=== PATIENT | female | born 1970 | race Caucasian/White ===

== ENCOUNTER 2019-03-24 10:55 | Emergency (ER) | payer OTHER, SELFPAY ==
[2019-03-24 11:03] VITALS: BP 161/97; PULSE 61; RESP 18; TEMP 36.6; O2SAT 100; BMI 27.8
--- NOTE | 2019-03-24 18:53 | ED.WOUNDLAC ---
HPI - Wound/Laceration General Chief Complaint: Wound/Laceration Stated Complaint: Cat scratch in eye Related Data Home Medications Medication Instructions Recorded Confirmed multivitamin [Multiple Vitamins] 2 tab PO QPM #0 03/25/17 ferrous sulfate 325 mg PO DAILY #0 08/04/17 bupropion HCl 100 mg PO BID 03/24/19 03/24/19 buspirone 5 mg PO TID PRN 03/24/19 03/24/19 ergocalciferol (vitamin D2) 50,000 unit PO WEEKLY 03/24/19 03/24/19 estradiol 0.1 mg TOPICAL QWEEK 03/24/19 03/24/19 gabapentin 100 mg PO TID 03/24/19 oxycodone-acetaminophen 1 tab PO Q6H PRN 03/24/19 03/24/19 phentermine 18.75 - 37.5 mg PO QAM PRN 03/24/19 03/24/19 Allergies Allergy/AdvReac Type Severity Reaction Status Date / Time amoxicillin [AMOXICILLIN] Allergy Severe SWELLING Unverified 10/20/17 12:05 FACE, THROAT & HIVES ALL OVER. Penicillins [PENICILLINS] Allergy Intermediate RASH/ITCHING, Unverified 10/20/17 12:05 TROUBLE BREATHING. diphenhydramine Allergy Mild SWELLING. Unverified 10/20/17 12:05 [DIPHENHYDRAMINE] latex [LATEX] Allergy Mild RASH Unverified 10/20/17 12:05 magnesium citrate AdvReac Unknown VOMITING Unverified 10/20/17 12:05 [MAGNESIUM CITRATE] Exam Initial Vital Signs Initial Vital Signs: Vital Signs Temperature 97.9 F 03/24/19 11:03 Pulse Rate 61 03/24/19 11:03 Respiratory Rate 18 03/24/19 11:03 Blood Pressure 161/97 H 03/24/19 11:03 Pulse Oximetry 100 03/24/19 11:03 Course Vital Signs Vital signs: Vital Signs - 8 hr 03/24/19 11:03 Temperature 97.9 F Pulse Rate 61 Respiratory Rate 18 Blood Pressure 161/97 H Pulse Oximetry 100 Discharge Plan Departure Patient Disposition: Left Without Being Seen Clinical Impression: Patient left before evaluation by physician Discharge Date/Time: 03/24/19 17:07
== END 2019-03-24 17:07 | disposition left against medical advice (07) ==
PROVIDERS: Emergency Provider Emergency Medicine
DX: H57.89 Other specified disorders of eye and adnexa (principal)
CPT/HCPCS: 99282

== ENCOUNTER 2019-03-25 07:06 | Emergency (ER) | payer OTHER, SELFPAY ==
[2019-03-25 07:21] VITALS: BP 153/98; PULSE 62; RESP 20; TEMP 36.8; O2SAT 99
--- NOTE | 2019-03-25 07:27 | ED.WOUNDLAC ---
HPI - Wound/Laceration General Chief Complaint: Wound/Laceration Stated Complaint: Cat scratch on eyelid Time Seen by Provider: 03/25/19 07:27 Source: patient Mode of arrival: ambulatory Limitations: no limitations History of Present Illness HPI narrative: This is a 48-year-old female comes to the emergency department complaint of a scratch above her left eye on the eyelid that has had increasing swelling and redness over the last 24 hours. Patient actually arrived yesterday but left without being seen. The scratch it happened in the morning or overnight. She states since then there has been some increasing redness of the upper lid and some increasing swelling. She has some pain localized at that site. She denies any pain in the eye itself. She has not had any fever she is aware of. She states that there seems to be some slight swelling along the corners of the eye. Patient has not had severe headaches. She has not had any nausea vomiting. She states that it felt like there were bumps inside her mouth but that they went away patient states that she has history of fibromyalgia and it flared yesterday while waiting so she returned home. She states that she has had a hysterectomy in the past. She states she has allergies to antibiotics but that they are in the computer system. Patient denies any use of tobacco. States her tetanus is up-to-date as of 2016. Related Data Home Medications Medication Instructions Recorded Confirmed multivitamin [Multiple Vitamins] 2 tab PO QPM #0 03/25/17 ferrous sulfate 325 mg PO DAILY #0 08/04/17 bupropion HCl 100 mg PO BID 03/24/19 03/24/19 buspirone 5 mg PO TID PRN 03/24/19 03/24/19 ergocalciferol (vitamin D2) 50,000 unit PO WEEKLY 03/24/19 03/24/19 estradiol 0.1 mg TOPICAL QWEEK 03/24/19 03/24/19 gabapentin 100 mg PO TID 03/24/19 oxycodone-acetaminophen 1 tab PO Q6H PRN 03/24/19 03/24/19 phentermine 18.75 - 37.5 mg PO QAM PRN 03/24/19 03/24/19 Previous Rx's Medication Instructions Recorded doxycycline hyclate 100 mg PO BID #20 tab 03/25/19 Allergies Allergy/AdvReac Type Severity Reaction Status Date / Time amoxicillin [AMOXICILLIN] Allergy Severe SWELLING Verified 03/25/19 07:21 FACE, THROAT & HIVES ALL OVER. Penicillins [PENICILLINS] Allergy Intermediate RASH/ITCHING, Verified 03/25/19 07:21 TROUBLE BREATHING. diphenhydramine Allergy Mild SWELLING. Verified 03/25/19 07:21 [DIPHENHYDRAMINE] latex [LATEX] Allergy Mild RASH Verified 03/25/19 07:21 magnesium citrate AdvReac Unknown VOMITING Verified 03/25/19 07:21 [MAGNESIUM CITRATE] Review of Systems Review of Systems ROS Unobtainable: All systems reviewed & are unremarkable except as noted in HPI and below Constitutional Constitutional: Denies chills, Denies fever(s), Denies headache(s), Denies lethargy and Denies weakness Eyes Eyes: Denies change in vision, Denies eye discharge, Denies irritation, Denies loss of vision, Denies eye pain and Denies photophobia ENT Ears, Nose, Mouth, and Throat: Reports as per HPI, Denies headache(s) and Reports other (swelling, redness upper eyelid) Gastrointestinal Gastrointestinal: Denies nausea and Denies vomiting Integumentary/Breasts Skin/Breast: Reports as per HPI, Reports erythema and Reports wounds Neurologic Neurologic: Denies headache(s), Denies loss of vision and Denies weakness [facility] Social History Smoking Status: Never smoker Social History Smoking Status: Never smoker Exam Narrative Exam Narrative: GEN: well nourished, well appearing female, alert and oriented x 3, patient appears to be in mild distress. HEENT: Atraumatic, pupils are equal round reactive to light, extraocular movements are intact, patient has a small a 0.5 cm superficial laceration of the left upper lid over the area of the orbit patient has some swelling of the upper lid and orbit, there is some slight erythema, area slightly tender to touch, there is no drainage, there is no swelling noted extending around the eye or below, nares are clear, TMs are clear with no fluid, there is no conjunctival pallor. Throat is clear without any exudates, erythema, tonsillar enlargement or uvular deviation HEART: Regular rate and rhythm without murmur LUNGS:Lungs clear to auscultation, no wheezes, rales, crackles, chest moves symmetrically ABD:bowel sounds normal, soft, non-tender, no guarding, rebound, rigidity, no masses noted, no hepatosplenomegaly MSCL: full range of motion, normal gait NEURO:CN 2-12 intact, sensation normal Initial Vital Signs Initial Vital Signs: Vital Signs Temperature 98.3 F 03/25/19 07:21 Pulse Rate 62 03/25/19 07:21 Respiratory Rate 20 03/25/19 07:21 Blood Pressure 153/98 H 03/25/19 07:21 Pulse Oximetry 99 03/25/19 07:21 Course Orders Ordered: Discontinued Medications Doxycycline Hyclate (Vibramycin) 100 mg PO NOW ONE Stop: 03/25/19 07:46 Last Admin: 03/25/19 07:58 Dose: 100 mg Documented by: LENORA Vital Signs Vital signs: Vital Signs - 8 hr 03/25/19 07:21 Temperature 98.3 F Pulse Rate 62 Respiratory Rate 20 Blood Pressure 153/98 H Pulse Oximetry 99 MDM - Wound/Laceration MDM Narrative Medical decision making narrative: The patient has cellulitis from a small cat scratch, tetanus is up-to-date. Patient states CT is immunized. Patient states that she has allergies to medications she does not recall but states they are in the computer. When reviewed set amoxicillin sutured wound asked directly she thought that she also had allergies to Augmentin. There is potentially some cross-reactivity so patient was started on doxycycline. Discharge Plan Departure Patient Disposition: Home Clinical Impression: Cat scratch of face, Cellulitis of eyelid Discharge Date/Time: 03/25/19 08:34 Instructions: DI for Cat Scratch Disease/Fever Activity Restrictions/Additional Instructions: Follow up for recheck if not improving in the next 24-48 hours. Take antibiotics until completely gone. You may take tylenol and/or ibuprofen as needed for pain. Return to the emergency department for fevers greater than 100.4 F, rapidly worsening redness, swelling, pain within the eye, new vision changes, any purulent drainage, severe headaches, persistent vomiting or other new or concerning symptoms. Prescriptions: New doxycycline hyclate 100 mg tablet 100 mg PO BID Qty: 20 RF: 0 No Action multivitamin [Multiple Vitamins] 1 EACH tablet 2 tab PO QPM Qty: 0 RF: 0 ferrous sulfate 325 mg (65 mg iron) Tablet 325 mg PO DAILY Qty: 0 RF: 0 buspirone 5 mg tablet 5 mg PO TID PRN (Reason: Anxiety) RF: 0 phentermine 37.5 mg tablet 18.75 - 37.5 mg PO QAM PRN (Reason: weight loss) RF: 0 bupropion HCl 100 mg tablet sustained-release 12 hr 100 mg PO BID RF: 0 oxycodone-acetaminophen 5-325 mg tablet 1 tab PO Q6H PRN (Reason: pain) RF: 0 gabapentin 100 mg capsule 100 mg PO TID RF: 0 ergocalciferol (vitamin D2) 50,000 unit capsule 50,000 unit PO WEEKLY RF: 0 estradiol 0.1 mg/24 hr patch weekly 0.1 mg topical QWEEK RF: 0 Referrals: Julian Madera MD [Primary Care Provider] -
[2019-03-25] MEDS: DOXYCYCLINE HYCLATE 100 MG TABLET PO (07:58)
[2019-03-25 08:30] VITALS: BP 147/92; PULSE 83; RESP 14; O2SAT 98
== END 2019-03-25 08:34 | disposition home or self-care (01) ==
PROVIDERS: Emergency Provider Emergency Medicine
DX: S00.212A Abrasion of left eyelid and periocular area, initial encounter (principal); H00.036 Abscess of eyelid left eye, unspecified eyelid
CPT/HCPCS: 99282; 99283

== ENCOUNTER 2019-04-25 12:18 | Emergency (ER) | payer OTHER, SELFPAY ==
[2019-04-25 12:21] VITALS: BP 157/97; PULSE 73; RESP 18; TEMP 36.1; O2SAT 99
[2019-04-25 13:09] LABS: Add Manual Diff / Slide Review NO; Basophils Absolute Auto 0 /uL (0-100); Basophils Percent Auto 0.2 % (0-2); Eosinophils Absolute Auto 100 /uL (0-450); Eosinophils Percent Auto 1.1 % (2-4); Hematocrit 38.1 % (36-46); Hemoglobin 12.9 g/dL (12.0-16.0); Lymphocytes Absolute Auto 1200 /uL (1100-4500); Lymphocytes Percent Auto 19.4 % (25-40); Mean Corpuscular Hemoglobin 29.4 PG (26-34); Mean Corpuscular Volume 86.6 fL (80-100); Monocytes Absolute Auto 400 /uL (0-900); Neutrophils Absolute Auto 4600 /uL (1500-7000); Neutrophils Percent Auto 72.3 % (50-75); Platelet Count 173 X10^3/uL (150-400); Red Cell Distribution Width 13.5 % (11.6-14.8); White Blood Cell Count 6.4 X10^3/uL (4.5-11.0)
[2019-04-25 13:12] LABS: INR 0.9 (0.9-1.3); Prothrombin Time 10.6 SECONDS (10.1-12.7)
[2019-04-25 13:14] LABS: PTT Partial Thromboplastin Tim 36 SECONDS (26.4-36.2)
[2019-04-25 13:17] LABS: Alanine Aminotransferase 29 IU/L (9-52); Albumin 4.3 g/dL (3.5-5.0); Albumin Globulin Ratio 1.9 (1.0-2.8); Alkaline Phosphatase 62 U/L (38-126); Aspartate Aminotransferase 32 IU/L (14-36); Bilirubin Total 0.5 mg/dL (0.2-1.3); Blood Urea Nitrogen 17 mg/dL (7-17); Calcium 9.3 mg/dL (8.4-10.2); Carbon Dioxide 28 mmol/L (22-32); Chloride 105 mmol/L (98-107); Estimated Glomerular Filt Rate > 60.0 mL/min (>60); Globulin 2.3 g/dL (1.7-4.1); Glucose 87 mg/dL (70-100); HEMOLYSIS < 15 (0-50); Lipase 234 U/L (23-300); Potassium 3.8 mmol/L (3.4-5.1); Sodium 142 mmol/L (137-145); Total Protein 6.6 g/dL (6.3-8.2)
[2019-04-25 13:42] LABS: Bacteria Urine None Seen; RBC Urine None Seen (0-5/HPF); WBC Urine None Seen (0-5/HPF)
--- NOTE | 2019-04-25 13:48 | PC.NURSE ---
Pt brought urine over to RN desk. UAC and UDS sent. pt asking can i go home now advised she needs to be seen by provider. states she is here for low blood sugar and that she recently stopped taking all my meds without reason. BG 78 in triage. given juice and crackers. repeat at this time 93. appears well, drowsy. lungs clear. resting on stretcher. labs drawn in triage and awaiting results. NAD.
[2019-04-25 13:51] LABS: UR Morphine/Opiate cutoff 300 Negative (Negative); Ur Creatinine Normal (Normal); Ur Specific Gravity Normal (Normal); Urine Amphetamines Negative (Negative); Urine Barbiturates Negative (Negative); Urine Benzodiazepines Negative (Negative); Urine Cocaine Negative (Negative); Urine MDMA Negative (Negative); Urine Methadone Negative (Negative); Urine Methamphetamines Negative (Negative); Urine Oxycodone Negative (Negative); Urine Phencyclidine Negative (Negative); Urine Tetrahydrocannabinol Negative (Negative); Urine Tricyclic Antidepressant Negative (Negative); Urine pH Normal (Normal)
[2019-04-25 13:52] LABS: Calcium Oxalate Crystals Urine Few; Culture Indicated Urine Cult Not Indicated
[2019-04-25 14:19] VITALS: BP 145/78; BP 148/90; PULSE 63; PULSE 77; RESP 16; RESP 18; O2SAT 97; O2SAT 99
--- NOTE | 2019-04-25 19:38 | ED.DIZZY ---
HPI - Dizziness <Kaye Maradiaga NOODLE PRESS OPERATOR-BC - Last Filed: 04/25/19 20:01> General Chief Complaint: Dizziness Stated Complaint: low blood sugar Time Seen by Provider: 04/25/19 12:45 Source: patient Mode of arrival: Ambulatory Limitations: no limitations History of Present Illness HPI Narrative: The patient is a 48-year-old female nonsmoker with a chief complaint of ?my blood sugar was low.The patient denies any history of diabetes. She states that she has a history of hypoglycemia. She states that she felt her blood sugar was low, so she ate some sugar and she use and did not come back up. She states she had a sugar stick and felt slightly better but not fully recovered so she wanted to come to the emergency department. She states that she felt shaky and like her blood sugar was low, but she did not check it. She denies any fevers nausea vomiting diarrhea or chest pain. She denies any cardiac history. Her blood sugar was taken in triage and it was 78, so she was given food and fluids. She states she feels much improved. The patient also notes that she stopped taking her medications 2 weeks ago and has been slowly restarting them. She states she has not followed up with regular doctor regarding her medications Related Data Home Medications Medication Instructions Recorded Confirmed multivitamin [Multiple Vitamins] 2 tab PO QPM #0 03/25/17 ferrous sulfate 325 mg PO DAILY #0 08/04/17 buspirone 5 mg PO TID PRN 03/24/19 03/24/19 ergocalciferol (vitamin D2) 50,000 unit PO WEEKLY 03/24/19 04/25/19 estradiol 0.1 mg TOPICAL QWEEK 03/24/19 04/25/19 gabapentin 100 mg PO TID 03/24/19 04/25/19 oxycodone-acetaminophen 1 tab PO Q6H PRN 03/24/19 04/25/19 phentermine 18.75 - 37.5 mg PO QAM PRN 03/24/19 04/25/19 bupropion HCl 100 mg PO BID 04/25/19 04/25/19 Allergies Allergy/AdvReac Type Severity Reaction Status Date / Time amoxicillin [AMOXICILLIN] Allergy Severe SWELLING Verified 04/25/19 12:26 FACE, THROAT & HIVES ALL OVER. Penicillins [PENICILLINS] Allergy Intermediate RASH/ITCHING, Verified 04/25/19 12:26 TROUBLE BREATHING. diphenhydramine Allergy Mild SWELLING. Verified 04/25/19 12:26 [DIPHENHYDRAMINE] latex [LATEX] Allergy Mild RASH Verified 04/25/19 12:26 magnesium citrate AdvReac Unknown VOMITING Verified 04/25/19 12:26 [MAGNESIUM CITRATE] Review of Systems <JAIME Salazar - Last Filed: 04/25/19 20:01> Review of Systems Narrative: GENERAL: Denies chills, fatigue, malaise, fever, sweats. HEENT: Denies sinus pain, ear pain, sore throat, difficulty swallowing, dizziness. RESPIRATORY: Denies dyspnea, cough, wheezing, hemoptysis, sputum. CARDIOVASCULAR: Denies chest pain, palpitations, orthopnea, edema, GASTROINTESTINAL: Denies nausea, vomiting, abdominal pain, diarrhea, constipation, melena. : Denies dysuria, frequency, incontinence, hematuria, urinary retention. MUSCULOSKELETAL: denies weakness, joint pain, or bony pain SKIN: Denies rash, skin lesions, or other NEUROLOGIC: See HPI PSYCHIATRIC: No concerning psychosocial issues. 12 point review of systems is negative except for those stated above Patient History <JAIME Salazar - Last Filed: 04/25/19 20:01> Social History Smoking Status: Never smoker alcohol intake frequency: 0-2 drinks per day Substance Use Type: does not use Exam <JAIME Salazar - Last Filed: 04/25/19 20:01> Narrative Exam Narrative: GENERAL: This is a well-nourished, well-developed patient, no acute distress HEAD: Atraumatic. Normocephalic. No temporal or scalp tenderness. EYES: Pupils equal round and reactive. Extraocular motions intact. No scleral icterus. No injection or drainage. ENT: Nose without bleeding, purulent drainage or septal hematoma. Throat without erythema, tonsillar hypertrophy or exudate. Uvula midline. Airway patent. NECK: Trachea midline. No JVD or lymphadenopathy. Supple, nontender, no meningeal signs. CARDIOVASCULAR: Regular rate and rhythm without murmurs, gallops, or rubs. RESPIRATORY: Clear to auscultation. Breath sounds equal bilaterally. No wheezes, rales, or rhonchi. No cough. No increased respiratory effort. No accessory muscle use. GASTROINTESTINAL: Abdomen soft, non-tender, nondistended. No hepato-splenomegaly, or palpable masses. No guarding. EXTREMITIES: No clubbing, cyanosis, or edema. No joint tenderness, effusion, or edema noted. BACK: Nontender without deformity or crepitance. No flank tenderness. NEURO: AOx3. No slurred speech. Steady gait. Strength is equal upper and lower extremities bilaterally. No gross cranial nerve deficit. SKIN: No rash or erythema. Initial Vital Signs Initial Vital Signs: Vital Signs Temperature 97.0 F L 04/25/19 12:21 Pulse Rate 73 04/25/19 12:21 Respiratory Rate 18 04/25/19 12:21 Blood Pressure 157/97 H 04/25/19 12:21 Pulse Oximetry 99 04/25/19 12:21 <Kingsley Harris DO - Last Filed: 05/01/19 07:01> Initial Vital Signs Initial Vital Signs: Vital Signs Temperature 97.0 F L 04/25/19 12:21 Pulse Rate 73 04/25/19 12:21 Respiratory Rate 18 04/25/19 12:21 Blood Pressure 157/97 H 04/25/19 12:21 Pulse Oximetry 99 04/25/19 12:21 Scores <KATARZYNA Salazar - Last Filed: 04/25/19 20:01> GCS [place] coma scale eye opening: Spontaneous Rhys coma scale verbal response: Orientated Rhys coma scale motor response: Obey commands Rhys coma scale total score: 15 Course <KATARZYNA Salazar - Last Filed: 04/25/19 20:01> Orders Ordered: ED Orders 04/25/19 12:55 Complete Blood Count AUTO DIFF Stat Comprehensive Metabolic Panel Stat Lipase Stat Partial Thromboplastin Time Stat Prothrombin Time INR Stat 04/25/19 13:23 Urine Drug Screen, Rapid Stat Urine Microscopic Stat Vital Signs Vital signs: Vital Signs - 8 hr 04/25/19 12:21 04/25/19 14:19 Temperature 97.0 F L Pulse Rate 73 77 Respiratory Rate 18 16 Blood Pressure 157/97 H 148/90 H Pulse Oximetry 99 97 <DO Hunter Arevalo Last Filed: 05/01/19 07:01> Orders Ordered: ED Orders 04/25/19 12:55 Complete Blood Count AUTO DIFF Stat Comprehensive Metabolic Panel Stat Lipase Stat Partial Thromboplastin Time Stat Prothrombin Time INR Stat 04/25/19 13:23 Urine Drug Screen, Rapid Stat Urine Microscopic Stat Vital Signs Vital signs: Vital Signs - 8 hr 04/25/19 12:21 04/25/19 14:19 Temperature 97.0 F L Pulse Rate 73 77 Respiratory Rate 18 16 Blood Pressure 157/97 H 148/90 H Pulse Oximetry 99 97 MDM - Dizziness <JAIME SalazarBC - Last Filed: 04/25/19 20:01> Lab Data Result diagrams: 04/25/19 12:55 04/25/19 12:55 Labs: Lab Results 04/25/19 04/25/19 04/25/19 Range/Units 12:55 12:55 12:55 WBC 6.4 (4.5-11.0) X10^3/uL RBC 4.40 (4.0-5.2) X10^6/uL Hgb 12.9 (12.0-16.0) g/dL Hct 38.1 (36-46) % MCV 86.6 (80-100) fL MCH 29.4 (26-34) PG MCHC 34.0 (30-36) % RDW 13.5 (11.6-14.8) % Plt Count 173 (150-400) X10^3/uL Neut % (Auto) 72.3 (50-75) % Lymph % (Auto) 19.4 L (25-40) % [place] % (Auto) 7.0 (3-14) % Eos % (Auto) 1.1 L (2-4) % Baso % (Auto) 0.2 (0-2) % Neut # (Auto) 4600 (8047-6816) /uL Lymph # (Auto) 1200 (4841-6946) /uL [place] # (Auto) 400 (0-900) /uL Eos # (Auto) 100 (0-450) /uL Baso # (Auto) 0 (0-100) /uL PT 10.6 (10.1-12.7) SECONDS INR 0.9 (0.9-1.3) APTT 36 (26.4-36.2) SECONDS Sodium 142 (137-145) mmol/L Potassium 3.8 (3.4-5.1) mmol/L Chloride 105 (98-107) mmol/L Carbon Dioxide 28 (22-32) mmol/L BUN 17 (7-17) mg/dL Creatinine 0.50 L (0.52-1.04) mg/dL Estimated GFR > 60.0 (>60) mL/min BUN/Creatinine Ratio 34.0 H (6-22) Glucose 87 (70-100) mg/dL Calcium 9.3 (8.4-10.2) mg/dL Total Bilirubin 0.5 (0.2-1.3) mg/dL AST 32 (14-36) IU/L ALT 29 (9-52) IU/L Alkaline Phosphatase 62 (38-126) U/L Total Protein 6.6 (6.3-8.2) g/dL Albumin 4.3 (3.5-5.0) g/dL Globulin 2.3 (1.7-4.1) g/dL Albumin/Globulin Ratio 1.9 (1.0-2.8) Lipase 234 (23-300) U/L Urine RBC (0-5/HPF) Urine WBC (0-5/HPF) Calcium Oxalate Crystal Urine Bacteria (None) Ur Culture Indicated? U Morph 300 ng/mL cutoff (Negative) Ur Oxycodone Screen (Negative) Urine Methadone Screen (Negative) Ur Barbiturates Screen (Negative) U Tricyclic Antidepress (Negative) Ur Phencyclidine Scrn (Negative) Ur Amphetamines Screen (Negative) U Methamphetamines Scrn (Negative) Ur MDMA Scrn (Ecstasy) (Negative) U Benzodiazepines Scrn (Negative) Urine Cocaine Screen (Negative) U Marijuana (THC) Screen (Negative) 04/25/19 04/25/19 Range/Units 13:23 13:23 WBC (4.5-11.0) X10^3/uL RBC (4.0-5.2) X10^6/uL Hgb (12.0-16.0) g/dL Hct (36-46) % MCV (80-100) fL MCH (26-34) PG MCHC (30-36) % RDW (11.6-14.8) % Plt Count (150-400) X10^3/uL Neut % (Auto) (50-75) % Lymph % (Auto) (25-40) % [place] % (Auto) (3-14) % Eos % (Auto) (2-4) % Baso % (Auto) (0-2) % Neut # (Auto) (1271-9430) /uL Lymph # (Auto) (7153-0301) /uL [place] # (Auto) (0-900) /uL Eos # (Auto) (0-450) /uL Baso # (Auto) (0-100) /uL PT (10.1-12.7) SECONDS INR (0.9-1.3) APTT (26.4-36.2) SECONDS Sodium (137-145) mmol/L Potassium (3.4-5.1) mmol/L Chloride (98-107) mmol/L Carbon Dioxide (22-32) mmol/L BUN (7-17) mg/dL Creatinine (0.52-1.04) mg/dL Estimated GFR (>60) mL/min BUN/Creatinine Ratio (6-22) Glucose (70-100) mg/dL Calcium (8.4-10.2) mg/dL Total Bilirubin (0.2-1.3) mg/dL AST (14-36) IU/L ALT (9-52) IU/L Alkaline Phosphatase (38-126) U/L Total Protein (6.3-8.2) g/dL Albumin (3.5-5.0) g/dL Globulin (1.7-4.1) g/dL Albumin/Globulin Ratio (1.0-2.8) Lipase (23-300) U/L Urine RBC None seen (0-5/HPF) Urine WBC None seen (0-5/HPF) Calcium Oxalate Crystal Few H Urine Bacteria None seen (None) Ur Culture Indicated? Cult not indicated U Morph 300 ng/mL cutoff Negative (Negative) Ur Oxycodone Screen Negative (Negative) Urine Methadone Screen Negative (Negative) Ur Barbiturates Screen Negative (Negative) U Tricyclic Antidepress Negative (Negative) Ur Phencyclidine Scrn Negative (Negative) Ur Amphetamines Screen Negative (Negative) U Methamphetamines Scrn Negative (Negative) Ur MDMA Scrn (Ecstasy) Negative (Negative) U Benzodiazepines Scrn Negative (Negative) Urine Cocaine Screen Negative (Negative) U Marijuana (THC) Screen Negative (Negative) Point of Care Testing Glucose POC 93 Urine Dip Bedside Urine Glucose Negative Bedside Urine Bilirubin + 1 Bedside Urine Ketone - Negative Urine Specific [place] 1.020 Bedside Urine Occult Blood - Negative Bedside Urine pH 6.0 Bedside Urine Protein - Negative Bedside Urine Urobilinogen - Negative Bedside Urine Nitrite - Negative Bedside Urine Leukocytes - Negative Esterase MDM Narrative Medical decision making narrative: The patient is a 48-year-old female who presents with a chief complaint of my blood sugar was low earlier.She overall has a benign exam, is not hypoglycemic in the emergency department after a snack. The patient declined any EKG, imaging or further workup. She states that her heart is fine. After a nap, she requested to leave and stated she did not want further workup and wanted to go home. I did encourage the patient to follow up with primary care provider and encouraged not changing her medications and dosages by her own accord. I instructed her to come back to the emergency department for any acute concerns such as concern of heart attack or stroke. Patient has no questions or concerns upon discharge and states understanding of return precautions as well as follow-up care. <Kingsley Harris, DO - Last Filed: 05/01/19 07:01> Lab Data Labs: Lab Results 04/25/19 04/25/19 04/25/19 Range/Units 12:55 12:55 12:55 WBC 6.4 (4.5-11.0) X10^3/uL RBC 4.40 (4.0-5.2) X10^6/uL Hgb 12.9 (12.0-16.0) g/dL Hct 38.1 (36-46) % MCV 86.6 (80-100) fL MCH 29.4 (26-34) PG MCHC 34.0 (30-36) % RDW 13.5 (11.6-14.8) % Plt Count 173 (150-400) X10^3/uL Neut % (Auto) 72.3 (50-75) % Lymph % (Auto) 19.4 L (25-40) % [place] % (Auto) 7.0 (3-14) % Eos % (Auto) 1.1 L (2-4) % Baso % (Auto) 0.2 (0-2) % Neut # (Auto) 4600 (4559-3294) /uL Lymph # (Auto) 1200 (4774-2269) /uL [place] # (Auto) 400 (0-900) /uL Eos # (Auto) 100 (0-450) /uL Baso # (Auto) 0 (0-100) /uL PT 10.6 (10.1-12.7) SECONDS INR 0.9 (0.9-1.3) APTT 36 (26.4-36.2) SECONDS Sodium 142 (137-145) mmol/L Potassium 3.8 (3.4-5.1) mmol/L Chloride 105 (98-107) mmol/L Carbon Dioxide 28 (22-32) mmol/L BUN 17 (7-17) mg/dL Creatinine 0.50 L (0.52-1.04) mg/dL Estimated GFR > 60.0 (>60) mL/min BUN/Creatinine Ratio 34.0 H (6-22) Glucose 87 (70-100) mg/dL Calcium 9.3 (8.4-10.2) mg/dL Total Bilirubin 0.5 (0.2-1.3) mg/dL AST 32 (14-36) IU/L ALT 29 (9-52) IU/L Alkaline Phosphatase 62 (38-126) U/L Total Protein 6.6 (6.3-8.2) g/dL Albumin 4.3 (3.5-5.0) g/dL Globulin 2.3 (1.7-4.1) g/dL Albumin/Globulin Ratio 1.9 (1.0-2.8) Lipase 234 (23-300) U/L Urine RBC (0-5/HPF) Urine WBC (0-5/HPF) Calcium Oxalate Crystal Urine Bacteria (None) Ur Culture Indicated? U Morph 300 ng/mL cutoff (Negative) Ur Oxycodone Screen (Negative) Urine Methadone Screen (Negative) Ur Barbiturates Screen (Negative) U Tricyclic Antidepress (Negative) Ur Phencyclidine Scrn (Negative) Ur Amphetamines Screen (Negative) U Methamphetamines Scrn (Negative) Ur MDMA Scrn (Ecstasy) (Negative) U Benzodiazepines Scrn (Negative) Urine Cocaine Screen (Negative) U Marijuana (THC) Screen (Negative) 04/25/19 04/25/19 Range/Units 13:23 13:23 WBC (4.5-11.0) X10^3/uL RBC (4.0-5.2) X10^6/uL Hgb (12.0-16.0) g/dL Hct (36-46) % MCV (80-100) fL MCH (26-34) PG MCHC (30-36) % RDW (11.6-14.8) % Plt Count (150-400) X10^3/uL Neut % (Auto) (50-75) % Lymph % (Auto) (25-40) % [place] % (Auto) (3-14) % Eos % (Auto) (2-4) % Baso % (Auto) (0-2) % Neut # (Auto) (9279-1745) /uL Lymph # (Auto) (4769-3291) /uL [place] # (Auto) (0-900) /uL Eos # (Auto) (0-450) /uL Baso # (Auto) (0-100) /uL PT (10.1-12.7) SECONDS INR (0.9-1.3) APTT (26.4-36.2) SECONDS Sodium (137-145) mmol/L Potassium (3.4-5.1) mmol/L Chloride (98-107) mmol/L Carbon Dioxide (22-32) mmol/L BUN (7-17) mg/dL Creatinine (0.52-1.04) mg/dL Estimated GFR (>60) mL/min BUN/Creatinine Ratio (6-22) Glucose (70-100) mg/dL Calcium (8.4-10.2) mg/dL Total Bilirubin (0.2-1.3) mg/dL AST (14-36) IU/L ALT (9-52) IU/L Alkaline Phosphatase (38-126) U/L Total Protein (6.3-8.2) g/dL Albumin (3.5-5.0) g/dL Globulin (1.7-4.1) g/dL Albumin/Globulin Ratio (1.0-2.8) Lipase (23-300) U/L Urine RBC None seen (0-5/HPF) Urine WBC None seen (0-5/HPF) Calcium Oxalate Crystal Few H Urine Bacteria None seen (None) Ur Culture Indicated? Cult not indicated U Morph 300 ng/mL cutoff Negative (Negative) Ur Oxycodone Screen Negative (Negative) Urine Methadone Screen Negative (Negative) Ur Barbiturates Screen Negative (Negative) U Tricyclic Antidepress Negative (Negative) Ur Phencyclidine Scrn Negative (Negative) Ur Amphetamines Screen Negative (Negative) U Methamphetamines Scrn Negative (Negative) Ur MDMA Scrn (Ecstasy) Negative (Negative) U Benzodiazepines Scrn Negative (Negative) Urine Cocaine Screen Negative (Negative) U Marijuana (THC) Screen Negative (Negative) Point of Care Testing Glucose POC 93 Urine Dip Bedside Urine Glucose Negative Bedside Urine Bilirubin + 1 Bedside Urine Ketone - Negative Urine Specific [place] 1.020 Bedside Urine Occult Blood - Negative Bedside Urine pH 6.0 Bedside Urine Protein - Negative Bedside Urine Urobilinogen - Negative Bedside Urine Nitrite - Negative Bedside Urine Leukocytes - Negative Esterase Discharge Plan Departure Patient Disposition: Home Clinical Impression: Dizziness Discharge Date/Time: 04/25/19 14:20 Instructions: DI for Dizziness-Nonvertigo Activity Restrictions/Additional Instructions: Your blood sugar and your lab work came back well today. Your urine has no signs of infection. You have declined any further workup in the emergency department. Please follow up with primary care provider in a few days and come back to the emergency department if you have any acute concerns such as concern of heart attack or stroke etc. I strongly suggest that you take your regular medications as instructed by your primary care provider. Prescriptions: No Action multivitamin [Multiple Vitamins] 1 EACH tablet 2 tab PO QPM Qty: 0 RF: 0 ferrous sulfate 325 mg (65 mg iron) Tablet 325 mg PO DAILY Qty: 0 RF: 0 bupropion HCl 100 mg tablet sustained-release 12 hr 100 mg PO BID RF: 0 buspirone 5 mg tablet 5 mg PO TID PRN (Reason: Anxiety) RF: 0 phentermine 37.5 mg tablet 18.75 - 37.5 mg PO QAM PRN (Reason: weight loss) RF: 0 oxycodone-acetaminophen 5-325 mg tablet 1 tab PO Q6H PRN (Reason: pain) RF: 0 gabapentin 100 mg capsule 100 mg PO TID RF: 0 ergocalciferol (vitamin D2) 50,000 unit capsule 50,000 unit PO WEEKLY RF: 0 estradiol 0.1 mg/24 hr patch weekly 0.1 mg topical QWEEK RF: 0 Referrals: Julian Madera MD [Primary Care Provider] - <Kingsley Harris DO - Last Filed: 05/01/19 07:01> Sign Out Provider Sign Out Attestation: I was available for consultation during this patient's emergency department visit. This chart is signed by myself for administrative purposes only. I did not have direct contact with this patient during this visit. They were seen independently by the APC.
== END 2019-04-25 14:20 | disposition home or self-care (01) ==
PROVIDERS: Emergency Medicine; Emergency Provider Nurse Practitioner Family
DX: R42 Dizziness and giddiness (principal)
CPT/HCPCS: 36415; 80053; 80305; 81003; 81015; 82962; 83690; 85025; 85610; 85730; 99283

== ENCOUNTER 2019-07-29 14:36 | Emergency (ER) | payer SELFPAY ==
[2019-07-29] VITALS (7 sets, daily range): BP systolic 137–139; BP diastolic 72–86; PULSE 86–122; RESP 16–24; TEMP 37.7–38.3; O2SAT 95–99
--- NOTE | 2019-07-29 14:50 | DI.RAD.S_ITS ---
PROCEDURE: XR CHEST 1V INDICATIONS: suspected sepsis TECHNIQUE: One view of the chest was acquired. COMPARISON: [facility], CHEST 2 VIEW, 08/11/2009, 21:12. [facility], , CHEST 1 VIEW, 11/11/2009, 22:03. [facility], , CHEST 1 VIEW, 03/25/2017, 14:51. FINDINGS: Surgical changes and devices: Left upper quadrant postoperative changes are seen. Lungs and pleura: An incomplete inspiratory result is noted, causing a crowded appearance to the lung markings. No focal infiltrates are seen. No pneumothorax or significant pleural effusions are seen. Mediastinum: Mediastinal contours appear normal. Heart size is normal. Bones and chest wall: No suspicious bony lesions. Overlying soft tissues appear unremarkable. IMPRESSION: Limited portable chest examination, without a significant cardiopulmonary abnormality identified. Dictated by: Td Dumont M.D. on 07/29/2019 at 14:15 Approved by: Td Dumont M.D. on 07/29/2019 at 14:16
[2019-07-29] MEDS: ACETAMINOPHEN 325 MG TABLET 975 MG PO (15:28)
--- NOTE | 2019-07-29 15:29 | ED.FEVER ---
HPI - Fever General Chief Complaint: Fever Stated Complaint: bladder infection couple days ago having fever now Time Seen by Provider: 07/29/19 15:05 Source: patient Mode of arrival: Ambulatory Limitations: no limitations History of Present Illness HPI Narrative: Patient is a 48-year-old female who presents with bilateral flank pain fever and unknown UTI. She says that she was diagnosed with a UTI 5 days ago she was prescribed antibiotic but she has not picked it up yet. She continues to have urinary frequency but denies dysuria. She does have some blood in her urine. She is currently febrile and tachycardic. She denies nausea vomiting or abdominal pain. MD complaint: fever and weakness Related Data Home Medications Medication Instructions Recorded Confirmed multivitamin [Multiple Vitamins] 2 tab PO QPM #0 03/25/17 ferrous sulfate 325 mg PO DAILY #0 08/04/17 buspirone 5 mg PO TID PRN 03/24/19 03/24/19 ergocalciferol (vitamin D2) 50,000 unit PO WEEKLY 03/24/19 04/25/19 estradiol 0.1 mg TOPICAL QWEEK 03/24/19 04/25/19 gabapentin 100 mg PO TID 03/24/19 04/25/19 oxycodone-acetaminophen 1 tab PO Q6H PRN 03/24/19 04/25/19 phentermine 18.75 - 37.5 mg PO QAM PRN 03/24/19 04/25/19 bupropion HCl 100 mg PO BID 04/25/19 04/25/19 Previous Rx's Medication Instructions Recorded ciprofloxacin HCl [Cipro] 500 mg PO Q12H #14 tab 07/29/19 Allergies Allergy/AdvReac Type Severity Reaction Status Date / Time amoxicillin [AMOXICILLIN] Allergy Severe SWELLING Verified 04/25/19 12:26 FACE, THROAT & HIVES ALL OVER. Penicillins [PENICILLINS] Allergy Intermediate RASH/ITCHING, Verified 04/25/19 12:26 TROUBLE BREATHING. diphenhydramine Allergy Mild SWELLING. Verified 04/25/19 12:26 [DIPHENHYDRAMINE] latex [LATEX] Allergy Mild RASH Verified 04/25/19 12:26 magnesium citrate AdvReac Unknown VOMITING Verified 04/25/19 12:26 [MAGNESIUM CITRATE] Review of Systems Review of Systems Narrative: GENERAL: Denies chills, fatigue, malaise, fever, sweats, travel HEENT: Denies sinus pain, ear pain, sore throat, difficulty swallowing, neck pain RESPIRATORY: Denies dyspnea, cough, wheezing, hemoptysis, sputum. CARDIOVASCULAR: Denies chest pain, palpitations, orthopnea, edema GASTROINTESTINAL: Denies nausea, vomiting, abdominal pain, diarrhea, constipation, melena. : See HPI MUSCULOSKELETAL: Denies weakness, joint pain, or bony pain SKIN: No rash, no erythema, no pruritus NEUROLOGIC: Denies weakness, dizziness, headache, numbness, change in speech, confusion PSYCHIATRIC: No concerning psychosocial issues. 12 point review of systems is negative except for those stated above and HPI Patient History Medical History Fibromyalgia (Acute) Social History Smoking Status: Never smoker Smoking Status: Never smoker alcohol intake frequency: 0-2 drinks per day Substance Use Type: does not use Exam Initial Vital Signs Initial Vital Signs: Vital Signs Temperature 101 F H 07/29/19 14:46 Pulse Rate 122 H 07/29/19 14:46 Respiratory Rate 24 07/29/19 14:46 Blood Pressure 139/86 07/29/19 14:46 Pulse Oximetry 99 07/29/19 14:46 GENERAL: Well-appearing, well-nourished and in no acute distress. HEENT: Head atraumatic,EOMI, pupils reactive, face symmetric, moist mucous membranes CARDIOVASCULAR: Regular rate and rhythm without murmurs, rubs or gallops. RESPIRATORY: Breath sounds equal bilaterally, no wheezes rales or rhonchi. ABDOMEN: Soft, nontender. Normoactive bowel sounds all 4 quadrants. No guarding or rebound. : Mild bilateral flank pain CVA tenderness EXTREMITIES: Normal range of motion, no clubbing or edema. Neurovascularly intact NEUROLOGICAL: Alert and oriented x4.Normal gait and speech. Cranial nerves II through XII grossly intact. SKIN: Warm, dry, no laceration, no petechiae, no rashes or lesions. Course Orders Ordered: ED Orders 07/29/19 14:50 XR chest 1V Stat Urine Culture Stat Urine Microscopic Stat EKG-12 Lead Stat RT Consult Eval and Treat Now 07/29/19 15:45 Blood Culture Stat Complete Blood Count AUTO DIFF Stat Comprehensive Metabolic Panel Stat Lactate (Lactic Acid) Stat Lipase Stat Partial Thromboplastin Time Stat Procalcitonin Stat Prothrombin Time INR Stat Discontinued Medications Acetaminophen (Tylenol) 975 mg PO NOW ONE Stop: 07/29/19 15:23 Last Admin: 07/29/19 15:28 Dose: 975 mg Documented by: EDINSON Hydromorphone HCl (Dilaudid) 1 mg IV NOW ONE Stop: 07/29/19 16:55 Last Admin: 07/29/19 17:04 Dose: 1 mg Documented by: EDINSON Sodium Chloride (Normal Saline 0.9%) 1,000 mls @ 1,000 mls/hr IV BOLUS ONE Stop: 07/29/19 15:49 Last Infusion: 07/29/19 16:43 Dose: 0 mls/hr Documented by: Admin: 07/29/19 15:49 Dose: 1,000 mls/hr Documented by: SANDI Levofloxacin (Levaquin) 750 mg in 150 mls @ 100 mls/hr IV NOW ONE Stop: 07/29/19 17:16 Last Infusion: 07/29/19 17:32 Dose: 0 mls/hr Documented by: Admin: 07/29/19 15:50 Dose: 100 mls/hr Documented by: SANDI Ondansetron HCl (Zofran) 4 mg IV NOW ONE Stop: 07/29/19 14:51 Last Admin: 07/29/19 15:49 Dose: 4 mg Documented by: SANDI Vital Signs Vital signs: Vital Signs - 8 hr 07/29/19 14:46 07/29/19 15:28 07/29/19 16:29 Temperature 101 F H 101.0 F H 100.4 F H Pulse Rate 122 H Respiratory Rate 24 Blood Pressure 139/86 Blood Pressure [Left Arm] Pulse Oximetry 99 07/29/19 16:44 07/29/19 16:53 07/29/19 17:51 Temperature 99.9 F H 99.9 F H Pulse Rate 86 Respiratory Rate 20 Blood Pressure Blood Pressure [Left Arm] 137/72 Pulse Oximetry 95 07/29/19 18:06 Temperature Pulse Rate 87 Respiratory Rate 16 Blood Pressure 137/72 Blood Pressure [Left Arm] Pulse Oximetry 97 MDM - Fever Lab Data Attestation: I reviewed the patient's lab results. Result diagrams: 07/29/19 15:45 07/29/19 15:45 Labs: Lab Results 07/29/19 07/29/19 07/29/19 Range/Units 14:50 15:45 15:45 WBC 13.8 H (4.5-11.0) X10^3/uL RBC 4.52 (4.0-5.2) X10^6/uL Hgb 13.5 (12.0-16.0) g/dL Hct 39.5 (36-46) % MCV 87.4 (80-100) fL MCH 29.9 (26-34) PG MCHC 34.2 (30-36) % RDW 13.7 (11.6-14.8) % Plt Count 149 L (150-400) X10^3/uL Neut % (Auto) 83.2 H (50-75) % Lymph % (Auto) 5.9 L (25-40) % [place] % (Auto) 10.5 (3-14) % Eos % (Auto) 0.1 L (2-4) % Baso % (Auto) 0.3 (0-2) % Neut # (Auto) 79658 H (3480-2829) /uL Lymph # (Auto) 800 L (2882-4720) /uL [place] # (Auto) 1400 H (0-900) /uL Eos # (Auto) 0 (0-450) /uL Baso # (Auto) 0 (0-100) /uL PT 13.8 H (10.1-12.7) SECONDS INR 1.2 (0.9-1.3) APTT 38 H D (26.4-36.2) SECONDS Sodium (137-145) mmol/L Potassium (3.4-5.1) mmol/L Chloride (98-107) mmol/L Carbon Dioxide (22-32) mmol/L BUN (7-17) mg/dL Creatinine (0.52-1.04) mg/dL Estimated GFR (>60) mL/min BUN/Creatinine Ratio (6-22) Glucose (70-100) mg/dL Lactate (0.7-2.1) mmol/L Calcium (8.4-10.2) mg/dL Total Bilirubin (0.2-1.3) mg/dL AST (14-36) IU/L ALT (<35) IU/L Alkaline Phosphatase (38-126) U/L Total Protein (6.3-8.2) g/dL Albumin (3.5-5.0) g/dL Globulin (1.7-4.1) g/dL Albumin/Globulin Ratio (1.0-2.8) Lipase (23-300) U/L Procalcitonin (<0.5) ng/mL Urine RBC 30-100/hpf H (0-5/HPF) Urine WBC >100/hpf H (0-5/HPF) Amorphous Sediment 3+ Urine Bacteria None seen (None) Ur Culture Indicated? Specimen cultured 07/29/19 07/29/19 07/29/19 Range/Units 15:45 15:45 15:45 WBC (4.5-11.0) X10^3/uL RBC (4.0-5.2) X10^6/uL Hgb (12.0-16.0) g/dL Hct (36-46) % MCV (80-100) fL MCH (26-34) PG MCHC (30-36) % RDW (11.6-14.8) % Plt Count (150-400) X10^3/uL Neut % (Auto) (50-75) % Lymph % (Auto) (25-40) % [place] % (Auto) (3-14) % Eos % (Auto) (2-4) % Baso % (Auto) (0-2) % Neut # (Auto) (6539-5263) /uL Lymph # (Auto) (2142-2426) /uL [place] # (Auto) (0-900) /uL Eos # (Auto) (0-450) /uL Baso # (Auto) (0-100) /uL PT (10.1-12.7) SECONDS INR (0.9-1.3) APTT (26.4-36.2) SECONDS Sodium 135 L (137-145) mmol/L Potassium 3.8 (3.4-5.1) mmol/L Chloride 100 (98-107) mmol/L Carbon Dioxide 27 (22-32) mmol/L BUN 12 (7-17) mg/dL Creatinine 0.70 (0.52-1.04) mg/dL Estimated GFR > 60.0 (>60) mL/min BUN/Creatinine Ratio 17.1 (6-22) Glucose 118 H (70-100) mg/dL Lactate 1.0 (0.7-2.1) mmol/L Calcium 9.2 (8.4-10.2) mg/dL Total Bilirubin 1.1 (0.2-1.3) mg/dL AST 19 (14-36) IU/L ALT 13 (<35) IU/L Alkaline Phosphatase 81 (38-126) U/L Total Protein 7.0 (6.3-8.2) g/dL Albumin 3.9 (3.5-5.0) g/dL Globulin 3.1 (1.7-4.1) g/dL Albumin/Globulin Ratio 1.3 (1.0-2.8) Lipase 195 (23-300) U/L Procalcitonin 0.27 (<0.5) ng/mL Urine RBC (0-5/HPF) Urine WBC (0-5/HPF) Amorphous Sediment Urine Bacteria (None) Ur Culture Indicated? Urine Dip Bedside Urine Glucose Negative Bedside Urine Bilirubin - Negative Bedside Urine Ketone - Negative Urine Specific [place] 1.015 Bedside Urine Occult Blood +++ Bedside Urine pH 6.0 Bedside Urine Protein ++ 100 Bedside Urine Urobilinogen +/- 1mg Bedside Urine Nitrite + Positive Bedside Urine Leukocytes + 70 Esterase MDM Narrative Medical decision making narrative: Patient overall is tachycardic febrile with mild leukocytosis. She has an obvious UTI however her symptoms improved with fever control and IV fluids. She has no comorbidities. At this time recommend outpatient follow-up with antibiotics. She is given 1 dose of IV Levaquin she does have severe reactions to penicillins. 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 and start taking them tomorrow as prescribed *Continue to take medications as directed Cipro 500 mg twice a day for 7 days *Follow up with your primary care provider in 2-3 days *Return to ER if you should have fever not controlled increasing pain not tolerating fluids or any new, worsening or concerning symptoms Prescriptions: New ciprofloxacin HCl [Cipro] 500 mg tablet 500 mg PO Q12H Qty: 14 RF: 0 No Action multivitamin [Multiple Vitamins] 1 EACH tablet 2 tab PO QPM Qty: 0 RF: 0 ferrous sulfate 325 mg (65 mg iron) Tablet 325 mg PO DAILY Qty: 0 RF: 0 bupropion HCl 100 mg tablet sustained-release 12 hr 100 mg PO BID RF: 0 buspirone 5 mg tablet 5 mg PO TID PRN (Reason: Anxiety) RF: 0 phentermine 37.5 mg tablet 18.75 - 37.5 mg PO QAM PRN (Reason: weight loss) RF: 0 oxycodone-acetaminophen 5-325 mg tablet 1 tab PO Q6H PRN (Reason: pain) RF: 0 gabapentin 100 mg capsule 100 mg PO TID RF: 0 ergocalciferol (vitamin D2) 50,000 unit capsule 50,000 unit PO WEEKLY RF: 0 estradiol 0.1 mg/24 hr patch weekly 0.1 mg topical QWEEK RF: 0 Referrals: Julian Madera MD [Primary Care Provider] -
[2019-07-29] MEDS: SODIUM CHLORIDE 0.9% 1,000 ML 1000 ML IV (15:49)
[2019-07-29] MEDS: ONDANSETRON 4 MG/2 ML INJ IV (15:49)
[2019-07-29] MEDS: levoFLOXacin 750 MG/150 ML PIGGYBACK 100 MG IV (15:50)
[2019-07-29 16:01] LABS: Add Manual Diff / Slide Review NO; Basophils Absolute Auto 0 /uL (0-100); Basophils Percent Auto 0.3 % (0-2); Eosinophils Absolute Auto 0 /uL (0-450); Eosinophils Percent Auto 0.1 % (2-4); Hematocrit 39.5 % (36-46); Hemoglobin 13.5 g/dL (12.0-16.0); Lymphocytes Absolute Auto 800 /uL (1100-4500); Lymphocytes Percent Auto 5.9 % (25-40); Mean Corpuscular HGB Conc 34.2 % (30-36); Mean Corpuscular Hemoglobin 29.9 PG (26-34); Mean Corpuscular Volume 87.4 fL (80-100); Monocytes Absolute Auto 1400 /uL (0-900); Monocytes Percent Auto 10.5 % (3-14); Neutrophils Absolute Auto 11500 /uL (1500-7000); Neutrophils Percent Auto 83.2 % (50-75); Platelet Count 149 X10^3/uL (150-400); Red Blood Cell Count 4.52 X10^6/uL (4.0-5.2); Red Cell Distribution Width 13.7 % (11.6-14.8); White Blood Cell Count 13.8 X10^3/uL (4.5-11.0)
[2019-07-29 16:10] LABS: INR 1.2 (0.9-1.3); Prothrombin Time 13.8 SECONDS (10.1-12.7)
[2019-07-29 16:13] LABS: Alanine Aminotransferase 13 IU/L (<35); Albumin 3.9 g/dL (3.5-5.0); Albumin Globulin Ratio 1.3 (1.0-2.8); Alkaline Phosphatase 81 U/L (38-126); Aspartate Aminotransferase 19 IU/L (14-36); BUN Creatinine Ratio 17.1 (6-22); Bilirubin Total 1.1 mg/dL (0.2-1.3); Blood Urea Nitrogen 12 mg/dL (7-17); Calcium 9.2 mg/dL (8.4-10.2); Carbon Dioxide 27 mmol/L (22-32); Chloride 100 mmol/L (98-107); Estimated Glomerular Filt Rate > 60.0 mL/min (>60); Globulin 3.1 g/dL (1.7-4.1); Glucose 118 mg/dL (70-100); HEMOLYSIS < 15 (0-50); Lipase 195 U/L (23-300); PTT Partial Thromboplastin Tim 38 SECONDS (26.4-36.2); Potassium 3.8 mmol/L (3.4-5.1); Sodium 135 mmol/L (137-145)
[2019-07-29 16:36] LABS: Procalcitonin 0.27 ng/mL (<0.5)
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
[2019-07-29] MEDS: HYDROMORPHONE 1 MG INJ IV (17:04)
[2019-07-29 17:16] LABS: Amorphous Sediment Urine 3+; Bacteria Urine None Seen; Culture Indicated Urine Specimen Cultured; RBC Urine 30-100/HPF (0-5/HPF); WBC Urine >100/HPF (0-5/HPF)
== END 2019-07-29 18:07 | disposition home or self-care (01) ==
PROVIDERS: Emergency Provider Emergency Medicine
DX: N39.0 Urinary tract infection, site not specified (principal); N10 Acute pyelonephritis; R00.0 Tachycardia, unspecified
CPT/HCPCS: 36415; 71045; 80053; 81003; 81015; 83605; 83690; 84145; 85025; 85610; 85730; 87040; 87077; 87086; 87186; 93005; 96365; 96366; 96375; 99285; J1170; J1956; J2405

== ENCOUNTER 2020-08-26 16:00 | Emergency (ER) | payer OTHER, SELFPAY ==
[2020-08-26 16:09] VITALS: BP 183/99; PULSE 70; RESP 12; TEMP 35.6; O2SAT 98; BMI 31.9
--- NOTE | 2020-08-26 17:50 | PC.NURSE ---
patient came into the ED with a complaints of hip pain status post fall. She was getting home late day night and fell in her house. She hit her knee and hip. The knee pain has gone down to minimal but her hip and left buttocks is bothering her.
--- NOTE | 2020-08-26 17:51 | PC.NURSE ---
CMS in tact. No numbness, tingling, in the extremity. Leg is the same length, is not rotated, and she is able to bear weight on it.
--- NOTE | 2020-08-26 18:12 | ED_ITS ---
HPI - Extremity Injury (Lower) General Chief Complaint: Extremity Injury, Lower Stated Complaint: LEFT HIP INJURY Time Seen by Provider: 08/26/20 18:11 Source: patient Mode of arrival: Ambulatory History of Present Illness HPI Narrative: 49-year-old woman history of gastric bypass surgery and migraine present for almost 3 months presents with pain in her left side deep gluteus. She notes that 2 days ago she came home from work, late at night it was dark furniture had been moved and she walked into an end table significantly injuring her right knee. Her knee was so tender at the time she did not notice that she would also strained her low back however she did notice some minor pain on the left lumbar region the following day. Today she is having significant pain deep into the buttock area which she had initially seemed was hip pain. She has no actual hip pain with internal or external rotation and weakness into the leg at all. She describes no fevers, cough, chills. She does note that she has had an intractable headache the last number of months that has been somewhat associated with nagging daily low back pain with intermittent sciatica that radiates down the lateral aspect of the left hip. She is unable to take anti-inflammatories because of the gastric bypass and has found that more lacks a cam and Tylenol are not of help. She has not used any narcotics. Tramadol causes significant personality changes and she chooses to avoid it because it makes me incredibly bitchy Related Data Home Medications Medication Instructions Recorded Confirmed multivitamin [Multiple Vitamins] 2 tab PO QPM #0 03/25/17 ferrous sulfate 325 mg PO DAILY #0 08/04/17 buspirone 5 mg PO TID PRN 03/24/19 03/24/19 ergocalciferol (vitamin D2) 50,000 unit PO WEEKLY 03/24/19 04/25/19 estradiol 0.1 mg TOPICAL QWEEK 03/24/19 04/25/19 gabapentin 100 mg PO TID 03/24/19 04/25/19 oxycodone-acetaminophen 1 tab PO Q6H PRN 03/24/19 04/25/19 phentermine 18.75 - 37.5 mg PO QAM PRN 03/24/19 04/25/19 bupropion HCl 100 mg PO BID 10/15/19 10/15/19 Previous Rx's Medication Instructions Recorded ciprofloxacin HCl [Cipro] 500 mg PO Q12H #14 tab 07/29/19 oxycodone-acetaminophen 1 tab PO Q6H PRN 5 Days #14 tab 08/26/20 Allergies Allergy/AdvReac Type Severity Reaction Status Date / Time amoxicillin [AMOXICILLIN] Allergy Severe SWELLING Verified 08/26/20 16:14 FACE, THROAT & HIVES ALL OVER. Penicillins [PENICILLINS] Allergy Intermediate RASH/ITCHING, Verified 08/26/20 16:14 TROUBLE BREATHING. diphenhydramine Allergy Mild SWELLING. Verified 08/26/20 16:14 [DIPHENHYDRAMINE] latex [LATEX] Allergy Mild RASH Verified 08/26/20 16:14 magnesium citrate AdvReac Unknown VOMITING Verified 08/26/20 16:14 [MAGNESIUM CITRATE] Review of Systems Review of Systems Narrative: Denies palpitations, chest pain No abdominal pain, no change to bowel or bladder habits No acute paresthesias No skin rashes Patient History Medical History (Updated 08/26/20 @ 19:05 by Alie Morel MD) Fibromyalgia Surgical History (Updated 08/26/20 @ 19:05 by Alie Morel MD) H/O gastric bypass Social History Smoking Status: Current every day smoker Smoking Status: Current every day smoker alcohol intake frequency: 0-2 drinks per day Substance Use Type: does not use Exam Narrative Exam Narrative: General: Alert appropriate in no acute distress Respiratory: Able to speak in full sentences, no obvious respiratory distress Skin: No obvious rashes, warm and dry Neurologic: Grossly intact no obvious asymmetries or abnormalities Psych: appropriate insight and affect, cooperative Spine: No midline lower back tenderness but significant left paraspinous spasm from L2 to the sacrum. Pressing into the paraspinous spasm completely recreates the radicular pain into her buttock. Initial Vital Signs Initial Vital Signs: Vital Signs Temperature 96.0 F L 08/26/20 16:09 Pulse Rate 70 08/26/20 16:09 Respiratory Rate 12 08/26/20 16:09 Blood Pressure 183/99 H 08/26/20 16:09 Pulse Oximetry 98 08/26/20 16:09 Course Orders Ordered: Discontinued Medications Ketorolac Tromethamine (Ketorolac 60 Mg/2 Ml Vial) 30 mg IM NOW ONE Stop: 08/26/20 18:24 Last Admin: 08/26/20 18:36 Dose: 30 mg Documented by: Oxycodone/Acetaminophen (Oxycodone/Acetaminophen 5/325 Tablet) 1 tab PO NOW ONE Stop: 08/26/20 18:24 Last Admin: 08/26/20 18:36 Dose: 1 tab Documented by: Vital Signs Vital signs: Vital Signs - 8 hr 08/26/20 16:09 08/26/20 18:56 Temperature 96.0 F L Pulse Rate 70 67 Respiratory Rate 12 12 Blood Pressure 183/99 H 162/94 H Pulse Oximetry 98 99 MDM - Extremity Injury (Lower) Medical Records Attestation: I reviewed the patient's medical records. [facility] Narrative Medical decision making narrative: 49-year-old woman with injury to the right knee 48 hours ago that has caused pain into the low back with left-sided lumbar spasm and sciatica. In evaluating pelvic ring she definitely has her left side significantly elevated in comparison to the right. I suspect that this minor malalignment is also contributing to the headache she has been experiencing. A prescription 1st physical therapy was given to help with the low back pain. She is given Toradol and a single Percocet in the emergency department. Because she can not use nonsteroidals of brief prescription of opiates is given along with instructions and discussion regarding addiction possibilities. She is safe for home discharge Discharge Plan Departure Patient Disposition: Home Clinical Impression: Acute low back pain Qualifiers: Back pain laterality: right Sciatica presence: with sciatica Sciatica laterality: sciatica of right side Qualified Code(s): M54.41 - Lumbago with sciatica, right side Instructions: DI for Low Back Pain Activity Restrictions/Additional Instructions: Thank you for coming in After hitting knee the way that you describe and slightly wrenching your back and now complaining of pain in the middle of your buttock, this is a fairly classic presentation of low back pain with sciatica. In the emergency room I have given you a shot of Toradol and a single dose of Percocet. I have given you a prescription of Percocet as well. They understand that you need to avoid nonsteroidals after gastric bypass. With your recent injury as well as the intermittent low back pain and your migraine for the last few months I suspect that a bit of manual therapy to get your pelvic basin spine straight and up will likely help relieve much of your pain. I have given you a prescription for physical therapy if you choose to pursue that option. I wish you the best Prescriptions: New oxycodone-acetaminophen 5-325 mg tablet 1 tab PO Q6H PRN (Reason: pain) 5 Days Qty: 14 RF: 0 No Action multivitamin [Multiple Vitamins] 1 EACH tablet 2 tab PO QPM Qty: 0 RF: 0 ferrous sulfate 325 mg (65 mg iron) Tablet 325 mg PO DAILY Qty: 0 RF: 0 bupropion HCl 100 mg tablet sustained-release 12 hr 100 mg PO BID RF: 0 ciprofloxacin HCl [Cipro] 500 mg tablet 500 mg PO Q12H Qty: 14 RF: 0 buspirone 5 mg tablet 5 mg PO TID PRN (Reason: Anxiety) RF: 0 phentermine 37.5 mg tablet 18.75 - 37.5 mg PO QAM PRN (Reason: weight loss) RF: 0 oxycodone-acetaminophen 5-325 mg tablet 1 tab PO Q6H PRN (Reason: pain) RF: 0 gabapentin 100 mg capsule 100 mg PO TID RF: 0 ergocalciferol (vitamin D2) 50,000 unit capsule 50,000 unit PO WEEKLY RF: 0 estradiol 0.1 mg/24 hr patch weekly 0.1 mg topical QWEEK RF: 0 Referrals: Julian Madera MD [Primary Care Provider] - Stand Alone Forms: Work Release Note
[2020-08-26] MEDS: KETOROLAC 60 MG/2 ML VIAL 30 MG IM (18:36)
[2020-08-26] MEDS: OXYCODONE/ACETAMINOPHEN 5/325 TABLET 1 TAB PO (18:36)
[2020-08-26 18:56] VITALS: BP 162/94; PULSE 67; RESP 12; O2SAT 99
== END 2020-08-26 18:58 | disposition home or self-care (01) ==
PROVIDERS: Emergency Provider Emergency Medicine
DX: M54.41 Lumbago with sciatica, right side (principal); Z98.84 Bariatric surgery status
CPT/HCPCS: 96372; 99281; 99283; J1885

== ENCOUNTER 2022-04-06 08:06 | Emergency (ER) | payer OTHER, SELFPAY ==
[2022-04-06] VITALS (24 sets, daily range): BP systolic 173–232; BP diastolic 83–118; PULSE 67–92; RESP 16–40; TEMP 36.5; O2SAT 95–99; BMI 34.3
--- NOTE | 2022-04-06 08:24 | DI.RAD.S_ITS ---
PROCEDURE: XR CHEST 1V INDICATIONS: chest pain TECHNIQUE: One view of the chest was acquired. COMPARISON: [facility], [place], XR CHEST 1V, 07/29/2019, 15:03. [facility], [place], CHEST 1 VIEW, 03/25/2017, 14:51. FINDINGS: Surgical changes and devices: None. Lungs and pleura: Lungs are clear. No pleural effusions or pneumothorax. Mediastinum: Mediastinal contours appear normal. Heart size is normal. Bones and chest wall: No suspicious bony lesions. Overlying soft tissues appear unremarkable. IMPRESSION: No acute radiographic abnormality. Dictated by: Michele Galloway M.D. on 04/06/2022 at 9:10 Approved by: Michele Galloway M.D. on 04/06/2022 at 9:11
[2022-04-06 08:28] LABS: Add Manual Diff / Slide Review NO; Basophils Absolute Auto 100 /uL (0-100); Basophils Percent Auto 0.9 % (0-2); Eosinophils Absolute Auto 100 /uL (0-450); Eosinophils Percent Auto 0.8 % (2-4); Hematocrit 43.3 % (36-46); Hemoglobin 15.2 g/dL (12.0-16.0); Lymphocytes Absolute Auto 1800 /uL (1100-4500); Lymphocytes Percent Auto 21.4 % (25-40); Mean Corpuscular HGB Conc 35.2 % (30-36); Mean Corpuscular Hemoglobin 31.4 PG (26-34); Mean Corpuscular Volume 89.1 fL (80-100); Monocytes Absolute Auto 500 /uL (0-900); Monocytes Percent Auto 6.4 % (3-14); Neutrophils Absolute Auto 5800 /uL (1500-7000); Neutrophils Percent Auto 70.5 % (50-75); Platelet Count 254 X10^3/uL (150-400); Red Blood Cell Count 4.86 X10^6/uL (4.0-5.2); Red Cell Distribution Width 13.5 % (11.6-14.8); White Blood Cell Count 8.2 X10^3/uL (4.5-11.0)
--- NOTE | 2022-04-06 08:28 | ED_ITS ---
HPI - Chest Pain General Chief Complaint: Chest Pain Stated Complaint: thinks she is having a heart attack Time Seen by Provider: 04/06/22 08:27 Source: patient Mode of arrival: Wheelchair Limitations: no limitations History of Present Illness HPI narrative: Patient is a 51-year-old female history of hypertension although she has been noncompliant her blood pressure medications for the last 1 year. She says that she has had a migraine for about the last 1 year as well. She has jaw pain and it goes into her left scapula. She is noted to be quite hypertensive with a blood pressure of 225/118. She denies shortness of breath. She says over last 2 weeks she has had some blurry vision were she just can not read she says she has to blow it up on her phone. She has tried reader is a but it does not work. She has no numbness tingling or weakness. She has quite a severe headache. She apparently was a little and nauseous. She has been taking Tylenol without any relief for her headache. She states that her wing hurts. Related Data Home Medications Medication Instructions Recorded Confirmed multivitamin (Multiple Vitamins 2 tab PO QPM ##0 03/25/17 tablet) ferrous sulfate 325 mg (65 mg 325 mg PO DAILY ##0 08/04/17 iron) tablet buspirone 5 mg tablet 5 mg PO TID PRN Anxiety 03/24/19 03/24/19 ergocalciferol (vitamin D2) 1,250 50,000 unit PO WEEKLY 03/24/19 04/25/19 mcg (50,000 unit) capsule estradiol 0.1 mg/24 hr weekly 0.1 mg topical QWEEK 03/24/19 04/25/19 transdermal patch gabapentin 100 mg capsule 100 mg PO TID 03/24/19 04/25/19 oxycodone-acetaminophen 5 mg-325 1 tab PO Q6H PRN pain 03/24/19 04/25/19 mg tablet phentermine 37.5 mg tablet 18.75 - 37.5 mg PO QAM PRN weight 03/24/19 04/25/19 loss bupropion HCl 100 mg tablet,12 hr 100 mg PO BID 04/25/19 04/25/19 sustained-release Previous Rx's Medication Instructions Recorded ciprofloxacin HCl 500 mg tablet 500 mg PO Q12H #14 tabs 07/29/19 (Cipro) hydrochlorothiazide 25 mg tablet 25 mg PO DAILY #30 tabs 04/06/22 Allergies Allergy/AdvReac Type Severity Reaction Status Date / Time amoxicillin [AMOXICILLIN] Allergy Severe SWELLING Verified 04/06/22 08:27 FACE, THROAT & HIVES ALL OVER. Penicillins [PENICILLINS] Allergy Intermediate RASH/ITCHING, Verified 04/06/22 08:27 TROUBLE BREATHING. diphenhydramine Allergy Mild SWELLING. Verified 04/06/22 08:27 [DIPHENHYDRAMINE] latex [LATEX] Allergy Mild RASH Verified 04/06/22 08:27 magnesium citrate AdvReac Unknown VOMITING Verified 04/06/22 08:27 [MAGNESIUM CITRATE] Review of Systems Review of Systems Narrative: GENERAL: Denies chills, fatigue, malaise, fever, sweats, travel HEENT: Denies sinus pain, ear pain, sore throat, difficulty swallowing, neck pain RESPIRATORY: Denies dyspnea, cough, wheezing, hemoptysis, sputum. CARDIOVASCULAR: See HPI GASTROINTESTINAL: Denies nausea, vomiting, abdominal pain, diarrhea, constipation, melena. : Denies dysuria, frequency, incontinence, hematuria, urinary retention, flank pain. MUSCULOSKELETAL: Denies weakness, joint pain, or bony pain SKIN: No rash, no erythema, no pruritus NEUROLOGIC: + headache, see HPI PSYCHIATRIC: No concerning psychosocial issues. 12 point review of systems is negative except for those stated above and HPI Patient History Medical History Fibromyalgia Surgical History H/O gastric bypass Social History Smoking Status: Current every day smoker Smoking Status: Current every day smoker alcohol intake frequency: 0-2 drinks per day Substance Use Type: does not use Exam Initial Vital Signs Initial Vital Signs: Vital Signs Pulse Rate 80 04/06/22 08:21 Respiratory Rate 16 04/06/22 08:21 Pulse Oximetry 96 04/06/22 08:21 GENERAL: Alert pleasant 51-year-old female appears comfortable and in no acute distress. HEENT: Head atraumatic,EOMI, pupils reactive, face symmetric, moist mucous membranes CARDIOVASCULAR: Regular rate and rhythm without murmurs, rubs or gallops. RESPIRATORY: Breath sounds equal bilaterally, no wheezes rales or rhonchi. ABDOMEN: Soft, nontender. Normoactive bowel sounds all 4 quadrants. No gua rding or rebound. EXTREMITIES: Normal range of motion, no clubbing or edema. Neurovascularly intact NEUROLOGICAL: Alert and oriented x4.Normal gait and speech. Cranial nerves II through XII grossly intact. Good wuvqdl-mt-crkf, good safu-vl-vccs, strength equal bilaterally, no dysarthria or aphasia, sensation in tact to soft touch bilaterally, no visual changes, no facial droop SKIN: Warm, dry, no laceration, no petechiae, no rashes or lesions. Course Orders Ordered: Discontinued Medications Aspirin (Aspirin 81 Mg Chew Tab) 324 mg PO NOW ONE Stop: 04/06/22 08:45 Last Admin: 04/06/22 08:45 Dose: 324 mg Documented By: NEYDA Hydromorphone HCl (Hydromorphone 1 Mg Inj) 1 mg IV NOW ONE Stop: 04/06/22 11:49 Last Admin: 04/06/22 12:02 Dose: 1 mg Documented By: NR Ketorolac Tromethamine (Ketorolac 30 Mg/Ml Vial) 15 mg IV NOW ONE Stop: 04/06/22 10:14 Last Admin: 04/06/22 10:15 Dose: 15 mg Documented By: NR Labetalol HCl (Labetalol 20 Mg/4 Ml Syringe) 10 mg IV NOW ONE Stop: 04/06/22 09:34 Last Admin: 04/06/22 09:39 Dose: 10 mg Documented By: NR Morphine Sulfate (Morphine 2 Mg/Ml Inj) 2 mg IV NOW ONE Stop: 04/06/22 09:35 Last Admin: 04/06/22 09:41 Dose: 2 mg Documented By: NR Nitroglycerin (Nitroglycerin 0.4 Mg Sl Tab) 0.4 mg SL [id number] PRN PRN Reason: Chest Pain Last Admin: 04/06/22 08:48 Dose: 0.4 mg Documented By: NEYDA Ondansetron HCl (Ondansetron 4 Mg/2 Ml Inj) 4 mg IV NOW ONE Stop: 04/06/22 09:35 Last Admin: 04/06/22 09:41 Dose: 4 mg Documented By: NR Vital Signs Vital signs: Vital Signs - 8 hr 04/06/22 11:30 04/06/22 11:31 04/06/22 11:31 Pulse Rate 77 73 Respiratory Rate 37 H 40 H Blood Pressure 219/93 H Pulse Oximetry 97 04/06/22 12:00 04/06/22 12:00 Pulse Rate 74 Respiratory Rate 21 Blood Pressure 178/90 H Pulse Oximetry 95 MDM - Chest Pain Lab Data Result diagrams: 04/06/22 08:15 04/06/22 08:15 Labs: Lab Results 04/06/22 04/06/22 Range/Units 08:15 08:15 WBC 8.2 (4.5-11.0) X10^3/uL RBC 4.86 (4.0-5.2) X10^6/uL Hgb 15.2 (12.0-16.0) g/dL Hct 43.3 (36-46) % MCV 89.1 (80-100) fL MCH 31.4 (26-34) PG MCHC 35.2 (30-36) % RDW 13.5 (11.6-14.8) % Plt Count 254 (150-400) X10^3/uL Neut % (Auto) 70.5 (50-75) % Lymph % (Auto) 21.4 L (25-40) % [place] % (Auto) 6.4 (3-14) % Eos % (Auto) 0.8 L (2-4) % Baso % (Auto) 0.9 (0-2) % Neut # (Auto) 5800 (5981-3439) /uL Lymph # (Auto) 1800 (8058-2038) /uL [place] # (Auto) 500 (0-900) /uL Eos # (Auto) 100 (0-450) /uL Baso # (Auto) 100 (0-100) /uL Sodium 141 (137-145) mmol/L Potassium 4.0 (3.4-5.1) mmol/L Chloride 106 (98-107) mmol/L Carbon Dioxide 25 (22-32) mmol/L BUN 10 (7-17) mg/dL Creatinine 0.68 (0.52-1.04) mg/dL Estimated GFR > 60 (>60) mL/min BUN/Creatinine Ratio 14.7 (6-22) Glucose 96 (70-100) mg/dL Calcium 9.3 (8.4-10.2) mg/dL Magnesium 2.1 (1.6-2.3) mg/dL Total Bilirubin 0.4 (0.2-1.3) mg/dL AST 31 (14-36) IU/L ALT 32 (<35) IU/L Alkaline Phosphatase 77 (38-126) U/L Total Creatine Kinase 40 (30-135) U/L CK-MB (CK-2) TNP CK-MB (CK-2) Rel Index TNP Troponin I < 0.012 (0.01-0.034) ng/mL Total Protein 7.8 (6.3-8.2) g/dL Albumin 4.5 (3.5-5.0) g/dL Globulin 3.3 (1.7-4.1) g/dL Albumin/Globulin Ratio 1.4 (1.0-2.8) Lipase 213 (23-300) U/L Imaging Data CTA - brain/neck: Radiologist's Impression: Signed Patient: Imani Almanza MR#: [id number] : 1970 Acct:[id number] Age/Sex: 51 / F Date of Service: 04/06/22 Loc: ED Accession Number: [id number] ?? Procedure: CT angio head and neck Ordering Provider: Kalie Simon D.O. PROCEDURE:? CT ANGIO HEAD AND NECK ? INDICATIONS:? HTN with headache and pain in back ? TECHNIQUE:? Pre-contrast 4.5 mm thick sections acquired from the foramen magnum to the vertex.? After the administration of intravenous contrast, 1 mm thick sections acquired from the aortic arch through the [place] of [place].? Post-contrast 4.5 mm thick sections then re- acquired from the foramen magnum to the vertex.? 3-dimensional pyobydr-cqugzkkzg-gsodecuwal (MIP) and/or volume rendering reformats were acquired of the central intracranial vasculature and neck separately. For radiation dose reduction, the following was used:? automated exposure control, adjustment of mA and/or kV according to patient size.? ? COMPARISON:? None. ? FINDINGS:? Image quality:? Excellent.? ? BRAIN:? CSF spaces:? Ventricles are normal in size and shape.? Basal cisterns are patent.? No extra-axial fluid collections.? ? Brain:? No midline shift.? No intracranial bleeds or masses.? Bhagat-white matter interface appears intact.? ? Skull and face:? Calvarium and facial bones appear intact, without suspicious lesions.? Orbits appear normal.? ? Sinuses:? Sinuses and mastoids are clear.? ? HEAD CT ANGIOGRAPHY:? Anterior circulation:? Intracranial internal carotid arteries are normal in size and flow.? The flow within the paired anterior cerebral arteries is normal and symmetric.? The flow within the middle cerebral arteries is normal and symmetric.? The anterior communicating artery is seen.? No aneurysms are seen.? ? Posterior circulation:? Visualized portions of the vertebral arteries demonstrate normal caliber, and join to form a normal appearing basilar artery.? Flow within the posterior cerebral arteries is normal and symmetric.? No aneurysms are seen.? ? NECK CT ANGIOGRAPHY:? Carotid system:? The great vessels demonstrate a conventional anatomy as they arise from the aortic arch.? The origins of the common carotid arteries appear patent.? The common carotid arteries demonstrate normal caliber and courses.? The bifurcation regions are both widely patent.? The internal carotid arteries demonstrate normal calibers and courses.? ? Posterior circulation:? The origins of the vertebral arteries both appear widely patent.? The more superior extracranial portions of both vertebral arteries also demonstrate normal courses and calibers.? They join to form a normal appearing basilar artery.? ? Soft tissues:? Visualized neck soft tissues demonstrate no suspicious abnormalities.? ? Bones:? No suspicious bony lesions.? Visualized cervical spine appears normally aligned.? IMPRESSION:? ? 1. No acute intracranial findings. ? 2. No stenosis, occlusion, or aneurysm.? ? Any quantitative measurements of stenosis were performed using NASCET criteria.? ? ? Dictated by: Nelli Bobby M.D. on 04/06/2022 at 9:48 ? ? CT scan - chest: Radiologist's Impression: CT Scan Report Signed Patient: Imani Almanza MR#: [id number] : 1970 Acct:[id number] Age/Sex: 51 / F Date of Service: 04/06/22 Loc: ED Accession Number: [id number] ?? Procedure: CT angio chest abdomen pelvis Ordering Provider: Kalie Simon D.O. PROCEDURE:? CT ANGIO CHEST ABDOMEN PELVIS ? INDICATIONS:? HTN with pain in back ? TECHNIQUE:? Precontrast 5 mm thick sections acquired from the lung apices to the iliac crests.? After the administration of intravenous contrast, 2.5 mm thick sections again acquired from the lung apices to the iliac crests.? Maximum intensity projection (MIP) oblique sagittal and coronal reformats were then acquired.? For radiation dose reduction, the following was used:? automated exposure control.? ? COMPARISON:? None. ? FINDINGS: ? ? Image quality:? Excellent.? ? CHEST: Lungs and pleura:? No acute air space opacities.? No pleural effusions or pneumothorax.? Central and peripheral airways are patent and normal in caliber.? ? Mediastinum:? Heart size is normal.? No pericardial effusion.? No mediastinal adenopathy by size criteria.? Thoracic aorta and central pulmonary arteries are normal in size.? Gastric surgery is noted, probably a Avni-en-Y procedure.? No hiatal hernia. ? Chest wall:? No axillary or supraclavicular adenopathy by size criteria.? Thyroid gland is normal .? ? ABDOMEN: Solid organs:? Liver: The liver has no mass or intrahepatic biliary ductal dilatation. The portal vein and hepatic veins are patent. Biliary:? Status post cholecystectomy Pancreas: The pancreas has no mass or ductal dilatation. There is no surrounding inflammation. Spleen: Normal size. There are no masses. Adrenals: No hypertrophy or nodules. Kidneys: No obstructive calculus or hydronephrosis.? No solid mass. No cystic mass. ? Bowel:? Postoperative changes at the gastroesophageal junction and stomach consistent with Avni-en-Y gastrojejunostomy.? The small bowel has a normal caliber and appearance. The terminal ileum is normal. The large bowel has a normal caliber and appearance.? The appendix is normal. No free fluid or air.? ? Nodes and vessels:? No retroperitoneal or mesenteric adenopathy by size criteria.? Aorta and inferior vena cava are normal in size.? The aorta has atherosclerotic calcifications. ?The mesenteric and renal branches of the abdominal aorta are patent. ? Abdominal wall:? No abdominal wall mass or hernia. ? PELVIS:? Genitourinary:? The bladder has no wall thickening or mass. No bladder calcifications. ? BONES:? No suspicious bony lesions.? No vertebral body compression fractures.? ? IMPRESSION: 1. No acute abnormality of the chest, abdomen, or pelvis. 2. No aneurysm or dissection of the thoracic or abdominal aorta.? ? ? Dictated by: Orlando Arroyo M.D. on 04/06/2022 at 9:29 ?? ECG Data Interpretation: Normal sinus rhythm rate 80 p.r. interval 154 QRS [address] changes no T-wave inversion Q-waves noted in lead 3 similar to previous EKG MDM Narrative Medical decision making narrative: Patient has been out of her blood pressure medication for about 1 year her migraines have started since then is she says finally it has been a little bit worse over last few days she is noted to be quite hypertensive. She is having some left shoulder blade pain as well. Full CT angio head and neck and chest abdomen pelvis do not show any abnormality. She is given blood pressure medication and pain medication here in the ED seems to help both blood pressure and pain. She does not remember what previous blood pressure medication she was on. I discussed with her her risk of stroke and heart attack. I urged her to check her blood pressure at return to the as needed. Discharge Plan Departure Patient Disposition: Home Clinical Impression: Hypertension, Headache Instructions: High Blood Pressure Activity Restrictions/Additional Instructions: *You have been diagnosed with high blood pressure *What to do: Her headache is likely worsened from her uncontrolled high blood pressure please start taking her blood pressure medication *Continue to take medications as directed Hydrochlorothiazide 25 mg once a day in the morning *Follow up with your primary care provider in 2-3 days or call [phone] *Return to ER if you should have worsening headache chest pain visual changes numbness tingling or weakness or any new, worsening or concerning symptoms Prescriptions: New hydrochlorothiazide 25 mg tablet 25 mg PO DAILY Qty: 30 0RF No Action multivitamin [Multiple Vitamins] 1 EACH tablet 2 tab PO QPM Qty: 0 ferrous sulfate 325 mg (65 mg iron) Tablet 325 mg PO DAILY Qty: 0 bupropion HCl 100 mg tablet sustained-release 12 hr 100 mg PO BID Label Comments: TK 1 T PO BID. ciprofloxacin HCl [Cipro] 500 mg tablet 500 mg PO Q12H Qty: 14 0RF buspirone 5 mg tablet 5 mg PO TID PRN (Reason: Anxiety) Label Comments: TK 1 T PO TID FOR ANXIETY phentermine 37.5 mg tablet 18.75 - 37.5 mg PO QAM PRN (Reason: weight loss) Label Comments: take 1/2-1 tablet every morning if needed oxycodone-acetaminophen 5-325 mg tablet 1 tab PO Q6H PRN (Reason: pain) gabapentin 100 mg capsule 100 mg PO TID ergocalciferol (vitamin D2) 50,000 unit capsule 50,000 unit PO WEEKLY estradiol 0.1 mg/24 hr patch weekly 0.1 mg topical QWEEK Label Comments: APPLY 1 PATCH TRANSDERMAL ONE TIME A WEEK Referrals: ProviderTai [Primary Care Provider] - Visit Report Forms: Patient Portal/API
[2022-04-06 08:41] LABS: Alanine Aminotransferase 32 IU/L (<35); Albumin 4.5 g/dL (3.5-5.0); Albumin Globulin Ratio 1.4 (1.0-2.8); Alkaline Phosphatase 77 U/L (38-126); Aspartate Aminotransferase 31 IU/L (14-36); BUN Creatinine Ratio 14.7 (6-22); Bilirubin Total 0.4 mg/dL (0.2-1.3); Blood Urea Nitrogen 10 mg/dL (7-17); Calcium 9.3 mg/dL (8.4-10.2); Carbon Dioxide 25 mmol/L (22-32); Chloride 106 mmol/L (98-107); Creatine Kinase 40 U/L (30-135); Estimated Glomerular Filt Rate > 60 mL/min (>60); Globulin 3.3 g/dL (1.7-4.1); Glucose 96 mg/dL (70-100); HEMOLYSIS < 15 (0-50); Lipase 213 U/L (23-300); Magnesium 2.1 mg/dL (1.6-2.3); Sodium 141 mmol/L (137-145); Total Protein 7.8 g/dL (6.3-8.2)
[2022-04-06] MEDS: ASPIRIN 81 MG CHEW TAB 324 MG PO (08:45)
[2022-04-06] MEDS: NITROGLYCERIN 0.4 MG SL TAB SL (08:48)
--- NOTE | 2022-04-06 08:51 | DI.CT.S_ITS ---
PROCEDURE: CT ANGIO HEAD AND NECK INDICATIONS: HTN with headache and pain in back TECHNIQUE: Pre-contrast 4.5 mm thick sections acquired from the foramen magnum to the vertex. After the administration of intravenous contrast, 1 mm thick sections acquired from the aortic arch through the [place] of [place]. Post-contrast 4.5 mm thick sections then re-acquired from the foramen magnum to the vertex. 3-dimensional gqxzfwy-gaxdybzjx-ulmnehesnn (MIP) and/or volume rendering reformats were acquired of the central intracranial vasculature and neck separately. For radiation dose reduction, the following was used: automated exposure control, adjustment of mA and/or kV according to patient size. COMPARISON: None. FINDINGS: Image quality: Excellent. BRAIN: CSF spaces: Ventricles are normal in size and shape. Basal cisterns are patent. No extra-axial fluid collections. Brain: No midline shift. No intracranial bleeds or masses. Bhagat-white matter interface appears intact. Skull and face: Calvarium and facial bones appear intact, without suspicious lesions. Orbits appear normal. Sinuses: Sinuses and mastoids are clear. HEAD CT ANGIOGRAPHY: Anterior circulation: Intracranial internal carotid arteries are normal in size and flow. The flow within the paired anterior cerebral arteries is normal and symmetric. The flow within the middle cerebral arteries is normal and symmetric. The anterior communicating artery is seen. No aneurysms are seen. Posterior circulation: Visualized portions of the vertebral arteries demonstrate normal caliber, and join to form a normal appearing basilar artery. Flow within the posterior cerebral arteries is normal and symmetric. No aneurysms are seen. NECK CT ANGIOGRAPHY: Carotid system: The great vessels demonstrate a conventional anatomy as they arise from the aortic arch. The origins of the common carotid arteries appear patent. The common carotid arteries demonstrate normal caliber and courses. The bifurcation regions are both widely patent. The internal carotid arteries demonstrate normal calibers and courses. Posterior circulation: The origins of the vertebral arteries both appear widely patent. The more superior extracranial portions of both vertebral arteries also demonstrate normal courses and calibers. They join to form a normal appearing basilar artery. Soft tissues: Visualized neck soft tissues demonstrate no suspicious abnormalities. Bones: No suspicious bony lesions. Visualized cervical spine appears normally aligned. IMPRESSION: 1. No acute intracranial findings. 2. No stenosis, occlusion, or aneurysm. Any quantitative measurements of stenosis were performed using NASCET criteria. Dictated by: Nelli Bobby M.D. on 04/06/2022 at 9:48 Approved by: Nelli Bobby M.D. on 04/06/2022 at 9:54
--- NOTE | 2022-04-06 08:51 | DI.CT.S_ITS ---
PROCEDURE: CT ANGIO CHEST ABDOMEN PELVIS INDICATIONS: HTN with pain in back TECHNIQUE: Precontrast 5 mm thick sections acquired from the lung apices to the iliac crests. After the administration of intravenous contrast, 2.5 mm thick sections again acquired from the lung apices to the iliac crests. Maximum intensity projection (MIP) oblique sagittal and coronal reformats were then acquired. For radiation dose reduction, the following was used: automated exposure control. COMPARISON: None. FINDINGS: Image quality: Excellent. CHEST: Lungs and pleura: No acute air space opacities. No pleural effusions or pneumothorax. Central and peripheral airways are patent and normal in caliber. Mediastinum: Heart size is normal. No pericardial effusion. No mediastinal adenopathy by size criteria. Thoracic aorta and central pulmonary arteries are normal in size. Gastric surgery is noted, probably a Avni-en-Y procedure. No hiatal hernia. Chest wall: No axillary or supraclavicular adenopathy by size criteria. Thyroid gland is normal . ABDOMEN: Solid organs: Liver: The liver has no mass or intrahepatic biliary ductal dilatation. The portal vein and hepatic veins are patent. Biliary: Status post cholecystectomy Pancreas: The pancreas has no mass or ductal dilatation. There is no surrounding inflammation. Spleen: Normal size. There are no masses. Adrenals: No hypertrophy or nodules. Kidneys: No obstructive calculus or hydronephrosis. No solid mass. No cystic mass. Bowel: Postoperative changes at the gastroesophageal junction and stomach consistent with Avni-en-Y gastrojejunostomy. The small bowel has a normal caliber and appearance. The terminal ileum is normal. The large bowel has a normal caliber and appearance. The appendix is normal. No free fluid or air. Nodes and vessels: No retroperitoneal or mesenteric adenopathy by size criteria. Aorta and inferior vena cava are normal in size. The aorta has atherosclerotic calcifications. The mesenteric and renal branches of the abdominal aorta are patent. Abdominal wall: No abdominal wall mass or hernia. PELVIS: Genitourinary: The bladder has no wall thickening or mass. No bladder calcifications. BONES: No suspicious bony lesions. No vertebral body compression fractures. IMPRESSION: 1. No acute abnormality of the chest, abdomen, or pelvis. 2. No aneurysm or dissection of the thoracic or abdominal aorta. Dictated by: Orlando Arroyo M.D. on 04/06/2022 at 9:29 Approved by: Orlando Arroyo M.D. on 04/06/2022 at 9:38
[2022-04-06 08:53] LABS: Troponin I < 0.012 ng/mL (0.01-0.034)
--- NOTE | 2022-04-06 09:31 | PC.NURSE ---
pt reports no change in pain since taking the nitro SL, she states he pain is now worse than before.
[2022-04-06] MEDS: LABETALOL 20 MG/4 ML SYRINGE 10 MG IV (09:39)
[2022-04-06] MEDS: ONDANSETRON 4 MG/2 ML INJ IV (09:41)
[2022-04-06] MEDS: MORPHINE 2 MG/ML INJ IV (09:41)
--- NOTE | 2022-04-06 10:10 | PC.NURSE ---
pt pain not any different after labetolol and morphine. spoke with MD about results
[2022-04-06] MEDS: KETOROLAC 30 MG/ML VIAL 15 MG IV (10:15)
--- NOTE | 2022-04-06 11:40 | PC.NURSE ---
pt states she has had this headache for a long time, at home she takes a lot of tylenol and sleeps to help with pain. education on max dose of tylenol given. pt states her current pain is 10/10, feels like an ice pick in my right eye going back over by head to my neck. pt is sitting up in chair at bedside on telephone. pt is asking what the plan is, she is worried about staying her all day due to her ride (her daughter) needing to get home to her 2 year old. daughter is currently out getting food.
[2022-04-06] MEDS: HYDROMORPHONE 1 MG INJ IV (12:02)
== END 2022-04-06 12:25 | disposition home or self-care (01) ==
PROVIDERS: Emergency Provider Emergency Medicine
DX: I10 Essential (primary) hypertension (principal); R51.9 Headache, unspecified; R07.9 Chest pain, unspecified
CPT/HCPCS: 36415; 70496; 70498; 71045; 71275; 74174; 80053; 82550; 83690; 83735; 84484; 85025; 93005; 96374; 96375; 99284; J1170; J1885; J2270; J2405; Q9967

== ENCOUNTER → 2022-07-02 13:09 | Outpatient (CLI) | payer OTHER, SELFPAY ==
[2022-07-02 14:57] LABS: Add Manual Diff / Slide Review NO; Basophils Absolute Auto 0 /uL (0-100); Basophils Percent Auto 0.4 % (0-2); Eosinophils Absolute Auto 100 /uL (0-450); Eosinophils Percent Auto 1.1 % (2-4); Hematocrit 42.5 % (36-46); Hemoglobin 14.2 g/dL (12.0-16.0); Lymphocytes Absolute Auto 1600 /uL (1100-4500); Lymphocytes Percent Auto 24.4 % (25-40); Mean Corpuscular HGB Conc 33.5 % (30-36); Mean Corpuscular Hemoglobin 30.3 PG (26-34); Mean Corpuscular Volume 90.6 fL (80-100); Monocytes Absolute Auto 500 /uL (0-900); Monocytes Percent Auto 7.2 % (3-14); Neutrophils Absolute Auto 4400 /uL (1500-7000); Neutrophils Percent Auto 66.9 % (50-75); Platelet Count 215 X10^3/uL (150-400); Red Blood Cell Count 4.69 X10^6/uL (4.0-5.2); Red Cell Distribution Width 14.4 % (11.6-14.8); White Blood Cell Count 6.5 X10^3/uL (4.5-11.0)
[2022-07-02 15:01] LABS: Alanine Aminotransferase 34 IU/L (<35); Albumin 4.1 g/dL (3.5-5.0); Albumin Globulin Ratio 1.5 (1.0-2.8); Alkaline Phosphatase 89 U/L (38-126); Aspartate Aminotransferase 29 IU/L (14-36); BUN Creatinine Ratio 24.1 (6-22); Bilirubin Total 0.7 mg/dL (0.2-1.3); Blood Urea Nitrogen 19 mg/dL (7-17); Calcium 9.6 mg/dL (8.4-10.2); Carbon Dioxide 31 mmol/L (22-32); Chloride 99 mmol/L (98-107); Estimated Glomerular Filt Rate > 60 mL/min (>60); Globulin 2.8 g/dL (1.7-4.1); Glucose 91 mg/dL (70-100); HEMOLYSIS < 15 (0-50); Potassium 4.7 mmol/L (3.4-5.1); Sodium 138 mmol/L (137-145); Total Protein 6.9 g/dL (6.3-8.2)
[2022-07-02 15:29] LABS: TSH w/ Reflex to FT4 0.96 uIU/mL (0.47-4.68)
== END ==
PROVIDERS: PCP Family Medicine; Referring Provider Family Medicine; Visit Provider Family Medicine
DX: G45.9 Transient cerebral ischemic attack, unspecified (principal); Z87.898 Personal history of other specified conditions
CPT/HCPCS: 36415; 80053; 83036; 84443; 85025

== ENCOUNTER 2022-08-14 18:16 | Observation (INO) | payer OTHER, SELFPAY ==
[2022-08-14] VITALS (35 sets, daily range): BP systolic 126–218; BP diastolic 56–100; PULSE 65–94; RESP 14–35; TEMP 36.4; O2SAT 93–100; BMI 40.1
--- NOTE | 2022-08-14 18:24 | DI.RAD.S_ITS ---
PROCEDURE: XR CHEST 1V INDICATIONS: chest pain TECHNIQUE: One view of the chest was acquired. COMPARISON: [facility], CR, XR CHEST 1V, 04/06/2022, 8:25. [facility], CR, XR CHEST 1V, 07/29/2019, 15:03. [facility], CT, CT ANGIO CHEST ABDOMEN PELVIS, 04/06/2022, 9:01. FINDINGS: Surgical changes and devices: Left upper quadrant postoperative change is partially seen. Lungs and pleura: Lungs are clear. No pleural effusions or pneumothorax. Mediastinum: Mediastinal contours appear normal. Heart size is normal. Bones and chest wall: No suspicious bony lesions. Overlying soft tissues appear unremarkable. IMPRESSION: No acute cardiopulmonary process is seen. Dictated by: Td Dumont M.D. on 08/14/2022 at 17:59 Approved by: Td Dumont M.D. on 08/14/2022 at 18:00
--- NOTE | 2022-08-14 18:29 | ED.GENADULT ---
HPI - General Adult General Chief complaint: Hypertension Stated complaint: Nausea and HTN Time Seen by Provider: 08/14/22 18:29 Source: patient and EMS Mode of arrival: EMS History of Present Illness HPI narrative: 51-year-old woman with a history of severe and poorly controlled hypertension presents with significantly elevated blood pressure. She was having a tele video appointment with her primary care doctor to discuss her hypertension and during that consultation she checked her home blood pressure and found it to be in the in the 220/120 range. She did have a headache and was instructed come to the emergency department. She would similar complaints in March of last year with headache and blurry vision and notes that she had not been taking her blood pressure medication. Since that time she has been more consistent in his currently on losartan 100 mg with hydrochlorothiazide 25 mg and carvedilol today was increased from 6.25 mg b.i.d. up to 12.5 mg b.i.d.. On arrival in the emergency department she is complaining of severe headache, slightly blurry vision and shortly after arrival with blood pressure appreciated 240/120 noted a sharp pain through the center of her chest radiating through to her back. She reports chronic headaches, occasional chest pain, no palpitations no lower extremity edema, no nausea, vomiting, diarrhea. Has not been having fevers or chills recently. She has been checking her blood pressures recently and has photographs of the device reading and blood pressures are consistently in the 242-260 systolic range and 110-140 diastolic range. Related Data Home Medications Medication Instructions Recorded Confirmed acetaminophen 325 mg tablet 325 mg PO QID PRN Pain (Scale 08/15/22 08/15/22 Score 1-3) Previous Rx's Medication Instructions Recorded carvedilol 6.25 mg tablet 6.25 mg PO BID #180 tabs 06/11/22 losartan 100 1 tab PO DAILY #30 tabs 07/01/22 mg-hydrochlorothiazide 25 mg tablet estradiol 0.1 mg/24 hr weekly 0.1 mg topical QWEEK #4 ea 07/02/22 transdermal patch carvedilol 12.5 mg tablet 12.5 mg PO BID #60 tabs 08/14/22 Allergies Allergy/AdvReac Type Severity Reaction Status Date / Time amoxicillin [AMOXICILLIN] Allergy Severe SWELLING Verified 08/14/22 18:24 FACE, THROAT & HIVES ALL OVER. Penicillins [PENICILLINS] Allergy Severe RASH/ITCHING, Verified 08/15/22 09:39 TROUBLE BREATHING. diphenhydramine Allergy Mild SWELLING. Verified 08/14/22 18:24 [DIPHENHYDRAMINE] latex [LATEX] Allergy Mild RASH Verified 08/14/22 18:24 magnesium citrate AdvReac Unknown VOMITING Verified 08/14/22 18:24 [MAGNESIUM CITRATE] Review of Systems Review of Systems Narrative: Remainder of complete review of systems is otherwise unremarkable except for that included in the HPI. Patient History Medical History Fibromyalgia History of prediabetes Hypertension Surgical History H/O gastric bypass Social History household members: significant other and children Smoking Status: Current every day smoker alcohol intake: current Smoking Status: Current every day smoker alcohol intake frequency: 0-2 drinks per day Substance Use Type: does not use Exam Initial Vital Signs Initial Vital Signs: Vital Signs Temperature 97.6 F 08/14/22 18:20 Pulse Rate 67 08/14/22 18:20 Respiratory Rate 16 08/14/22 18:20 Blood Pressure 202/89 H 08/14/22 18:20 Pulse Oximetry 99 08/14/22 18:20 Oxygen Delivery Method 08/14/22 18:20 General: Healthy appearing, in mild distress secondary to headache and chest pain. Able to give a complete and coherent history. Well-nourished well-developed HEENT: Moist mucous membranes, normal sclera with reactive pupils, Neck: No JVD, supple Respiratory: Lungs are clear to auscultation, no wheezing no rales no rhonchi. Full and symmetrical air movement Cardiac: Regular rate and rhythm no murmurs no bruits Abdomen: Soft, nontender, good bowel tones, no flank pain Skin: Warm and dry, no rashes Neurologic: Grossly neurologically intact with no obvious asymmetries or abnormalities Extremities: No trauma, well perfused Psych: Cooperative, appropriate insight and affect Course Orders Ordered: Acetaminophen (Acetaminophen 325 Mg Tablet) 650 mg PO Q6H PRN PRN Reason: Fever/Mild Pain (1-3) Last Admin: 08/15/22 13:40 Dose: 650 mg Documented By: CLL Atorvastatin Calcium (Atorvastatin 20 Mg Tablet) 40 mg PO BEDTIME [facility] Last Admin: 08/15/22 20:54 Dose: 40 mg Documented By: Carvedilol (Carvedilol 12.5 Mg Tablet) 12.5 mg PO BID [facility] Last Admin: 08/15/22 20:54 Dose: 12.5 mg Documented By: Admin: 08/15/22 08:36 Dose: 12.5 mg Documented By: LAURENT Enoxaparin Sodium (Enoxaparin 40 Mg/0.4 Ml Syringe) 40 mg SUBCUT BID [facility] Last Admin: 08/15/22 20:54 Dose: 40 mg Documented By: Hydrochlorothiazide (Hydrochlorothiazide 25 Mg Tablet) 25 mg PO DAILY [facility] Last Admin: 08/15/22 08:36 Dose: 25 mg Documented By: LAURENT Hydroxyzine Pamoate (Hydroxyzine Pamoate 25 Mg Capsule) 25 mg PO Q6HR PRN PRN Reason: Nausea Losartan Potassium (Losartan 50 Mg Tablet) 100 mg PO DAILY [facility] Last Admin: 08/15/22 08:35 Dose: 100 mg Documented By: LAURENT Morphine Sulfate (Morphine 2 Mg/Ml Inj) 2 mg IV Q4HR PRN PRN Reason: Pain, Severe (7-10) Last Admin: 08/15/22 01:13 Dose: 2 mg Documented By: BALJEET Naloxone HCl (Naloxone 0.4 Mg/Ml Vial) 0.2 mg IV Q2MIN PRN PRN Reason: Opiate Reversal Nitroglycerin (Nitroglycerin 0.4 Mg Sl Tab) 0.4 mg SL [id number] PRN PRN Reason: Chest Pain Ondansetron HCl (Ondansetron 4 Mg/2 Ml Inj) 4 mg IV Q6HR PRN PRN Reason: Nausea And Vomiting Last Admin: 08/15/22 01:43 Dose: 4 mg Documented By: BALJEET Discontinued Medications Acetaminophen (Acetaminophen 325 Mg Tablet) 975 mg PO NOW ONE Stop: 08/14/22 18:31 Last Admin: 08/14/22 18:43 Dose: 975 mg Documented By: LAURENT(2) Amlodipine Besylate (Amlodipine 5 Mg Tablet) 5 mg PO NOW ONE Stop: 08/14/22 22:04 Last Admin: 08/14/22 22:05 Dose: 5 mg Documented By: BALJEET Enoxaparin Sodium (Enoxaparin 40 Mg/0.4 Ml Syringe) 40 mg SUBCUT DAILY [facility] Last Admin: 08/15/22 08:35 Dose: 40 mg Documented By: LAURENT Hydromorphone HCl (Hydromorphone 0.5 Mg Inj) 0.5 mg IV Q15MIN PRN PRN Reason: Pain, Last Admin: 08/14/22 21:26 Dose: 0.5 mg Documented By: GC Nicardipine HCl 25 mg/ Sodium (Chloride) 250 mls @ 50 mls/hr IV TITRATE ANISHA; Protocol Last Titration: 08/15/22 10:53 Dose: 0 mg/hr, 0 mls/hr Documented By: Titration: 08/15/22 10:47 Dose: 0 mg/hr, 0 mls/hr Documented By: Titration: 08/15/22 08:40 Dose: 2.5 mg/hr, 25 mls/hr Documented By: Admin: 08/15/22 06:07 Dose: 5 mg/hr, 50 mls/hr Documented By: Titration: 08/15/22 06:07 Dose: 0 mg/hr, 0 mls/hr Documented By: Admin: 08/15/22 01:11 Dose: 5 mg/hr, 50 mls/hr Documented By: Titration: 08/15/22 01:10 Dose: 0 mg/hr, 0 mls/hr Documented By: Admin: 08/14/22 19:09 Dose: 5 mg/hr, 50 mls/hr Documented By: BI Losartan Potassium (Losartan 50 Mg Tablet) 50 mg PO NOW ONE Stop: 08/14/22 18:31 Last Admin: 08/14/22 18:43 Dose: 50 mg Documented By: LAURENT(2) Ondansetron HCl (Ondansetron 4 Mg/2 Ml Inj) 4 mg IV NOW ONE Stop: 08/14/22 18:31 Last Admin: 08/14/22 18:43 Dose: 4 mg Documented By: LAURENT(2) Potassium Chloride (Potassium Chloride 20 Meq Tab) 40 meq PO NOW ONE Stop: 08/15/22 12:20 Last Admin: 08/15/22 13:38 Dose: 40 meq Documented By: CLL Vital Signs Vital signs: Vital Signs - 8 hr 08/14/22 18:20 08/14/22 18:43 02/03/23 18:38 Temperature 97.6 F Pulse Rate 67 65 Respiratory Rate 16 31 H Blood Pressure 202/89 H 202/89 H Pulse Oximetry 99 99 Oxygen Delivery Method Room Air 08/14/22 18:49 08/14/22 18:49 08/14/22 19:00 Temperature Pulse Rate 65 Respiratory Rate 35 H Blood Pressure 218/93 H 208/93 H Pulse Oximetry 100 Oxygen Delivery Method 08/14/22 19:00 08/14/22 19:09 08/14/22 19:09 Temperature Pulse Rate 68 68 Respiratory Rate 30 H 23 Blood Pressure 202/79 H Pulse Oximetry 98 98 Oxygen Delivery Method 08/14/22 19:30 08/14/22 19:35 08/14/22 19:35 Temperature Pulse Rate 71 65 Respiratory Rate 14 Blood Pressure 210/84 H Pulse Oximetry 99 Oxygen Delivery Method 08/14/22 19:40 08/14/22 19:40 08/14/22 19:50 Temperature Pulse Rate 72 75 Respiratory Rate 20 17 Blood Pressure 175/56 H Pulse Oximetry 96 96 Oxygen Delivery Method 08/14/22 19:50 08/14/22 20:00 08/14/22 20:00 Temperature Pulse Rate 78 Respiratory Rate 21 Blood Pressure 157/68 H 155/68 H Pulse Oximetry 95 Oxygen Delivery Method 08/14/22 20:10 08/14/22 20:10 08/14/22 20:20 Temperature Pulse Rate 77 Respiratory Rate 20 Blood Pressure 154/70 H 150/68 H Pulse Oximetry 96 Oxygen Delivery Method 08/14/22 20:20 Temperature Pulse Rate 77 Respiratory Rate 20 Blood Pressure Pulse Oximetry 96 Oxygen Delivery Method Medical Decision Making Lab Data 08/14/22 18:49 08/14/22 18:49 Labs: Lab Results 08/14/22 08/14/22 08/14/22 Range/Units 18:49 18:49 18:49 WBC 8.1 (4.5-11.0) X10^3/uL RBC 4.56 (4.0-5.2) X10^6/uL Hgb 14.0 (12.0-16.0) g/dL Hct 42.1 (36-46) % MCV 92.5 (80-100) fL MCH 30.8 (26-34) PG MCHC 33.3 (30-36) % RDW 14.2 (11.6-14.8) % Plt Count 229 (150-400) X10^3/uL Neut % (Auto) 69.9 (50-75) % Lymph % (Auto) 23.2 L (25-40) % [place] % (Auto) 5.4 (3-14) % Eos % (Auto) 0.7 L (2-4) % Baso % (Auto) 0.8 (0-2) % Neut # (Auto) 5700 (9558-9676) /uL Lymph # (Auto) 1900 (3683-9485) /uL [place] # (Auto) 400 (0-900) /uL Eos # (Auto) 100 (0-450) /uL Baso # (Auto) 100 (0-100) /uL PT 10.7 (10.1-12.7) SECONDS INR 0.9 (0.9-1.3) APTT 32 (26-36) SECONDS Sodium 139 (137-145) mmol/L Potassium 3.7 (3.4-5.1) mmol/L Chloride 104 (98-107) mmol/L Carbon Dioxide 28 (22-32) mmol/L BUN 19 H (7-17) mg/dL Creatinine 0.74 (0.52-1.04) mg/dL Estimated GFR > 60 (>60) mL/min BUN/Creatinine Ratio 25.7 H (6-22) Glucose 91 (70-100) mg/dL Calcium 9.2 (8.4-10.2) mg/dL Magnesium 2.0 (1.6-2.3) mg/dL Total Bilirubin 0.7 (0.2-1.3) mg/dL AST 24 (14-36) IU/L ALT 30 (<35) IU/L Alkaline Phosphatase 100 (38-126) U/L Total Creatine Kinase 35 (30-135) U/L CK-MB (CK-2) TNP CK-MB (CK-2) Rel Index TNP Troponin I < 0.012 (0.01-0.034) ng/mL Total Protein 7.2 (6.3-8.2) g/dL Albumin 4.1 (3.5-5.0) g/dL Globulin 3.1 (1.7-4.1) g/dL Albumin/Globulin Ratio 1.3 (1.0-2.8) Lipase 185 (23-300) U/L ECG Data Interpretation: Sinus rhythm at a rate of 64 Normal intervals, normal axis No acute ischemic changes MDM Narrative Medical decision making narrative: CC: Hypertensive crisis with headache and chest pain. New diagnosis, uncertain prognosis with systemic symptoms and potential for significant morbidity and mortality Complicating co-morbidities: Baseline hypertension poorly controlled with documented blood pressures over the last number of months in the 220/140 range fairly consistently,. Prior difficulties with hypertension, reported intracranial bleed associated with hypertensive urgency in March however CT angiogram from that date does not support this. Corroborating data: Data collected from: patient, Medical records reviewed: Primary care notes, today her carvedilol which had been 6.25 b.i.d. was increased to 12.5 b.i.d.. She remains on 100 of losartan and 25 mg of hydrochlorothiazide Differential considered: Hypertensive emergency, intracranial hemorrhage, dissection, acute coronary syndrome, reflux, medication noncompliance Exam documented above, pertinent findings include: Alert and appropriate, significantly elevated blood pressures even on repeat, complains of headache and chest pain through the center of her body, GCS of 15 Lab Test results independently reviewed as above. Pertinent findings: Independently reviewed EKG as above Imaging studies independently reviewed: CT head does not show any acute bleeds. CT angiogram of the chest abdomen and pelvis does not show dissection or other specific abnormalities to explain her pain Consultations: Gato LEHMANP hospitalist, accepts admit Treatments: Upon arrival complaining initially of hypertension with mild headache she was given an additional 50 mg of her losartan and Tylenol. When she began complaining of chest pain and her blood pressure was found to be 260/140 she was started on a nicardipine drip with excellent response. It did not alleviate her headache to have her blood pressure in the 160/80 range. She was given a dose of hydromorphone with some relief. Re-evaluations: 8pm blood pressures come down nicely with nicardipine drip currently at 157/68 patient continues to complain of significant fatigue. Notes the headache is still present even after Tylenol. The central chest pain has resolved. 10pm imaging studies do not show acute abnormalities. She was inadvertently taken off her nicardipine for the 2nd imaging study and blood pressure was back up to 190/100 shortly after the nicardipine was discontinued. It is restarted and blood pressure is 167/80. Discussion: 51-year-old woman with dramatically elevated blood pressure witn associated severe headache and then central chest pain radiating through to her back concerning for dissection. Imaging studies do not confirm stroke or dissection. She is slightly more comfortable with nicardipine drip running. We will recommend hospitalization for management of her hypertensive crisis and help with transitioning to additional oral hypertensives for safe discharge home. Second trop is ordered and 5mg of oral nifedipine is administered to help wtih weaning the IV nicardipine over the next hours Critical Care Time Critical Care Time Critical Care Time: Yes Total Critical Care Time: 36 Attestation: Critical care time is separate from other billable procedures. There is a high probability of a significant, sudden or life-threatening deterioration that requires my full and direct attention, intervention and personal management. This critical care time includes consultation with family and other consulting doctors, review of records, and interpretation of data from labs, EKGs and imaging as well as managements of hypertensive crisis with IV blood pressure management required Discharge Plan Departure Patient Disposition: Admitted as Observation Clinical Impression: Hypertensive crisis Chest pain Qualifiers: Chest pain type: unspecified Qualified Code(s): R07.9 - Chest pain, unspecified Headache Qualifiers: Headache type: unspecified Headache chronicity pattern: acute headache Intractability: not intractable Qualified Code(s): R51.9 - Headache, unspecified Admit Date/Time: 08/14/22 22:04 Admit Provider: Anyi Virk
[2022-08-14] MEDS: ONDANSETRON 4 MG/2 ML INJ IV (18:43)
[2022-08-14] MEDS: LOSARTAN 50 MG TABLET PO (18:43)
[2022-08-14] MEDS: ACETAMINOPHEN 325 MG TABLET 975 MG PO (18:43)
--- NOTE | 2022-08-14 19:01 | DI.CT.S_ITS ---
PROCEDURE: CT HEAD/BRAIN WO CON INDICATIONS: hypertensive crisis with headache, prior bleed with similar TECHNIQUE: Noncontrast 4.5 mm thick angled axial sections acquired from the foramen magnum to the vertex, with coronal and sagittal reformats. For radiation dose reduction, the following was used: automated exposure control, adjustment of mA and/or kV according to patient size. COMPARISON: [facility], CT, HEAD WITHOUT CONTRAST, 03/25/2017, 14:59. FINDINGS: Image quality: Good CSF spaces: Basal cisterns are patent. Lateral ventricles are symmetric. Volume: Minimal volume loss Brain: Stable hypoattenuating focus adjacent to the left lateral ventricle possibly a prior infarct or perivascular space. No acute hemorrhage. Craniofacial structures: Mild paranasal sinus opacification. IMPRESSION: No acute intracranial abnormality. Dictated by: Michele Galloway M.D. on 08/14/2022 at 19:55 Approved by: Michele Galloway M.D. on 08/14/2022 at 19:58
--- NOTE | 2022-08-14 19:01 | DI.CT.S_ITS ---
PROCEDURE: CT ANGIO ABDOMEN PELVIS INDICATIONS: hypertensive emergency with severe mediastinal pain TECHNIQUE: After the administration of intravenous contrast, 2.5 mm thick sections acquired from the diaphragm to the symphysis. 10 mm maximum-intensity projection (MIP) reformats were then acquired. For radiation dose reduction, the following was used: automated exposure control. COMPARISON: [facility], CT, CT ANGIO CHEST ABDOMEN PELVIS, 04/06/2022, 9:01. FINDINGS: Image quality: Good Lower chest: Unremarkable. Postsurgical bypass changes of the stomach and esophagus, with hiatal hernia Solid organs: Mild hepatic steatosis. Gallbladder is absent. No splenomegaly. No pathologic dilation of the biliary tree or pancreatic duct. Left adrenal adenomatous thickening, as before. No hydronephrosis. Possible small left parapelvic renal cysts. No hydronephrosis Vessels and lymph nodes: No dissection, aneurysm. No high-grade stenosis. The mesenteric vessels and renal arteries are patent. Mild atherosclerotic disease. The veins and portal system are not well evaluated on this study. Air in the main pulmonary artery partially seen may be iatrogenic, trace volume. Bowel and peritoneum: No pathologic adenopathy by size criteria. Body wall: Unremarkable Pelvis: There is air at the vaginal cuff, of uncertain etiology. Pelvis is not well evaluated on CT. Bladder is unremarkable. Bones: No acute or suspicious osseous abnormality. IMPRESSION: No acute abdominopelvic pathology. No evidence of aneurysm, dissection, or high-grade stenosis. Other findings as above. Dictated by: Michele Galloway M.D. on 08/14/2022 at 20:04 Approved by: Michele Galloway M.D. on 08/14/2022 at 20:11
[2022-08-14 19:05] LABS: Add Manual Diff / Slide Review NO; Basophils Absolute Auto 100 /uL (0-100); Basophils Percent Auto 0.8 % (0-2); Eosinophils Absolute Auto 100 /uL (0-450); Eosinophils Percent Auto 0.7 % (2-4); Hematocrit 42.1 % (36-46); Lymphocytes Absolute Auto 1900 /uL (1100-4500); Lymphocytes Percent Auto 23.2 % (25-40); Mean Corpuscular HGB Conc 33.3 % (30-36); Mean Corpuscular Hemoglobin 30.8 PG (26-34); Mean Corpuscular Volume 92.5 fL (80-100); Monocytes Absolute Auto 400 /uL (0-900); Monocytes Percent Auto 5.4 % (3-14); Neutrophils Absolute Auto 5700 /uL (1500-7000); Neutrophils Percent Auto 69.9 % (50-75); Platelet Count 229 X10^3/uL (150-400); Red Blood Cell Count 4.56 X10^6/uL (4.0-5.2); Red Cell Distribution Width 14.2 % (11.6-14.8); White Blood Cell Count 8.1 X10^3/uL (4.5-11.0)
[2022-08-14 19:09] LABS: INR 0.9 (0.9-1.3); Prothrombin Time 10.7 SECONDS (10.1-12.7)
[2022-08-14] MEDS: NICARDIPINE 25 MG in SODIUM CHLORIDE 0.9% 240 ML 50 MG IV (19:09)
[2022-08-14 19:11] LABS: PTT Partial Thromboplastin Tim 32 SECONDS (26-36)
[2022-08-14 19:14] LABS: Alanine Aminotransferase 30 IU/L (<35); Albumin 4.1 g/dL (3.5-5.0); Albumin Globulin Ratio 1.3 (1.0-2.8); Alkaline Phosphatase 100 U/L (38-126); Aspartate Aminotransferase 24 IU/L (14-36); BUN Creatinine Ratio 25.7 (6-22); Bilirubin Total 0.7 mg/dL (0.2-1.3); Blood Urea Nitrogen 19 mg/dL (7-17); Calcium 9.2 mg/dL (8.4-10.2); Carbon Dioxide 28 mmol/L (22-32); Chloride 104 mmol/L (98-107); Creatine Kinase 35 U/L (30-135); Estimated Glomerular Filt Rate > 60 mL/min (>60); Globulin 3.1 g/dL (1.7-4.1); Glucose 91 mg/dL (70-100); HEMOLYSIS < 15 (0-50); Lipase 185 U/L (23-300); Potassium 3.7 mmol/L (3.4-5.1); Sodium 139 mmol/L (137-145); Total Protein 7.2 g/dL (6.3-8.2)
--- NOTE | 2022-08-14 19:17 | PC.NURSE ---
Pt reports HTN uncontrolled with PO medications. Normal BP 210's/120's and pt reports that she had a small brain bleed in the past. Pt having intense headache and nausea. Current BP 203/98. IV placed by EMS 20g L AC. Lab in to draw. Pt taken to CT and started on a nicardipine gtt per SEP. handoff Report given EDUARDO Woody.
[2022-08-14 19:24] LABS: Troponin I < 0.012 ng/mL (0.01-0.034)
--- NOTE | 2022-08-14 20:19 | DI.CT.S_ITS ---
PROCEDURE: CT ANGIO CHEST INDICATIONS: to complete entire aortic study - abd/pelvis done earlier TECHNIQUE: After the administration of intravenous contrast, 2.5 mm thick sections acquired from the lung apices to the posterior lung bases. Maximum intensity projection (MIP) oblique sagittal reformats were then acquired parallel to the aortic arch. For radiation dose reduction, the following was used: automated exposure control. COMPARISON: [facility], CT, CT ANGIO ABDOMEN PELVIS, 08/14/2022, 19:16. [facility], CT, CT ANGIO CHEST ABDOMEN PELVIS, 04/06/2022, 9:01. FINDINGS: Image quality: Excellent. Aorta: The thoracic and visualized abdominal aorta is normal in caliber and contour without intimal flaps to suggest dissection. There is conventional branching of the aortic arch. The visualized great vessels are normal in caliber and appear patent. Lower Neck: No lymphadenopathy by size criteria. Thyroid: Visualized thyroid demonstrates no discrete nodules. Axillae: No lymphadenopathy by size criteria. Chest Wall: Unremarkable. Bones: Visualized osseous structures demonstrate no suspicious lesions. Lungs and Airways: No acute consolidation. There is mild dependent atelectasis. The trachea and central airways are patent. Pleura: No pneumothorax or pleural effusions. Heart: Heart size is normal. No pericardial effusion. Thoracic Vessels: The pulmonary arteries are normal in size and demonstrate no filling defects to suggest central pulmonary embolism. Mediastinum and Carolyn: No lymphadenopathy by size criteria. Esophagus: No wall thickening. There is a small hiatal hernia. Abdomen: Visualized upper abdomen demonstrates postsurgical changes consistent with prior gastric bypass. There is nodular thickening of the adrenal glands redemonstrated bilaterally. IMPRESSION: 1. No evidence of aortic aneurysm or dissection within the thoracic aorta. 2. No evidence of pulmonary embolism. 3. No acute airspace consolidation. Dictated by: Lazaro Villafana M.D. on 08/14/2022 at 22:01 Approved by: Lazaro Villafana M.D. on 08/14/2022 at 22:05
[2022-08-14] MEDS: HYDROMORPHONE 0.5 MG INJ IV (21:26)
[2022-08-14] MEDS: AMLODIPINE 5 MG TABLET PO (22:05)
[2022-08-14 22:56] LABS: Troponin I < 0.012 ng/mL (0.01-0.034)
[2022-08-14 23:44] LABS: COVID19 -Nasal RAPID Negative (Negative)
[2022-08-15] VITALS (45 sets, daily range): BP systolic 103–186; BP diastolic 59–108; PULSE 66–86; RESP 14–42; TEMP 35.7–36.7; O2SAT 92–98; BMI 40.1
--- NOTE | 2022-08-15 00:35 | P.HP_ITS ---
History of Present Illness History of Present Illness Date Patient Seen: 08/15/22 Time Patient Seen: 00:35 Chief complaint: Nausea and HTN Narrative: Imani Almanza is a 51 y.o. female who with a history of severe and poorly controlled hypertension presented to the ED with significantly elevated blood pressure.? She was having a tele video appointment with her primary care doctor to discuss her hypertension and during that consultation she checked her home bl ood pressure and found it to be in the in the 220/120 range.? She did have a headache and was instructed come to the emergency department.? She had similar complaints in March of last year with headache, blurred vision and chest pain lasting from 30-45 seconds. She endorses having nausea and vomiting, abdominal and back cramping and bilateral leg pain. She states she has backed off on exersize because she gets very short of breath. States she does get dizzy to the point of severe vertigo. She a a gastric bypass in 2015 and lost about 125 lbs, she attempted to increase her weight as she stated she looked poorly. When the pandemic hit, she states she put most of the weight back on due to w orking at home and not being able to exercise. She states one of her bp medications had been doubled, but that the EMT said he was concerned because he thought her heart rate was low and may be lowered. In the ED, she was started on a nifedipine drip, then administered a one time dose of amlopdipine 5 mg. Imaging studies ruled out any acute cardiopulmonary process, ruled out PE, head CT was negative for CVA or injury, chest x-ray was negative. Presenting blood pressure in the ED was 202/89 and trended up as high as 218/93. Currently her blood pressure is 126/64 she is afebrile heart rate 78 respiratory rate 21 oxygen saturation of 94% on room air she weighs 106.14 kg with a BMI of 40.2. CBC is unremarkable, chemistry is unremarkable and COVID-19 PCR is negative. States her father's side has had heart disease, he at age 59 of asbestosis, mother age 57 of alcohol abuse. Patient states she uses estrogen patches, smokes 4 cigarrettes/day and drinks 2 glasses of wine/day. 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 Patient History Medical History Fibromyalgia History of prediabetes Hypertension Surgical History H/O gastric bypass Family & Social History Safety & Behavioral: Feels Safe in Current Yes Environment Been Physically Hurt or No Threatened By a Person Tobacco & Substance use: Smoking Status Current every day smoker alcohol intake frequency 0-2 drinks per day Substance Use Type does not use Meds Home Medications and Allergies Home Medications Medication Instructions Recorded Confirmed Type carvedilol 6.25 mg tablet 6.25 mg PO BID #180 tabs 06/11/22 07/02/22 Rx losartan 100 1 tab PO DAILY #30 tabs 07/01/22 07/02/22 Rx mg-hydrochlorothiazide 25 mg tablet estradiol 0.1 mg/24 hr weekly 0.1 mg topical QWEEK #4 ea 07/02/22 07/02/22 Rx transdermal patch carvedilol 12.5 mg tablet 12.5 mg PO BID #60 tabs 08/14/22 Rx Allergies Allergy/AdvReac Type Severity Reaction Status Date / Time amoxicillin [AMOXICILLIN] Allergy Severe SWELLING Verified 08/14/22 18:24 FACE, THROAT & HIVES ALL OVER. Penicillins [PENICILLINS] Allergy Intermediate RASH/ITCHING, Verified 08/14/22 18:24 TROUBLE BREATHING. diphenhydramine Allergy Mild SWELLING. Verified 08/14/22 18:24 [DIPHENHYDRAMINE] latex [LATEX] Allergy Mild RASH Verified 08/14/22 18:24 magnesium citrate AdvReac Unknown VOMITING Verified 08/14/22 18:24 [MAGNESIUM CITRATE] Review of Systems Review of Systems ROS: Yes All systems reviewed with the patient and are negative except as otherwise documented Exam Vital Signs (past 8 hours): - 08/14/22 18:20 08/14/22 18:43 08/14/22 18:38 Temperature 97.6 F Pulse Rate 67 65 Respiratory Rate 16 31 H Blood Pressure 202/89 H 202/89 H Pulse Oximetry 99 99 Oxygen Delivery Method Room Air 08/14/22 18:49 08/14/22 18:49 08/14/22 19:00 Temperature Pulse Rate 65 Respiratory Rate 35 H Blood Pressure 218/93 H 208/93 H Pulse Oximetry 100 Oxygen Delivery Method 08/14/22 19:00 08/14/22 19:09 08/14/22 19:09 Temperature Pulse Rate 68 68 Respiratory Rate 30 H 23 Blood Pressure 202/79 H Pulse Oximetry 98 98 Oxygen Delivery Method 08/14/22 19:30 08/14/22 19:35 08/14/22 19:35 Temperature Pulse Rate 71 65 Respiratory Rate 14 Blood Pressure 210/84 H Pulse Oximetry 99 Oxygen Delivery Method 08/14/22 19:40 08/14/22 19:40 08/14/22 19:50 Temperature Pulse Rate 72 75 Respiratory Rate 20 17 Blood Pressure 175/56 H Pulse Oximetry 96 96 Oxygen Delivery Method 08/14/22 19:50 08/14/22 20:00 08/14/22 20:00 Temperature Pulse Rate 78 Respiratory Rate 21 Blood Pressure 157/68 H 155/68 H Pulse Oximetry 95 Oxygen Delivery Method 08/14/22 20:10 08/14/22 20:10 08/14/22 20:20 Temperature Pulse Rate 77 Respiratory Rate 20 Blood Pressure 154/70 H 150/68 H Pulse Oximetry 96 Oxygen Delivery Method 08/14/22 20:20 08/14/22 20:30 08/14/22 20:30 Temperature Pulse Rate 77 79 Respiratory Rate 20 20 Blood Pressure 143/67 H Pulse Oximetry 96 94 Oxygen Delivery Method Room Air 08/14/22 20:40 08/14/22 20:40 08/14/22 21:00 Temperature Pulse Rate 91 H 83 Respiratory Rate 21 Blood Pressure 171/89 H Pulse Oximetry 99 95 Oxygen Delivery Method Room Air Room Air 08/14/22 21:20 08/14/22 21:20 08/14/22 21:25 Temperature Pulse Rate 67 77 Respiratory Rate Blood Pressure 177/81 H Pulse Oximetry 97 97 Oxygen Delivery Method 08/14/22 21:25 08/14/22 21:30 08/14/22 21:40 Temperature Pulse Rate 71 67 Respiratory Rate Blood Pressure 170/88 H Pulse Oximetry 96 96 Oxygen Delivery Method 08/14/22 21:40 08/14/22 21:44 08/14/22 21:44 Temperature Pulse Rate 65 Respiratory Rate Blood Pressure 180/91 H 187/100 H Pulse Oximetry 97 Oxygen Delivery Method 08/14/22 21:50 08/14/22 21:50 08/14/22 22:00 Temperature Pulse Rate 76 Respiratory Rate Blood Pressure 167/80 H 169/78 H Pulse Oximetry 94 Oxygen Delivery Method Room Air 08/14/22 22:00 08/14/22 22:11 08/14/22 22:11 Temperature Pulse Rate 80 75 Respiratory Rate Blood Pressure 147/80 H Pulse Oximetry 94 94 Oxygen Delivery Method 08/14/22 22:20 08/14/22 22:20 08/14/22 22:30 Temperature Pulse Rate 79 Respiratory Rate Blood Pressure 153/87 H 147/83 H Pulse Oximetry 96 Oxygen Delivery Method 08/14/22 22:30 08/14/22 22:40 08/14/22 22:40 Temperature Pulse Rate 79 77 Respiratory Rate Blood Pressure 152/87 H Pulse Oximetry 95 94 Oxygen Delivery Method 08/14/22 22:50 08/14/22 22:50 08/14/22 23:02 Temperature Pulse Rate 79 94 H Respiratory Rate Blood Pressure 158/78 H Pulse Oximetry 95 97 Oxygen Delivery Method 08/14/22 23:03 08/14/22 23:03 08/14/22 23:10 Temperature Pulse Rate 84 Respiratory Rate Blood Pressure 145/85 H 147/76 H Pulse Oximetry 98 Oxygen Delivery Method 08/14/22 23:10 08/14/22 23:20 08/14/22 23:20 Temperature Pulse Rate 78 87 Respiratory Rate Blood Pressure 144/90 H Pulse Oximetry 94 95 Oxygen Delivery Method 08/14/22 23:30 08/14/22 23:30 08/14/22 23:40 Temperature Pulse Rate 70 78 Respiratory Rate Blood Pressure 138/78 Pulse Oximetry 95 94 Oxygen Delivery Method 08/14/22 23:40 Temperature Pulse Rate Respiratory Rate Blood Pressure 126/64 Pulse Oximetry Oxygen Delivery Method Oxygen Delivery Method Room Air Narrative Exam Narrative: Gen: Alert, oriented, morbidly obese 51 y.o. female, NAD HEENT: normocephalic, atraumatic, conjunctiva clear, sclera non-icteric, oral mucosa pink and moist Neck: supple, full ROM, no JVD, trachea is midline Resp: Lungs CTA, non-labored breathing CV: RRR, no murmur or rubs Abd: soft, non-tender, normoactive BTs Skin: trace edema bilat. LE. No lesions or rashes, dry and intact Neuro: Alert and oriented X 4 w/no focal deficits. Speech clear and coherent. Extremities: moves all 4 extremities, is ambulatory, negative Earnest?s sign Psyche: normal mood and affect. Objective Labs 08/14/22 18:49 08/14/22 18:49 Labs: Laboratory Results - last 24 hr 08/14/22 08/14/22 08/14/22 18:49 18:49 18:49 WBC 8.1 RBC 4.56 Hgb 14.0 Hct 42.1 MCV 92.5 MCH 30.8 MCHC 33.3 RDW 14.2 Plt Count 229 Neut % (Auto) 69.9 Lymph % (Auto) 23.2 L Graves % (Auto) 5.4 Eos % (Auto) 0.7 L Baso % (Auto) 0.8 Neut # (Auto) 5700 Lymph # (Auto) 1900 Graves # (Auto) 400 Eos # (Auto) 100 Baso # (Auto) 100 PT 10.7 INR 0.9 APTT 32 Sodium 139 Potassium 3.7 Chloride 104 Carbon Dioxide 28 BUN 19 H Creatinine 0.74 Estimated GFR > 60 BUN/Creatinine Ratio 25.7 H Glucose 91 Calcium 9.2 Magnesium 2.0 Total Bilirubin 0.7 AST 24 ALT 30 Alkaline Phosphatase 100 Total Creatine Kinase 35 CK-MB (CK-2) TNP CK-MB (CK-2) Rel Index TNP Troponin I < 0.012 Total Protein 7.2 Albumin 4.1 Globulin 3.1 Albumin/Globulin Ratio 1.3 Lipase 185 SARS-CoV-2 (PCR) 08/14/22 08/14/22 22:25 23:26 WBC RBC Hgb Hct MCV MCH MCHC RDW Plt Count Neut % (Auto) Lymph % (Auto) Graves % (Auto) Eos % (Auto) Baso % (Auto) Neut # (Auto) Lymph # (Auto) Graves # (Auto) Eos # (Auto) Baso # (Auto) PT INR APTT Sodium Potassium Chloride Carbon Dioxide BUN Creatinine Estimated GFR BUN/Creatinine Ratio Glucose Calcium Magnesium Total Bilirubin AST ALT Alkaline Phosphatase Total Creatine Kinase CK-MB (CK-2) CK-MB (CK-2) Rel Index Troponin I < 0.012 Total Protein Albumin Globulin Albumin/Globulin Ratio Lipase SARS-CoV-2 (PCR) Negative Assessment & Plan Assessment & Plan narrative: Imani Almanza is admitted to ICU status for a hypertensive urgency. Hypertensive urgency, malignant, acute and present on admission * She is admitted to ICU status, however, she is boarding in the ED due to lack of room/staff availability., She will likely become floor status by the am. * She is on a nifedipine drip which is cross tapored w/amlodipine 5 mg * She is recommended to cease estrogen patches and tobacco use. * Echo in the am Risk stratification * Fasting lipids in the am * TSH * She had an A1c in June 2022 and it was 5.0 Other independent historians: none Discussion of results, plan of care with independent HCP/other ED provider Reviewed outside records: PCP records VTE Prophylaxis: Wells risk score 1 Enoxaparin 40 mg subQ once daily Bilateral SCDs Patient is admitted to the inpatient intensive service due to the severity of disease, cardiac drips and close monitoring, risks of further disease pr ogression and this stay is expected to exceed 2 midnights. FEN: IV fluids: saline lock, diet: heart healthy, labs: CBC, C/BMP, liver enzymes, Mag, PT/INR Consultants eICU care and involvement in the patient?s care is appreciated. Social determinants of health: compliance, access to rx. Dispo: probable d/c to home Code status: full as discussed with the patient who identifies daughter as her surrogate and POA. Advanced care planning [ ] minutes. [X] I have utilized all available immediate resources to obtain, update, or review of the patient's current medications VTE Deep Vein Thrombosis/Pulmonary Embolism Present on Admission: No MIPS - Admit I confirm the patient?s Advance Care Plan is present, Code status is documented, Surrogate decision maker is in patient?s record: Yes MIPS - DC The patient has current or prior documentation of left ventricular ejection fraction (LVEF) less than 40%, or moderate or severely depressed left ventricular systolic function.: No COVID-19 COVID-19 status: Negative Result date/Date tested (Pos, Neg/Pending): 08/15/22 Time Spent With Patient Critical Care time: I spent a total of [] minutes of critical care time on this patient's care today; this time is exclusive of procedural time.
[2022-08-15] MEDS: NICARDIPINE 25 MG in SODIUM CHLORIDE 0.9% 240 ML 50 MG IV ×2 (01:11→06:07)
[2022-08-15] MEDS: MORPHINE 2 MG/ML INJ IV (01:13)
[2022-08-15] MEDS: ONDANSETRON 4 MG/2 ML INJ IV (01:43)
[2022-08-15 04:11] LABS: Add Manual Diff / Slide Review NO; Basophils Absolute Auto 0 /uL (0-100); Basophils Percent Auto 0.6 % (0-2); Eosinophils Absolute Auto 100 /uL (0-450); Eosinophils Percent Auto 1.1 % (2-4); Hematocrit 39.5 % (36-46); Hemoglobin 13.6 g/dL (12.0-16.0); Lymphocytes Absolute Auto 2100 /uL (1100-4500); Lymphocytes Percent Auto 27.6 % (25-40); Mean Corpuscular HGB Conc 34.4 % (30-36); Mean Corpuscular Volume 90.2 fL (80-100); Monocytes Absolute Auto 500 /uL (0-900); Monocytes Percent Auto 6.1 % (3-14); Neutrophils Absolute Auto 4900 /uL (1500-7000); Neutrophils Percent Auto 64.6 % (50-75); Platelet Count 203 X10^3/uL (150-400); Red Blood Cell Count 4.39 X10^6/uL (4.0-5.2); White Blood Cell Count 7.6 X10^3/uL (4.5-11.0)
[2022-08-15 04:27] LABS: Alanine Aminotransferase 28 IU/L (<35); Albumin 3.9 g/dL (3.5-5.0); Albumin Globulin Ratio 1.3 (1.0-2.8); Alkaline Phosphatase 94 U/L (38-126); Aspartate Aminotransferase 25 IU/L (14-36); BUN Creatinine Ratio 22.8 (6-22); Bilirubin Total 0.8 mg/dL (0.2-1.3); Blood Urea Nitrogen 13 mg/dL (7-17); Calcium 8.8 mg/dL (8.4-10.2); Carbon Dioxide 28 mmol/L (22-32); Chloride 100 mmol/L (98-107); Cholesterol 225 mg/dL (140-199); Estimated Glomerular Filt Rate > 60 mL/min (>60); Globulin 2.9 g/dL (1.7-4.1); Glucose 99 mg/dL (70-100); HDL Cholesterol 89 mg/dL (40-60); HEMOLYSIS < 15 (0-50); LDL Cholesterol Calculated 115 mg/dL (<100); Magnesium 1.8 mg/dL (1.6-2.3); Potassium 3.4 mmol/L (3.4-5.1); Sodium 135 mmol/L (137-145); Total Protein 6.8 g/dL (6.3-8.2); Triglycerides 105 mg/dL (35-150)
[2022-08-15 04:38] LABS: Troponin I < 0.012 ng/mL (0.01-0.034)
[2022-08-15] MEDS: ENOXAPARIN 40 MG/0.4 ML SYRINGE SUBCUT ×2 (08:35→20:54)
[2022-08-15] MEDS: LOSARTAN 50 MG TABLET 100 MG PO (08:35)
[2022-08-15] MEDS: hydroCHLOROthiazide 25 MG TABLET PO (08:36)
[2022-08-15] MEDS: carvediloL 12.5 MG TABLET PO ×2 (08:36→20:54)
--- NOTE | 2022-08-15 09:00 | DI.ECHO.S_ITS ---
[facility]---------+ [facility] +---------+ : : [address] : : : : [id number] : : : : Phone: [phone]+ Echocardiogram Report + + :Name: FERMIN YORK Study Date: 08/15/2022 Height: 64 in : :[facility] ReadingLocation: Weight: 234 lb : : Gender: Female BSA: 2.1 m2 : :: 1970 Age: 51 yrs BP: 122/59 mmHg: :Reason For Study: HYPERTENSIVE EMERGENCY, CHEST PAIN : :Ordering Physician: Kristy JAMESformed By: Sadia Nolasco : :Referring: ROMAN JAMES : + + Interpretation Summary 1) Small left ventricular cavity with normal systolic function (EF 65-70%). 2) Increased septal thickness (1.4cm) with systolic anterior motion of the mitral valve and peak LVOT gradient 192mmHg. This is suggestive of hypertrophic obstructive cardiomyopathy. 3) The right ventricle is normal in size and function. 4) No signficant valvular stenosis or regurgitation. 5) Compared to the Echo done 10/05/2014, hypertrophic obstructive cardiomyopathy is apparent on this study. Procedure: A two-dimensional transthoracic echocardiogram with color flow and Doppler was performed. The study quality was technically adequate. Comparison is made with the echocardiogram of 10/05/2014. The patient was in sinus rhythm with heart rates between 64-76 bpm during the exam. Left Ventricle: The left ventricular cavity is small. There is normal left ventricular wall thickness. Proximal septal thickening is noted. The left ventricular outflow velocity with valsalva is 6.93. Peak LVOT gradient 192mmHg. The ejection fraction is estimated to be 65-70%. Left ventricular systolic function appears normal without focal wall motion abnormalities. Diastolic parameters suggest a relaxation abnormality of the left ventricle, consistent with probable normal filling pressures. Right Ventricle: The right ventricle is normal in size and function. Atria: The left atrial size is normal. Right atrial size is normal. There is no Doppler evidence for an interatrial shunt. Mitral Valve: There is systolic anterior motion of the mitral valve. There is mild mitral regurgitation. Aortic Valve: The aortic valve is not well visualized. There is no aortic valve stenosis. No aortic regurgitation is present. Tricuspid Valve: The tricuspid valve is normal in structure and function. There is trace tricuspid regurgitation. Pulmonic Valve: The pulmonic valve is not well visualized. There is no pulmonic valvular regurgitation. Great Vessels: The aortic root is normal size. The ascending aorta is at the upper limits of normal in size. The IVC is of normal diameter and collapses greater than 50% with a sniff. This suggests a low right atrial pressure of 3 mm Hg. Pericardium/ Pleura There is no pericardial effusion. There is no pleural effusion. MMode/2D Measurements & Calculations LVIDd: 4.1 cm LVOT diam: 2.0 cm LVIDs: 2.7 cm Ao root diam: 3.0 cm FS: 35.7 % asc Aorta Diam: 3.6 cm IVSd: 1.4 cm Ao Arch Diam (Prox Trans): 3.2 cm LVPWd: 1.0 cm LV schaefer. diameter/BSA (cm/m^2): 2.0 LV sys. diameter/BSA (cm/m^2): 1.3 LA A2 area: 22.8 cm2 RA long axis: 4.6 cm LA A4 area: 16.9 cm2 RA area: 11.4 cm2 LA length (vol): 5.1 cm RA vol: 24.1 ml LA vol: 63.9 ml RA : 11.5 ml/m2 LA vol index: 30.5 ml/m2 IVC diam: 0.97 cm RVD1 (basal): 3.7 cm RVD2 (mid): 2.7 cm TAPSE: 2.3 cm Doppler Measurements & Calculations Ao V2 max: 240.3 cm/sec MV E max odilon: 75.7 cm/sec Ao V2 mean: 177.0 cm/sec MV A max odilon: 97.7 cm/sec Ao max P.1 mmHg MV E/A: 0.77 Ao mean P.3 mmHg Med Peak E' Odilon: 6.9 cm/sec Ao V2 VTI: 49.2 cm E/E' med: 10.9 Lat Peak E' Odilon: 7.9 cm/sec E/E' lat: 9.6 E/e' average: 10.3 MV dec time: 0.23 sec PA V2 max: 103.0 cm/sec PA V2 mean: 76.2 cm/sec PA mean P.5 mmHg PA pr(Accel): 32.8 mmHg Reading Physician:12:54 PM
--- NOTE | 2022-08-15 10:47 | PC.NURSE ---
Addendum entered by Dinorah Roque R.N. 08/15/22 10:51: EDUARDO Ware notified. Original Note: spoke with Florencia, stated Dr. Champagne turned off Nicardipine gtt and patient can go to acute care. I walked in room Nicardipine gtt was still infusing. Gtt turned off. bp 127/70.
--- NOTE | 2022-08-15 12:33 | PC.NURSE ---
Addendum entered by Yu Levy R.N. 08/15/22 15:29: Patient given tylenol for complaints of abdominal pain and leg pain. This has been helpful. Patient has decided to stay until tomorrow. Blood pressure wnl and she continues to deny chest pain. Original Note: Patient to room 208. Blood pressure is wnl and patient denies chest pain. She is resting comfortably and denies any discomfort.
[2022-08-15] MEDS: POTASSIUM CHLORIDE 20 MEQ TAB 40 MEQ PO (13:38)
[2022-08-15] MEDS: ACETAMINOPHEN 325 MG TABLET 650 MG PO (13:40)
[2022-08-15] MEDS: ATORVASTATIN 20 MG TABLET 40 MG PO (20:54)
[2022-08-16 00:10] VITALS: BP 123/77; PULSE 62; RESP 17; TEMP 36.6; O2SAT 98
[2022-08-16 05:07] VITALS: BP 150/82; PULSE 64; RESP 16; TEMP 36.2; O2SAT 98
[2022-08-16 06:59] LABS: Add Manual Diff / Slide Review NO; Basophils Absolute Auto 0 /uL (0-100); Basophils Percent Auto 0.4 % (0-2); Eosinophils Absolute Auto 100 /uL (0-450); Eosinophils Percent Auto 1.3 % (2-4); Hematocrit 38.8 % (36-46); Hemoglobin 13.2 g/dL (12.0-16.0); Lymphocytes Absolute Auto 1400 /uL (1100-4500); Lymphocytes Percent Auto 23.5 % (25-40); Mean Corpuscular HGB Conc 33.9 % (30-36); Mean Corpuscular Hemoglobin 30.8 PG (26-34); Mean Corpuscular Volume 90.9 fL (80-100); Monocytes Absolute Auto 400 /uL (0-900); Monocytes Percent Auto 7.1 % (3-14); Neutrophils Absolute Auto 4000 /uL (1500-7000); Neutrophils Percent Auto 67.7 % (50-75); Platelet Count 201 X10^3/uL (150-400); Red Blood Cell Count 4.27 X10^6/uL (4.0-5.2); Red Cell Distribution Width 14.2 % (11.6-14.8); White Blood Cell Count 5.9 X10^3/uL (4.5-11.0)
[2022-08-16 07:10] LABS: Alanine Aminotransferase 26 IU/L (<35); Albumin 3.6 g/dL (3.5-5.0); Albumin Globulin Ratio 1.3 (1.0-2.8); Alkaline Phosphatase 78 U/L (38-126); Aspartate Aminotransferase 23 IU/L (14-36); BUN Creatinine Ratio 30.3 (6-22); Bilirubin Total 0.7 mg/dL (0.2-1.3); Blood Urea Nitrogen 20 mg/dL (7-17); Calcium 8.9 mg/dL (8.4-10.2); Carbon Dioxide 28 mmol/L (22-32); Chloride 103 mmol/L (98-107); Estimated Glomerular Filt Rate > 60 mL/min (>60); Globulin 2.8 g/dL (1.7-4.1); Glucose 95 mg/dL (70-100); HEMOLYSIS < 15 (0-50); Sodium 137 mmol/L (137-145); Total Protein 6.4 g/dL (6.3-8.2)
[2022-08-16 08:07] VITALS: BP 140/89
[2022-08-16] MEDS: ENOXAPARIN 40 MG/0.4 ML SYRINGE SUBCUT (08:07)
[2022-08-16] MEDS: hydroCHLOROthiazide 25 MG TABLET PO (08:07)
[2022-08-16] MEDS: carvediloL 12.5 MG TABLET PO (08:07)
[2022-08-16 08:08] VITALS: BP 140/89
[2022-08-16] MEDS: LOSARTAN 50 MG TABLET 100 MG PO (08:08)
[2022-08-16] MEDS: ONDANSETRON 4 MG/2 ML INJ IV (08:36)
[2022-08-16 09:00] VITALS: BP 140/89; PULSE 66; RESP 18; TEMP 36.2; O2SAT 97
--- NOTE | 2022-08-16 09:22 | PM.DS.1 ---
History of Present Illness History of Present Illness Date Patient Seen: 08/16/22 Time Patient Seen: 09:22 Chief complaint: Nausea and HTN Narrative: Per admitting provider, Imani Almanza is a 51 y.o. female who with a history of severe and poorly controlled hypertension presented to the ED with significantly elevated blood pressure.? She was having a tele video appointment with her primary care doctor to discuss her hypertension and during that consultation she checked her home blood pressure and found it to be in the in the 220/120 range.? She did have a headache and was instructed come to the emergency department.? She had similar complaints in March of last year with headache, blurred vision and chest pain lasting from 30-45 seconds. She endorses having nausea and vomiting, abdominal and back cramping and bilateral leg pain. She states she has backed off on exersize because she gets very short of breath. States she does get dizzy to the point of severe vertigo. She a a gastric bypass in 2015 and lost about 125 lbs, she attempted to increase her weight as she stated she looked poorly. When the pandemic hit, she states she put most of the weight back on due to working at home and not being able to exercise. She states one of her bp medications had been doubled, but that the EMT said he was concerned because he thought her heart rate was low and may be lowered. In the ED, she was started on a nifedipine drip, then administered a one time dose of amlopdipine 5 mg. Imaging studies ruled out any acute cardiopulmonary process, ruled out PE, head CT was negative for CVA or injury, chest x-ray was negative. Presenting blood pressure in the ED was 202/89 and trended up as high as 218/93. Currently her blood pressure is 126/64 she is afebrile heart rate 78 respiratory rate 21 oxygen saturation of 94% on room air she weighs 106.14 kg with a BMI of 40.2. CBC is unremarkable, chemistry is unremarkable and COVID-19 PCR is negative. States her father's side has had heart disease, he at age 59 of asbestosis, mother age 57 of alcohol abuse. Patient states she uses estrogen patches, smokes 4 cigarrettes/day and drinks 2 glasses of wine/day. 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 Discharge Providers Provider Date of admission: 08/14/22 22:04 Discharge Date: 02/05/23 Primary care physician: Artur Baez DO Discharge provider: Jone Champagne DO Summary Hospital Course Discharge Diagnosis: # hypertrophic obstructive cardiomyopathy # hypertensive urgency #obesity # tobacco use Hospital Course: Is a 51-year-old female with a past medical history of uncontrolled hypertension who was admitted with concern for possible hypertensive emergency as she present with chest pain, dizziness, and headache. There was no evidence of end-organ damage on further evaluation, though initially she was started on nicardipine infusion given her symptoms. Her blood pressure was controlled quite quickly and she was able to be off of nicardipine and of her home medications as well as increase in her home carvedilol. Echocardiogram was performed the morning after admission revealed a normal ejection fraction but did reveal hypertrophic obstructive cardiomyopathy. Cardiology was subsequently contacted and they recommended outpatient follow-up (for which clinic number was provided) and aggressive blood pressure control with ideal resting heart rate below 70. Her resting heart rate was in the 60s after increasing her home carvedilol again to 25 mg twice a day. Her blood pressure was markedly improved with the systolics in the 140s on the day of discharge, much improved from the 200s initially on admission. Close outpatient follow-up with her primary care provider and Cardiology as recommended, as her symptoms should continue to improve with initiation of medical therapy, however if not she may need additional specialty follow-up for her hypertrophic obstructive cardiomyopathy. She was counseled on avoiding vigorous exercise at this time. Obesity contriubtes to patient's risk and hypertension, as well as risk of sleep apnea. Outpatient sleep study is additionally recommended. Time Spent with Patient Time spent: Greater than 30 minutes Exam Vital Signs (past 8 hours): - 08/16/22 05:07 08/16/22 08:07 08/16/22 08:08 Temperature 97.2 F L Pulse Rate 64 Respiratory Rate 16 Blood Pressure 150/82 H 140/89 140/89 Pulse Oximetry 98 Oxygen Flow Rate 08/16/22 09:00 Temperature 97.1 F L Pulse Rate 66 Respiratory Rate 18 Blood Pressure 140/89 Pulse Oximetry 97 Oxygen Flow Rate 0 Oxygen Delivery Method Room Air Oxygen Flow Rate 0 Narrative Exam Narrative: General:? Patient is well developed and well nourished, in no distress at this time. HEENT:? Normocephalic, atraumatic, extraocular muscles intact, oral pharynx is clear and mucous membranes are moist. Neck: supple and symmetric, trachea is midline, no cervical adenopathy. Negative for JVD Chest:? Normal AP diameter and contour without kyphoscoliosis, no tachypnea, equal chest rise bilaterally. Lungs:? CTA b/l no wheezing rhonchi or rales. Cardio:?RRR no m/r/g. Abdomen: S NT ND. No CVA tenderness. Musculoskeletal:? Muscle strength and tone are equal within normal limits, no deformity. Extremities: No edema or joint effusions. No cyanosis or clubbing. Skin:? Pale,? Warm to touch,dry and intact without rashes, ulcerations or petechiae.? Neuro:? Alert and orientated x3,? sensation to touch intact in all extremities, no gross deficits noted of cranial nerves. Psych:? Patient has a well-kept appearance, appropriate affect, mental status attitude thought context and judgment are appropriate for age. Objective Labs 08/16/22 06:16 08/16/22 06:16 Labs: Laboratory Results - last 24 hr 08/16/22 08/16/22 06:16 06:16 WBC 5.9 RBC 4.27 Hgb 13.2 Hct 38.8 MCV 90.9 MCH 30.8 MCHC 33.9 RDW 14.2 Plt Count 201 Neut % (Auto) 67.7 Lymph % (Auto) 23.5 L [place] % (Auto) 7.1 Eos % (Auto) 1.3 L Baso % (Auto) 0.4 Neut # (Auto) 4000 Lymph # (Auto) 1400 [place] # (Auto) 400 Eos # (Auto) 100 Baso # (Auto) 0 Sodium 137 Potassium 4.0 Chloride 103 Carbon Dioxide 28 BUN 20 H Creatinine 0.66 Estimated GFR > 60 BUN/Creatinine Ratio 30.3 H Glucose 95 Calcium 8.9 Total Bilirubin 0.7 AST 23 ALT 26 Alkaline Phosphatase 78 Total Protein 6.4 Albumin 3.6 Globulin 2.8 Albumin/Globulin Ratio 1.3 PFSH Medical History Fibromyalgia History of prediabetes Hypertension Surgical History H/O gastric bypass Social History household members: significant other and children Smoking Status: Current every day smoker alcohol intake: current Discharge Plan Discharge Plan Patient Disposition: Home Provider Discharge Comment: You were admitted to the hospital with elevated blood pressures. Your ultrasound revealed something called HOCM, which is where your heart muscle is enlarged and is causing abnormal blood flow in your heart. Do not do heavy exercise until cleared by cardiology, and produce sorter would like to see you in their clinic, which you can call at [phone]. Please follow up with your PCP office as soon as possible to review hospitalization and medication changes. You may also need a referral from their office to be seen by cardiology as an outpatient. Discharge orders & Medications Prescriptions: New carvedilol 25 mg tablet 25 mg PO BID 30 Days Qty: 60 0RF Rx Instructions: must administer with a meal/food Continued losartan-hydrochlorothiazide 100-25 mg tablet 1 tab PO DAILY Qty: 30 2RF estradiol 0.1 mg/24 hr patch weekly 0.1 mg topical QWEEK Qty: 4 2RF Rx Instructions: Apply 1 patch, once a week acetaminophen 325 mg Tablet 325 mg PO QID PRN (Reason: Pain (Scale Score 1-3)) Discontinued carvedilol 12.5 mg tablet 12.5 mg PO BID Qty: 60 1RF Label Comments: patient has yet to start this increased dose. Was newly perscribed by provider prior to coming to the hospital. Rx Instructions: must administer with a meal/food carvedilol 6.25 mg tablet 6.25 mg PO BID Qty: 180 1RF Rx Instructions: must administer with a meal/food Follow up/Referrals: Jass Barragan MD [Physician] - 1 Month Artur Baez DO [Primary Care Provider] - 1 Week Discharge Health Status Health Concerns: HOCM Diet/Activity/Treatments Diet: Diet as Tolerated Activity: As tolerated, no heavy exercise recommended at this time. Visit Report/Discharge Packet Instructions: Hypertrophic Cardiomyopathy -- Adult Stand Alone Forms: Patient Portal/API, Stroke Signs & Symptoms Discharge Data Primary Care Provider: Artur Baez Attending Provider: Anyi Virk
--- NOTE | 2022-08-16 10:09 | CM.DANOTE ---
Patient is a 51 yo female who was admitted on 08/14/22 for Nausea/HTN. Pt has [employer] for insurance and her PCP is Dr. Artur Baez. EMR was reviewed. Per MD, pt with hx of gastric bypass and losing about 125 lbs but has since regained some of that weight and now admitted with severe and uncontrolled hypertension. Per MD, consulted with Cardiology and completed Echo and pt is medically stable to d/c home today with outpt Cardiology f/u. SW met bedside with pt and explained role and pt confirms that she lives in [place] alone but has supportive Sig Other and Dtr and young grandson live nearby. Pt is independent with ADL's at baseline and does not use DME and drives herself and works from home. Pt admits to not staying as active and exercising as would be beneficial. Pt does not anticipate any needs and plans to f/u with Frame Repairer after discharge and states she just called her Dtr who can transport around 1130. Plan: Patient to d/c home today via Dtr POV and outpt f/u with Cardiology and no further SW needs at this time. FRANCISCA Hector Discharge Planning/Care Management CM Discharge Assessment Start: 08/16/22 10:08 Freq: Status: Active Protocol: Document 08/16/22 10:08 (Rec: 08/16/22 10:09 [id number]) Discharge Planning Assessment Assigned Local Sales Associate FRANCISCA Georges DPOA/Assigned Designee Name informally Dtr Camila Contact Information [phone] Advance Directives? No Advance Directives on File No History Provided By Patient,Medical Record Has Patient been admitted in last 30 No days? Prior Living Arrangements RV Household Members significant other,children Type of transporation used prior to Drives own vehicle admit Independent with ADL's Yes Is patient alert and oriented? Yes Caregiver for Another No Barriers to Discharge No Discharge Plan Home Transportation Arrangement Dtr plans to provide transport home today around 1130 Referrals Initiated None needed Whiteboard Updated in Patient Room with Yes name and ext. # of Local Sales Associate Review Status In Process Please Provide Date Initial DC 08/16/22 Assessment Was Performed Next Review Type Continued Stay Review
--- NOTE | 2022-08-16 11:01 | PC.NURSE ---
Discharge Note Patient A&O, VSS, RA, no complaints of pain/discomfort. Discharge information reviewed with patient, all questions/concerns addressed. 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 PIV/TELE discontinued. Patient able to dress self and pack all belongings. Patient taken down to POV.
== END 2022-08-16 10:50 | disposition home or self-care (01) ==
LOC: ED 21:59 → AC 22:42
PROVIDERS: Admitting Provider Nurse Practitioner Family; Emergency Provider Emergency Medicine; PCP Family Medicine; Referring Provider Emergency Medicine; Visit Provider Nurse Practitioner Family
DX: I42.8 Other cardiomyopathies (principal); I16.0 Hypertensive urgency; I10 Essential (primary) hypertension; R07.9 Chest pain, unspecified; R51.9 Headache, unspecified; H53.8 Other visual disturbances; F17.210 Nicotine dependence, cigarettes, uncomplicated; E78.5 Hyperlipidemia, unspecified; E66.9 Obesity, unspecified; Z20.822 Contact with and (suspected) exposure to COVID-19
CPT/HCPCS: 36415; 70450; 71045; 71275; 74174; 80053; 80061; 82550; 83690; 83735; 84443; 84484; 85025; 85610; 85730; 87635; 93005; 93010; 93306; 96365; 96366; 96372; 96375; 99285; 99291; C9803; G0378; J1170; J1650; J2270; J2405; Q9967

== ENCOUNTER 2023-01-14 16:38 | Emergency (ER) | payer OTHER, SELFPAY ==
[2022-09-03 15:18] VITALS: BMI 40.1
[2023-01-14 16:58] VITALS: BP 196/111; PULSE 60; RESP 18; TEMP 36.5; O2SAT 98; BMI 39.4
--- NOTE | 2023-01-14 17:21 | ED_ITS ---
HPI - Extremity Injury (Lower) <Carolina Ruffin PA-C - Last Filed: 01/14/23 19:34> General Chief Complaint: Extremity Injury, Lower Stated Complaint: rt ankle injury Time Seen by Provider: 01/14/23 16:55 Source: patient Mode of arrival: Wheelchair History of Present Illness HPI Narrative: Patient is a 52-year-old female who injured her right ankle while at work. She states that her foot ended up in exaggerated dorsiflexion when caught between 2 boxes. She states she was able to walk on it the rest of the day, but it her right ankle is becoming more swollen. She notes tenderness to the back of her right ankle shows that her foot is swollen. She reports it has become more painful to put weight upon it. She denies any change to sensation. Patient's blood pressure is elevated today and she notes she did not take her blood pressure medicine last night or this evening. She denies any chest pain, visual disturbance or shortness of breath or headache. Related Data Home Medications Medication Instructions Recorded Confirmed acetaminophen 325 mg tablet 325 mg PO QID PRN Pain (Scale 08/15/22 09/03/22 Score 1-3) Previous Rx's Medication Instructions Recorded losartan 100 1 tab PO DAILY #90 tabs 10/02/22 mg-hydrochlorothiazide 25 mg tablet estradiol 0.1 mg/24 hr weekly 0.1 mg topical QWEEK #4 ea 01/11/23 transdermal patch Allergies Allergy/AdvReac Type Severity Reaction Status Date / Time amoxicillin [AMOXICILLIN] Allergy Severe SWELLING Verified 01/14/23 16:58 FACE, THROAT & HIVES ALL OVER. Penicillins [PENICILLINS] Allergy Severe RASH/ITCHING, Verified 01/14/23 16:58 TROUBLE BREATHING. diphenhydramine Allergy Mild SWELLING. Verified 01/14/23 16:58 [DIPHENHYDRAMINE] latex [LATEX] Allergy Mild RASH Verified 01/14/23 16:58 magnesium citrate AdvReac Unknown VOMITING Verified 01/14/23 16:58 [MAGNESIUM CITRATE] Review of Systems <Carolina Ruffin PA-C - Last Filed: 01/14/23 19:34> Review of Systems Narrative: Per HPI Patient History <Carolina Ruffin PA-C - Last Filed: 01/14/23 19:34> Medical History Chest pressure Fibromyalgia History of prediabetes Hypertension Palpitations Sleep apnea Surgical History H/O gastric bypass Social History household members: significant other and children Smoking Status: Former smoker alcohol intake: current Smoking Status: Former smoker alcohol intake frequency: holidays/special occasions only Substance Use Type: does not use Exam <Carolina Ruffin PA-C - Last Filed: 01/14/23 19:34> Initial Vital Signs Initial Vital Signs: Vital Signs Temperature 97.7 F 01/14/23 16:58 Pulse Rate 60 01/14/23 16:58 Respiratory Rate 18 01/14/23 16:58 Blood Pressure 196/111 H 01/14/23 16:58 Pulse Oximetry 98 01/14/23 16:58 Oxygen Delivery Method Room Air 01/14/23 16:58 GENERAL: 52 year old patient appears stated age. Well-developed patient, in no acute distress. HEAD: Atraumatic. Normocephalic. CARDIOVASCULAR: Regular rate and rhythm without murmurs, gallops, or rubs. RESPIRATORY: Clear to auscultation. Breath sounds equal bilaterally. No wheezes, rales, or rhonchi. EXTREMITIES: No bruising or erythema noted over right ankle, but patient is tender to direct palpation over the Achilles tendon just above calcaneus, dorsalis pedis pulses 2+ bilaterally. She demonstrates no pain with dorsiflexion or plantar flexion, but does note pain with plantar flexion against resistance. Chakraborty's test intact in Rt leg. No upper right knee pain to palpation NEURO: AOx3. SKIN: No rash or erythema of visible areas <Kye Lara DO - Last Filed: 01/15/23 07:04> Initial Vital Signs Initial Vital Signs: Vital Signs Temperature 97.7 F 01/14/23 16:58 Pulse Rate 60 01/14/23 16:58 Respiratory Rate 18 01/14/23 16:58 Blood Pressure 196/111 H 01/14/23 16:58 Pulse Oximetry 98 01/14/23 16:58 Oxygen Delivery Method Room Air 01/14/23 16:58 Course <Carolina Ruffin PA-C - Last Filed: 01/14/23 19:34> Orders Ordered: ED Orders 01/14/23 17:31 XR ankle RT min 3V Stat Vital Signs Vital signs: Vital Signs - 8 hr 01/14/23 16:58 Temperature 97.7 F Pulse Rate 60 Respiratory Rate 18 Blood Pressure 196/111 H Pulse Oximetry 98 Oxygen Delivery Method Room Air <Kye Lara DO - Last Filed: 01/15/23 07:04> Orders Ordered: ED Orders 01/14/23 17:31 XR ankle RT min 3V Stat Vital Signs Vital signs: Vital Signs - 8 hr 01/14/23 16:58 Temperature 97.7 F Pulse Rate 60 Respiratory Rate 18 Blood Pressure 196/111 H Pulse Oximetry 98 Oxygen Delivery Method Room Air MDM - Extremity Injury (Lower) <Carolina Ruffin PA-C - Last Filed: 01/14/23 19:34> Imaging Data X-ray right ankle: My Impression: Reviewed with Dr. James. No fracture or other abnormality noted on right ankle x-ray. [facility] Narrative Medical decision making narrative: Patient is a 52-year-old female presenting for evaluation of right ankle pain times 2 days Multiple etiologies for patient's symptoms considered including, but not limited to: Achilles tendonitis, Achilles tendon rupture, ankle sprain, ankle fracture Imaging reviewed: Right ankle x-ray reviewed with Dr. James which did not show any fracture or abnormality. Discussed with patient that her symptoms seem most consistent with an Achilles tendon strain. Recommend that patient keep right ankle in boot for the next several weeks unless directed otherwise by Orthopedic. I recommend that she follow up with [facility] or another orthopedic of her choice for further evaluation of healing of her right Achilles tendon. Please keep elevated while at rest and apply ice and take ibuprofen as needed for pain. I also recommend that patient take her blood pressure medicine as soon as she gets home and returned to the ER if she develops any visual disturbance, chest pain or shortness of or other concerning signs or symptoms. Findings and discharge diagnosis discussed with patient/family followed by verbalization of understanding Return precautions discussed with patient/family whom verbalize understanding of diagnosis Discharge Plan Departure Patient Disposition: Home Clinical Impression: Achilles tendinitis of right lower extremity Instructions: DI for Achilles Tendinopathy Activity Restrictions/Additional Instructions: X-ray results for right ankle did not show any abnormality. X-ray read by Radiology did not return yet, but after discussion, you are agreeable to go home. We have discussed that we will out fit with you with a boot to maintain structural support of your right ankle. Recommend that you follow up with Orthopedic for further treatment and management.. The number for [facility] orthopedics is [phone]. I recommend you call to make an appointment and follow up as well as follow up with your primary care provider to ensure continued monitoring of healing. You may may rest, ice and elevate your right ankle and take ibuprofen if no prior contraindication. Do not walk on right ankle without supportive boot. Prescriptions: No Action losartan-hydrochlorothiazide 100-25 mg tablet 1 tab PO DAILY Qty: 90 2RF estradiol 0.1 mg/24 hr patch weekly 0.1 mg topical QWEEK Qty: 4 2RF Rx Instructions: Apply 1 patch, once a week acetaminophen 325 mg Tablet 325 mg PO QID PRN (Reason: Pain (Scale Score 1-3)) Referrals: Artur Baez DO [Primary Care Provider] - Stand Alone Forms: Patient Portal/API <Kye Lara DO - Last Filed: 01/15/23 07:04> Cosign ED Attending Cosromeoature Attestation: I was immediately available in the department for consultation. This documentation has been reviewed and I agree with assessment and plan. Supervised by Kye Lara DO
--- NOTE | 2023-01-14 17:31 | DI.RAD.S_ITS ---
PROCEDURE: XR ANKLE RT MIN 3V INDICATIONS: Right ankle tenderness in posterior aspect TECHNIQUE: 3 views of the ankle were acquired. COMPARISON: [facility], , ANKLE 3 VIEWS LEFT, 01/20/2008, 10:23. FINDINGS: Bones: No fractures or dislocations. Ankle mortise is normally aligned. No suspicious bony lesions. Soft tissues: No tibiotalar joint effusion. Achilles tendon appears normal. IMPRESSION: No acute osseous abnormality. Dictated by: Giacomo Mondragon M.D. on 01/14/2023 at 20:08 Approved by: Giacomo Mondragon M.D. on 01/14/2023 at 20:10
[2023-01-14 19:21] VITALS: BP 196/98
--- NOTE | 2023-01-14 19:22 | PC.NURSE ---
pt bp is high. when asked about this patient states she takes 2 medications and missed her dose last night and this morning. provider aware
--- NOTE | 2023-01-14 19:41 | PC.NURSE ---
Walking boot applied to R foot, pt states it feels much better. Pt was given crutches and practiced safe usage.
== END 2023-01-14 19:35 | disposition home or self-care (01) ==
PROVIDERS: Emergency Provider Physician Assistant; PCP Family Medicine
DX: M76.61 Achilles tendinitis, right leg (principal); X50.9XXA Other and unspecified overexertion or strenuous movements or postures, initial encounter; Y99.0 Civilian activity done for income or pay
CPT/HCPCS: 73610; 99282; 99283

== ENCOUNTER → 2023-04-10 10:23 | Outpatient (CLI) | payer OTHER, SELFPAY ==
[2022-09-03 15:18] VITALS: BMI 40.1
--- NOTE | 2023-04-10 10:24 | DI.RAD.S_ITS ---
PROCEDURE: XR FOREARM RT 2V INDICATIONS: Forearm pain TECHNIQUE: 2 views of the forearm were acquired. COMPARISON: None. FINDINGS: Bones: No fractures or dislocations. No suspicious bony lesions. Soft tissues: No suspicious soft tissue calcifications or masses. IMPRESSION: No acute osseous abnormality. If pain persists with conservative management, consider repeat x-ray in 10-14 days or cross-sectional imaging. Dictated by: Curly Landry M.D. on 04/10/2023 at 10:45 Approved by: Curly Landry M.D. on 04/10/2023 at 10:46
--- NOTE | 2023-04-10 10:24 | DI.RAD.S_ITS ---
PROCEDURE: XR WRIST RT MIN 3V INDICATIONS: Wrist pain TECHNIQUE: 4 views of the wrist were acquired. COMPARISON: None. FINDINGS: Bones: Scaphoid fracture. No suspicious bony lesions. Mild 1st carpometacarpal osteoarthritic changes. Scaphoid view: Mildly displaced fracture through the waist of the scaphoid. Soft tissues: No suspicious soft tissue calcifications. IMPRESSION: Mildly displaced fracture through the waist of the scaphoid. Dictated by: Curly Landry M.D. on 04/10/2023 at 10:46 Approved by: Curly Landry M.D. on 04/10/2023 at 10:47
== END ==
PROVIDERS: PCP Family Medicine; Referring Provider Nurse Practitioner Family; Visit Provider Nurse Practitioner Family
DX: S62.001A Unspecified fracture of navicular [scaphoid] bone of right wrist, initial encounter for closed fracture (principal); M25.531 Pain in right wrist; W19.XXXA Unspecified fall, initial encounter
CPT/HCPCS: 73090; 73110

== ENCOUNTER 2023-05-27 09:54 | Emergency (ER) | payer OTHER, SELFPAY ==
[2022-09-03 15:18] VITALS: BMI 40.1
[2023-05-27 10:05] VITALS: BP 194/93; PULSE 78; RESP 18; TEMP 36.9; O2SAT 98; BMI 39.4
--- NOTE | 2023-05-27 10:18 | ED.GENADULT ---
HPI - General Adult General Chief complaint: Extremity Injury, Upper Stated complaint: fall, knee, and wrist pain Time Seen by Provider: 05/27/23 10:13 Source: patient Mode of arrival: Ambulatory History of Present Illness HPI narrative: Patient is a 52-year-old female. She has a known right wrist fracture. She is in a cast. Approximately 10 days ago she states she fell while she was at work. States she tripped over something on the ground. She fell forward landing on her wrist. She now has pain in both of her wrists. She also landed on her knees. Has pain in both of her knees but the right 1 is worse than the left. Did not hit her head. She has been ambulatory since the event. States she was just waiting to see whether or not things would improve and they have not. Related Data Home Medications Medication Instructions Recorded Confirmed acetaminophen 325 mg tablet 325 mg PO QID PRN Pain (Scale 08/15/22 04/10/23 Score 1-3) Previous Rx's Medication Instructions Recorded estradiol 0.1 mg/24 hr weekly 0.1 mg topical QWEEK #4 ea 01/11/23 transdermal patch amlodipine 2.5 mg tablet 2.5 mg PO BEDTIME #90 tabs 01/27/23 losartan 50 mg-hydrochlorothiazide 1 tab PO DAILY #90 tabs 01/27/23 12.5 mg tablet Allergies Allergy/AdvReac Type Severity Reaction Status Date / Time amoxicillin [AMOXICILLIN] Allergy Severe SWELLING Verified 04/10/23 10:11 FACE, THROAT & HIVES ALL OVER. Penicillins [PENICILLINS] Allergy Severe RASH/ITCHING, Verified 04/10/23 10:11 TROUBLE BREATHING. diphenhydramine Allergy Mild SWELLING. Verified 04/10/23 10:11 [DIPHENHYDRAMINE] latex [LATEX] Allergy Mild RASH Verified 04/10/23 10:11 magnesium citrate AdvReac Unknown VOMITING Verified 04/10/23 10:11 [MAGNESIUM CITRATE] Review of Systems Constitutional Constitutional: Reports system reviewed and no additional complaints, except as documented Musculoskeletal Musculoskeletal: Reports system reviewed and no additional complaints, except as documented Integumentary/Breasts Skin/Breast: Reports system reviewed and no additional complaints, except as documented Neurologic Neurologic: Reports system reviewed and no additional complaints, except as documented Hematologic/Lymphatic On Anticoagulants: No Patient History Medical History Obesity Sleep apnea Chest pressure Palpitations History of prediabetes Hypertension Fibromyalgia Surgical History H/O gastric bypass Social History household members: significant other and children Smoking Status: Former smoker alcohol intake: current Smoking Status: Former smoker alcohol intake frequency: holidays/special occasions only Substance Use Type: does not use Exam Initial Vital Signs Initial Vital Signs: Vital Signs Temperature 98.4 F 05/27/23 10:05 Pulse Rate 78 05/27/23 10:05 Respiratory Rate 18 05/27/23 10:05 Blood Pressure 194/93 H 05/27/23 10:05 Pulse Oximetry 98 05/27/23 10:05 Oxygen Delivery Method Room Air 05/27/23 10:05 HENMT Head: normal to inspection and normocephalic Resp Effort & Inspection: normal respiratory effort Cardio Rate: regular rate Pulses: radial pulses present on the left Skin General: no rashes or lesions noted Neuro General: patient alert and patient awake Extrem Other: Patient has a thumb spica splint on the left. She is tenderness to palpation of the left wrist and with tenderness with movement. She is tenderness along the anterior portion of the right knee. She is able to stand but is limping. Course Orders Ordered: ED Orders 05/27/23 10:17 XR knee RT 3V Stat XR wrist LT min 3V Stat XR wrist RT min 3V Stat Vital Signs Vital signs: Vital Signs - 8 hr 05/27/23 10:05 Temperature 98.4 F Pulse Rate 78 Respiratory Rate 18 Blood Pressure 194/93 H Pulse Oximetry 98 Oxygen Delivery Method Room Air Medical Decision Making Imaging Data Extremity x-ray #1: Radiologist's Impression: PROCEDURE: XR WRIST LT MIN 3V INDICATIONS: pain after fall TECHNIQUE: 4 views of the wrist were acquired. COMPARISON: None. FINDINGS: Bones: No acute fractures or dislocations. No suspicious bony lesions. Scaphoid appears to be intact on navicular view. Mild degenerative changes at the 1st carpometacarpal joint. Soft tissues: No suspicious soft tissue calcifications. IMPRESSION: No acute osseous abnormality. If clinical suspicion and/or symptoms persist, additional imaging with repeat plain films, or advanced imaging (e.g. CT, MRI) may be helpful for further assessment. Extremity x-ray #2: Radiologist's Impression: PROCEDURE: XR KNEE RT 3V INDICATIONS: pain after fall TECHNIQUE: 3 views of the knee were acquired. COMPARISON: None. FINDINGS: Bones: No acute fractures or dislocations. No suspicious bony lesions. Soft tissues: No joint effusion. No suspicious soft tissue calcifications. IMPRESSION: No acute osseous abnormality. If clinical suspicion and/or symptoms persist, additional imaging with repeat plain films, or advanced imaging (e.g. CT, MRI) may be helpful for further assessment. Extremity x-ray #3: Radiologist's Impression: PROCEDURE: XR WRIST RT MIN 3V INDICATIONS: pain after fall TECHNIQUE: 3 views of the wrist were acquired. COMPARISON: [facility], CT, CT WRIST RIGHT WITHOUT CONTRAST, 05/14/2023, 10:04. [facility], CR, XR WRIST RT MIN 3V, 04/10/2023, 10:29. FINDINGS: Bones: A fiberglass cast is present, which obscures fine bony detail. Transverse lucency of the scaphoid waist again seen. Osseous alignment does not appear significantly changed. No definite new osseous abnormality is seen. Soft tissues: No suspicious soft tissue calcifications. IMPRESSION: Scaphoid fracture again seen with unchanged alignment. MDM Narrative Medical decision making narrative: Patient does have a thumb spica splint on the right wrist in the x-ray shows the continued scaphoid fracture. There are no new fractures on the left wrist of the right knee. Will have the patient follow-up with her primary doctor for further evaluation. Discharge Plan Departure Patient Disposition: Home Clinical Impression: Closed fracture of scaphoid of right wrist, Left wrist sprain, Right knee sprain Activity Restrictions/Additional Instructions: I would continue to follow all of the instructions given to by the orthopedic surgeon with regard to your right wrist cast and fracture. Contact your primary doctor for a follow-up. You can continue to take Tylenol/ibuprofen for discomfort. Prescriptions: No Action estradiol 0.1 mg/24 hr patch weekly 0.1 mg topical QWEEK Qty: 4 2RF Rx Instructions: Apply 1 patch, once a week losartan-hydrochlorothiazide 50-12.5 mg tablet 1 tab PO DAILY Qty: 90 3RF amlodipine 2.5 mg tablet 2.5 mg PO BEDTIME Qty: 90 3RF acetaminophen 325 mg Tablet 325 mg PO QID PRN (Reason: Pain (Scale Score 1-3)) Referrals: Artur Baez, [Primary Care Provider] - Stand Alone Forms: Patient Portal/API
--- NOTE | 2023-05-27 11:12 | PC.NURSE ---
patient states her right knee is 8/10 pain when ambulating but that is intermittent. When its not really painful then it's a 0/10. She tried wearing a knee brace but then had to stop because the pain starting getting worse
[2023-05-27 11:29] VITALS: BP 182/100; PULSE 74; RESP 12; O2SAT 99
== END 2023-05-27 11:37 | disposition home or self-care (01) ==
PROVIDERS: Emergency Provider Emergency Medicine; PCP Family Medicine
DX: S62.001A Unspecified fracture of navicular [scaphoid] bone of right wrist, initial encounter for closed fracture (principal); S63.502A Unspecified sprain of left wrist, initial encounter; S83.91XA Sprain of unspecified site of right knee, initial encounter; W01.0XXA Fall on same level from slipping, tripping and stumbling without subsequent striking against object, initial encounter
CPT/HCPCS: 73110; 73562; 99281; 99283

== ENCOUNTER 2024-01-24 12:20 | Emergency (ER) | payer OTHER, SELFPAY ==
[2022-09-03 15:18] VITALS: BMI 40.1
[2024-01-24] VITALS (11 sets, daily range): BP systolic 174–221; BP diastolic 81–108; PULSE 58–73; RESP 17; TEMP 36.1; O2SAT 95–100; BMI 38.4
--- NOTE | 2024-01-24 12:38 | ED_ITS ---
HPI - General Adult General Chief complaint: Abdominal Pain Stated complaint: abd px, sent by PCP Time Seen by Provider: 01/24/24 12:29 Source: patient Mode of arrival: Ambulatory History of Present Illness HPI narrative: 53-year-old female with a history of Avni-en-Y gastric bypass in 2015 he was here for evaluation of epigastric abdominal pain that has been present for the past 3 days. She that has been persistent and worsening since then. Is having some nausea but no vomiting. No change in bowel habits. No fevers. She was take some ibuprofen on Wednesday because of the discomfort. She denies any fevers. No chest pain or shortness of breath. Related Data Home Medications Medication Instructions Recorded Confirmed estradiol 0.1 mg/24 hr weekly 0.1 mg topical QWEEK 11/09/23 11/09/23 transdermal patch Previous Rx's Medication Instructions Recorded amlodipine 2.5 mg tablet 2.5 mg PO BEDTIME #90 tabs 01/27/23 losartan 50 mg-hydrochlorothiazide 1 tab PO DAILY #90 tabs 01/27/23 12.5 mg tablet Disabled Parking Permit See Rx Instructions .Route 11/09/23 .COMPLEX #1 ea Allergies Allergy/AdvReac Type Severity Reaction Status Date / Time amoxicillin [AMOXICILLIN] Allergy Severe SWELLING Verified 01/24/24 12:25 FACE, THROAT & HIVES ALL OVER. Penicillins [PENICILLINS] Allergy Severe RASH/ITCHING, Verified 01/24/24 12:25 TROUBLE BREATHING. diphenhydramine Allergy Mild SWELLING. Verified 01/24/24 12:25 [DIPHENHYDRAMINE] latex [LATEX] Allergy Mild RASH Verified 01/24/24 12:25 magnesium citrate AdvReac Unknown VOMITING Verified 01/24/24 12:25 [MAGNESIUM CITRATE] Review of Systems Review of Systems Narrative: She HPI Patient History Medical History Obesity Sleep apnea Chest pressure Palpitations History of prediabetes Hypertension Fibromyalgia Surgical History H/O gastric bypass Social History household members: significant other and children Smoking Status: Former smoker alcohol intake: current Smoking Status: Former smoker alcohol intake frequency: holidays/special occasions only Substance Use Type: does not use Exam Initial Vital Signs Initial Vital Signs: Vital Signs Temperature 97 F L 01/24/24 12:25 Pulse Rate 73 01/24/24 12:25 Respiratory Rate 17 01/24/24 12:25 Blood Pressure 221/108 H 01/24/24 12:25 Pulse Oximetry 99 01/24/24 12:25 Oxygen Delivery Method Room Air 01/24/24 12:25 Const General: cooperative and comfortable HENMT Head: normal to inspection and normocephalic Resp Effort & Inspection: normal respiratory effort Auscultation: clear to auscultation bilaterally Cardio Rate: regular rate Rhythm: regular rhythm GI Inspection: normal to inspection and non-distended Skin General: no rashes or lesions noted Neuro General: patient alert and patient awake Course Orders Ordered: ED Orders 01/24/24 12:35 Urinalysis and Microscopic Stat Urine Culture Stat 01/24/24 12:38 CT abdomen pelvis w con Stat 01/24/24 12:53 Complete Blood Count AUTO DIFF Stat Comprehensive Metabolic Panel Stat Lipase Stat Discontinued Medications Sodium Chloride (Normal Saline 0.9%) 1,000 mls @ 1,000 mls/hr IV BOLUS ONE Stop: 01/24/24 13:29 Last Infusion: 01/24/24 14:58 Dose: Infused Documented By: Admin: 01/24/24 12:58 Dose: 1,000 mls/hr Documented By: FLORINDA Ondansetron HCl (Ondansetron 4 Mg/2 Ml Inj) 4 mg IV NOW ONE Stop: 01/24/24 12:39 Last Admin: 01/24/24 12:57 Dose: 4 mg Documented By: FLORINDA Pantoprazole Sodium (Pantoprazole 40 Mg Vial) 40 mg IV NOW ONE Stop: 01/24/24 12:31 Last Admin: 01/24/24 12:57 Dose: 40 mg Documented By: FLORINDA Vital Signs Vital signs: Vital Signs - 8 hr 01/24/24 12:25 Temperature 97 F L Pulse Rate 73 Respiratory Rate 17 Blood Pressure 221/108 H Pulse Oximetry 99 Oxygen Delivery Method Room Air Medical Decision Making Lab Data Lab results reviewed: Yes I reviewed the patient's lab results. 01/24/24 12:53 01/24/24 12:53 Labs: Lab Results 01/24/24 01/24/24 Range/Units 12:35 12:53 WBC 6.9 (4.5-11.0) X10^3/uL RBC 4.65 (4.0-5.2) X10^6/uL Hgb 13.3 (12.0-16.0) g/dL Hct 39.7 (36-46) % MCV 85.3 (80-100) fL MCH 28.5 (26-34) PG MCHC 33.5 (30-36) % RDW 13.7 (11.6-14.8) % Plt Count 185 (150-400) X10^3/uL Neut % (Auto) 69.6 (50-75) % Lymph % (Auto) 21.1 L (25-40) % [place] % (Auto) 7.3 (3-14) % Eos % (Auto) 1.5 L (2-4) % Baso % (Auto) 0.5 (0-2) % Neut # (Auto) 4800 (3069-8687) /uL Lymph # (Auto) 1500 (8558-9458) /uL [place] # (Auto) 500 (0-900) /uL Eos # (Auto) 100 (0-450) /uL Baso # (Auto) 0 (0-100) /uL Sodium 137 (137-145) mmol/L Potassium 4.1 (3.4-5.1) mmol/L Chloride 105 (98-107) mmol/L Carbon Dioxide 27 (22-32) mmol/L BUN 11 (7-17) mg/dL Creatinine 0.59 (0.52-1.04) mg/dL Estimated GFR > 60 (>60) mL/min BUN/Creatinine Ratio 18.6 (6-22) Glucose 92 (70-100) mg/dL Calcium 8.6 (8.4-10.2) mg/dL Total Bilirubin 0.7 (0.2-1.3) mg/dL AST 21 (14-36) IU/L ALT 20 (<35) IU/L Alkaline Phosphatase 76 (38-126) U/L Total Protein 6.1 L (6.3-8.2) g/dL Albumin 3.8 (3.5-5.0) g/dL Globulin 2.3 (1.7-4.1) g/dL Albumin/Globulin Ratio 1.7 (1.0-2.8) Lipase 159 (23-300) U/L Urine Color Yellow Urine Appearance Clear Urine pH 6.0 (4.5-8.0) Ur Specific [place] <=1.005 (1.000-1.035) Urine Protein Negative (Negative) Urine Glucose (UA) Negative (Negative) g/dL Urine Ketones Negative (NEGATIVE) Urine Occult Blood Negative (Negative) Urine Nitrate Negative (Negative) Urine Bilirubin Negative (NEGATIVE) Urine Urobilinogen 0.2 (0.2) E.U./dL Ur Leukocyte Esterase 1+ H (NEGATIVE) Urine RBC None seen (0-5/HPF) Urine WBC 5-10/hpf H (0-5/HPF) Ur Squamous Epith Cells 1-5 /hpf (0-5/HPF) Urine Bacteria Occasional (0-1) (None) Ur Culture Indicated? Specimen cultured Vol Urine Centrifuged 10ml (spun) Urine Dip Bedside Urine Glucose Negative Bedside Urine Bilirubin - Negative Bedside Urine Ketone - Negative Urine Specific [place] 1.005 Bedside Urine Occult Blood - Negative Bedside Urine pH 6.0 Bedside Urine Protein - Negative Bedside Urine Urobilinogen - Negative Bedside Urine Nitrite - Negative Bedside Urine Leukocytes +/- 15 Esterase Point of care testing: Urine Dip Bedside Urine Glucose Negative Bedside Urine Bilirubin - Negative Bedside Urine Ketone - Negative Urine Specific [place] 1.005 Bedside Urine Occult Blood - Negative Bedside Urine pH 6.0 Bedside Urine Protein - Negative Bedside Urine Urobilinogen - Negative Bedside Urine Nitrite - Negative Bedside Urine Leukocytes +/- [address] scan - abdomen/pelvis: Radiologist's Impression: PROCEDURE: CT ABDOMEN PELVIS W CON INDICATIONS: History of Avni-en-Y with epigastric abdominal pain TECHNIQUE: After the administration of intravenous contrast, axial sections acquired from the lung bases to the pubic symphysis. Coronal and sagittal reformats were performed. For radiation dose reduction, the following was used: automated exposure control, adjustment of mA and/or kV according to patient size. COMPARISON: [facility], CT, KIDNEY/ URETER/BLADDER, 03/07/2015, 19:15. [facility], CT, CT ANGIO ABDOMEN PELVIS, 08/14/2022, 19:16. FINDINGS: Image quality: Diagnostic. Lower Chest: No significant findings. ABDOMEN: Liver: 0.9 cm hypoattenuating lesion in the left hepatic lobe (12/2) is nonspecific and may represent a hemangioma. Gallbladder: Status post cholecystectomy. Biliary ducts: No biliary dilation. Pancreas: No ductal dilation. Spleen: Size is within normal limits. Adrenal Glands: Mild nodular thickening of the adrenal appears significantly changed. Kidneys and Ureters: No hydronephrosis. No solid mass. No complex renal cystic lesion which requires follow up. Stomach and Bowel: Postsurgical changes are seen from prior gastric bypass surgery. The distal most these appear patent. Normal colonic caliber, without significant wall thickening. Normal appendix. Peritoneum: No abnormal intraperitoneal fluid. No free air. Ventral Wall: No significant ventral hernia. Abdominal Nodes: No retroperitoneal or mesenteric adenopathy by size criteria. Vessels: Aorta and inferior vena cava are normal in size. PELVIS: Pelvic Organs: Status post hysterectomy. Bladder: No bladder wall thickening, accounting for underdistention. Pelvic Nodes: No enlarged lymph nodes. Miscellaneous: No inguinal hernias are seen. Bones: No aggressive osseous abnormality. IMPRESSION: 1. No acute abnormality identified in the abdomen or pelvis. 2. Postsurgical changes from Avni-en-Y gastric bypass with patent anastomoses. MDM Narrative Medical decision making narrative: Has a benign exam. Labs are unremarkable. Afebrile. CT scan shows no signs of perforations, internal hernias, obstructions. She potentially does have a gastric ulcer. Discuss this with her. Will start her on a course of a proton pump inhibitor. Advised that she not take the anti-inflammatories by mouth. She can take Tylenol. She was given return precautions. She expressed understanding and agreement. Discharge Plan Departure Patient Disposition: Home Clinical Impression: Abdominal pain Instructions: DI for Abdominal Pain-Adult Activity Restrictions/Additional Instructions: Your workup here in the emergency department is very reassuring. I do recommend that you avoid taking the oral anti-inflammatory such as Motrin/ibuprofen/Naprosyn/Advil. You can take Tylenol. I do recommend that you start on a regimen of a class of medicine called a proton pump inhibitor. Examples of these include Nexium/omeprazole/esomeprazole/Prilosec. You can purchase these [id number]. Return to the emergency department for new or worsening symptoms. Prescriptions: No Action losartan-hydrochlorothiazide 50-12.5 mg tablet 1 tab PO DAILY Qty: 90 3RF amlodipine 2.5 mg tablet 2.5 mg PO BEDTIME Qty: 90 3RF estradiol 0.1 mg/24 hr patch weekly 0.1 mg topical QWEEK Rx Instructions: Apply 1 patch, once a week Disabled Parking Permit See Rx Instructions .ROUTE .COMPLEX Qty: 1 0RF Rx Instructions: I find this patient to be medically disabled and qualified for Disabled Parking as indicated, and signed, on the accompanying Disabled Parking Application for Individuals ; Referrals: Artur Baez, [Primary Care Provider] - Stand Alone Forms: Patient Portal/API
[2024-01-24] MEDS: PANTOPRAZOLE 40 MG VIAL IV (12:57)
[2024-01-24] MEDS: ONDANSETRON 4 MG/2 ML INJ IV (12:57)
[2024-01-24] MEDS: SODIUM CHLORIDE 0.9% 1,000 ML 1000 ML IV (12:58)
[2024-01-24 13:09] LABS: Appearance Urine UA CLEAR; Bilirubin Urine UA NEGATIVE (NEGATIVE); Color Urine UA YELLOW; Glucose Urine UA NEGATIVE (Negative); Ketones Urine UA NEGATIVE (NEGATIVE); Leukocyte Esterase Urine UA 1+ (NEGATIVE); Nitrite Urine UA NEGATIVE (Negative); Occult Blood Urine UA NEGATIVE (Negative); Protein Urine UA NEGATIVE (Negative); Specific Gravity Urine UA <=1.005 (1.000-1.035); Urobilinogen Urine UA 0.2 E.U./dL (0.2)
[2024-01-24 13:17] LABS: Add Manual Diff / Slide Review NO; Basophils Absolute Auto 0 /uL (0-100); Basophils Percent Auto 0.5 % (0-2); Eosinophils Absolute Auto 100 /uL (0-450); Eosinophils Percent Auto 1.5 % (2-4); Hematocrit 39.7 % (36-46); Hemoglobin 13.3 g/dL (12.0-16.0); Lymphocytes Absolute Auto 1500 /uL (1100-4500); Lymphocytes Percent Auto 21.1 % (25-40); Mean Corpuscular HGB Conc 33.5 % (30-36); Mean Corpuscular Hemoglobin 28.5 PG (26-34); Mean Corpuscular Volume 85.3 fL (80-100); Monocytes Absolute Auto 500 /uL (0-900); Monocytes Percent Auto 7.3 % (3-14); Neutrophils Absolute Auto 4800 /uL (1500-7000); Neutrophils Percent Auto 69.6 % (50-75); Platelet Count 185 X10^3/uL (150-400); Red Blood Cell Count 4.65 X10^6/uL (4.0-5.2); Red Cell Distribution Width 13.7 % (11.6-14.8); White Blood Cell Count 6.9 X10^3/uL (4.5-11.0)
[2024-01-24 13:30] LABS: Bacteria Urine Occasional (0-1); RBC Urine None Seen (0-5/HPF); Squamous Epithelial Cell Urine 1-5 /HPF (0-5/HPF); Urine Volume 10mL (spun); WBC Urine 5-10/HPF (0-5/HPF)
[2024-01-24 13:31] LABS: Culture Indicated Urine Specimen Cultured
[2024-01-24 14:08] LABS: Alanine Aminotransferase 20 IU/L (<35); Albumin 3.8 g/dL (3.5-5.0); Albumin Globulin Ratio 1.7 (1.0-2.8); Alkaline Phosphatase 76 U/L (38-126); Aspartate Aminotransferase 21 IU/L (14-36); BUN Creatinine Ratio 18.6 (6-22); Bilirubin Total 0.7 mg/dL (0.2-1.3); Blood Urea Nitrogen 11 mg/dL (7-17); Calcium 8.6 mg/dL (8.4-10.2); Carbon Dioxide 27 mmol/L (22-32); Chloride 105 mmol/L (98-107); Estimated Glomerular Filt Rate > 60 mL/min (>60); Globulin 2.3 g/dL (1.7-4.1); Glucose 92 mg/dL (70-100); HEMOLYSIS < 15 (0-50); Lipase 159 U/L (23-300); Potassium 4.1 mmol/L (3.4-5.1); Sodium 137 mmol/L (137-145); Total Protein 6.1 g/dL (6.3-8.2)
== END 2024-01-24 15:30 | disposition home or self-care (01) ==
PROVIDERS: Emergency Provider Emergency Medicine; Family Provider Family Medicine; PCP Family Medicine
DX: R10.13 Epigastric pain (principal)
CPT/HCPCS: 74177; 80053; 81001; 81003; 83690; 85025; 87077; 87086; 87186; 96361; 96374; 96375; 99283; 99284; J2405; J2470; Q9967

== ENCOUNTER 2024-03-02 16:12 | Emergency (ER) | payer OTHER, SELFPAY ==
[2022-09-03 15:18] VITALS: BMI 40.1
[2024-03-02] VITALS (11 sets, daily range): BP systolic 138–177; BP diastolic 68–94; PULSE 58–85; RESP 15–20; TEMP 36.6; O2SAT 95–98; BMI 36.7
--- NOTE | 2024-03-02 16:26 | EKG_ITS ---
[place] [id number] [place] [id number] Test Date: 2024-03-02 Pat Name: Imani Almanza Department: 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
--- NOTE | 2024-03-02 16:29 | DI.RAD.S_ITS ---
PROCEDURE: XR CHEST 1V INDICATIONS: chest pain TECHNIQUE: One view of the chest was acquired. COMPARISON: [facility], CR, XR CHEST 1V, 08/14/2022, 18:42. [facility], CR, XR CHEST 1V, 04/06/2022, 8:25. FINDINGS: Surgical changes and devices: None. Lungs and pleura: Lungs are clear. No pleural effusions or pneumothorax. Mediastinum: Mediastinal contours appear normal. Heart size is normal. Bones and chest wall: No suspicious bony lesions. Overlying soft tissues appear unremarkable. IMPRESSION: No acute cardiopulmonary abnormality is seen. Approved by: Humberto Castle M.D. on 03/02/2024 at 17:13
--- NOTE | 2024-03-02 16:39 | ED_ITS ---
HPI - Chest Pain <Mariano Saavedra MD - Last Filed: 03/10/24 07:59> General Chief Complaint: Chest Pain Stated Complaint: chest pain Time Seen by Provider: 03/02/24 16:18 Source: patient Mode of arrival: Ambulatory Limitations: no limitations History of Present Illness HPI narrative: Patient here for intermittent substernal sharp chest pain 8/10 that lasted about 6 minutes for the past couple of weeks. She has had associated diaphoresis and dyspnea. Has had exertional chest pain as well. Pain is nonreproducible. No recent illness cough cold or congestion. Patient does have history hypertension. Has extended family history of coronary disease. Patient seen by [facility] cardiology, Dr. Barragan, September 2022 for chest pain and palpitations. Did have echocardiogram. Last heart catheterization 2014. Patient had allergic reaction to a chemical stress test in [place]. Patient has been off her blood pressure medication for the past 2 weeks due to schedule changes with work. 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 Related Data Previous Rx's Medication Instructions Recorded Disabled Parking Permit See Rx Instructions .Route 11/09/23 .COMPLEX #1 ea amlodipine 2.5 mg tablet 2.5 mg PO BEDTIME #90 tabs 03/06/24 Allergies Allergy/AdvReac Type Severity Reaction Status Date / Time amoxicillin [AMOXICILLIN] Allergy Severe SWELLING Verified 01/24/24 12:25 FACE, THROAT & HIVES ALL OVER. Penicillins [PENICILLINS] Allergy Severe RASH/ITCHING, Verified 01/24/24 12:25 TROUBLE BREATHING. diphenhydramine Allergy Mild SWELLING. Verified 01/24/24 12:25 [DIPHENHYDRAMINE] latex [LATEX] Allergy Mild RASH Verified 01/24/24 12:25 magnesium citrate AdvReac Unknown VOMITING Verified 01/24/24 12:25 [MAGNESIUM CITRATE] Review of Systems <Mariano Saavedra MD - Last Filed: 03/10/24 07:59> Review of Systems Narrative: GENERAL: negative chills, fatigue, malaise, fever, positive sweats. HEENT: negative sinus pain, ear pain, sore throat RESPIRATORY: negative dyspnea, cough CARDIOVASCULAR: Positive chest pain, palpitations GASTROINTESTINAL: negative nausea, vomiting, abdominal pain : negative dysuria, frequency, hematuria MUSCULOSKELETAL: negative muscle or bony pain SKIN: negative rash, skin lesions NEUROLOGIC: negative weakness, numbness ROS Unobtainable: All systems reviewed & are unremarkable except as noted in HPI and below Patient History <Mariano Saavedra MD - Last Filed: 03/10/24 07:59> Medical History Obesity Sleep apnea Chest pressure Palpitations History of prediabetes Hypertension Fibromyalgia Surgical History H/O gastric bypass Social History household members: significant other and children Smoking Status: Current every day smoker alcohol intake: current Smoking Status: Current every day smoker tobacco type: cigarettes alcohol intake frequency: holidays/special occasions only Substance Use Type: does not use Exam <Mariano Saavedra MD - Last Filed: 03/10/24 07:59> Narrative Exam Narrative: GENERAL: in no distress, not toxic not dyspneic HEAD: Normocephalic. EYES: Pupils equal round ENT: Mucous membranes moist. NECK: Trachea midline. CARDIOVASCULAR: Regular rate and rhythm RESPIRATORY: Clear to auscultation. Breath sounds equal bilaterally. No wheezes, rales, or rhonchi. GASTROINTESTINAL: Abdomen soft, non-tender EXTREMITIES: No gross deformities. BACK: No flank tenderness. NEURO: AOx4. SKIN: Warm and dry PSYCH: Not anxious, is cooperative Initial Vital Signs Initial Vital Signs: Vital Signs Temperature 98 F 03/02/24 16:20 Pulse Rate 74 03/02/24 16:20 Respiratory Rate 19 03/02/24 16:20 Blood Pressure 177/84 H 03/02/24 16:20 Pulse Oximetry 98 03/02/24 16:20 Oxygen Delivery Method Room Air 03/02/24 16:20 <Kingsley Harris DO - Last Filed: 03/02/24 20:53> Initial Vital Signs Initial Vital Signs: Vital Signs Temperature 98 F 03/02/24 16:20 Pulse Rate 74 03/02/24 16:20 Respiratory Rate 19 03/02/24 16:20 Blood Pressure 177/84 H 03/02/24 16:20 Pulse Oximetry 98 03/02/24 16:20 Oxygen Delivery Method Room Air 03/02/24 16:20 Course <Mariano Saavedra MD - Last Filed: 03/10/24 07:59> Orders Ordered: Discontinued Medications Amlodipine Besylate (Amlodipine 5 Mg Tablet) 2.5 mg PO NOW ONE Stop: 03/02/24 17:38 Last Admin: 03/02/24 17:51 Dose: 2.5 mg Documented By: TONNY Aspirin (Aspirin 81 Mg Chew Tab) 324 mg PO NOW ONE Stop: 03/02/24 16:52 Last Admin: 03/02/24 17:00 Dose: 324 mg Documented By: TONNY Ondansetron HCl (Ondansetron 4 Mg Odt) 4 mg SL NOW ONE Stop: 03/02/24 17:58 Last Admin: 03/02/24 18:01 Dose: 4 mg Documented By: LAURENT Vital Signs Vital signs: Vital Signs - 8 hr 03/02/24 16:20 03/02/24 16:42 03/02/24 16:49 Temperature 98 F Pulse Rate 74 64 Respiratory Rate 19 19 Blood Pressure 177/84 H 167/89 H Pulse Oximetry 98 97 Oxygen Delivery Method Room Air 03/02/24 17:00 03/02/24 17:00 03/02/24 17:30 Temperature Pulse Rate 58 L 61 Respiratory Rate 16 15 Blood Pressure 147/76 H Pulse Oximetry 97 95 Oxygen Delivery Method 03/02/24 18:00 03/02/24 18:00 03/02/24 18:30 Temperature Pulse Rate 62 68 Respiratory Rate 20 19 Blood Pressure 138/71 Pulse Oximetry 97 98 Oxygen Delivery Method 03/02/24 18:31 03/02/24 18:31 03/02/24 19:00 Temperature Pulse Rate 70 Respiratory Rate Blood Pressure 169/94 H 145/68 H Pulse Oximetry 98 Oxygen Delivery Method 03/02/24 19:00 03/02/24 19:30 03/02/24 19:30 Temperature Pulse Rate 85 74 Respiratory Rate Blood Pressure 141/76 H Pulse Oximetry 97 95 Oxygen Delivery Method 03/02/24 20:00 Temperature Pulse Rate 62 Respiratory Rate 20 Blood Pressure Pulse Oximetry 95 Oxygen Delivery Method <Kingsley Harris DO - Last Filed: 03/02/24 20:53> Orders Ordered: Discontinued Medications Amlodipine Besylate (Amlodipine 5 Mg Tablet) 2.5 mg PO NOW ONE Stop: 03/02/24 17:38 Last Admin: 03/02/24 17:51 Dose: 2.5 mg Documented By: TONNY Aspirin (Aspirin 81 Mg Chew Tab) 324 mg PO NOW ONE Stop: 03/02/24 16:52 Last Admin: 03/02/24 17:00 Dose: 324 mg Documented By: TONNY Ondansetron HCl (Ondansetron 4 Mg Odt) 4 mg SL NOW ONE Stop: 03/02/24 17:58 Last Admin: 03/02/24 18:01 Dose: 4 mg Documented By: LAURENT Vital Signs Vital signs: Vital Signs - 8 hr 03/02/24 16:20 03/02/24 16:42 03/02/24 16:49 Temperature 98 F Pulse Rate 74 64 Respiratory Rate 19 19 Blood Pressure 177/84 H 167/89 H Pulse Oximetry 98 97 Oxygen Delivery Method Room Air 03/02/24 17:00 03/02/24 17:00 03/02/24 17:30 Temperature Pulse Rate 58 L 61 Respiratory Rate 16 15 Blood Pressure 147/76 H Pulse Oximetry 97 95 Oxygen Delivery Method 03/02/24 18:00 03/02/24 18:00 03/02/24 18:30 Temperature Pulse Rate 62 68 Respiratory Rate 20 19 Blood Pressure 138/71 Pulse Oximetry 97 98 Oxygen Delivery Method 03/02/24 18:31 03/02/24 18:31 03/02/24 19:00 Temperature Pulse Rate 70 Respiratory Rate Blood Pressure 169/94 H 145/68 H Pulse Oximetry 98 Oxygen Delivery Method 03/02/24 19:00 03/02/24 19:30 03/02/24 19:30 Temperature Pulse Rate 85 74 Respiratory Rate Blood Pressure 141/76 H Pulse Oximetry 97 95 Oxygen Delivery Method 03/02/24 20:00 Temperature Pulse Rate 62 Respiratory Rate 20 Blood Pressure Pulse Oximetry 95 Oxygen Delivery Method MDM - Chest Pain <Mariano Saavedra MD - Last Filed: 03/10/24 07:59> Lab Data 03/02/24 16:46 03/02/24 16:46 Labs: Lab Results 03/02/24 03/02/24 03/02/24 Range/Units 16:46 17:28 19:21 WBC 6.9 (4.5-11.0) X10^3/uL RBC 4.37 (4.0-5.2) X10^6/uL Hgb 12.6 (12.0-16.0) g/dL Hct 37.7 (36-46) % MCV 86.3 (80-100) fL MCH 28.9 (26-34) PG MCHC 33.6 (30-36) % RDW 14.8 (11.6-14.8) % Plt Count 203 (150-400) X10^3/uL Neut % (Auto) 63.0 (50-75) % Lymph % (Auto) 27.1 (25-40) % Larue % (Auto) 8.3 (3-14) % Eos % (Auto) 1.1 L (2-4) % Baso % (Auto) 0.5 (0-2) % Neut # (Auto) 4300 (8003-1681) /uL Lymph # (Auto) 1900 (6286-5821) /uL Larue # (Auto) 600 (0-900) /uL Eos # (Auto) 100 (0-450) /uL Baso # (Auto) 0 (0-100) /uL Sodium 139 (137-145) mmol/L Potassium 4.5 (3.4-5.1) mmol/L Chloride 105 (98-107) mmol/L Carbon Dioxide 26 (22-32) mmol/L BUN 17 (7-17) mg/dL Creatinine 0.73 (0.52-1.04) mg/dL Estimated GFR > 60 (>60) mL/min BUN/Creatinine Ratio 23.3 H (6-22) Glucose 90 (70-100) mg/dL Calcium 9.1 (8.4-10.2) mg/dL Total Bilirubin 0.6 (0.2-1.3) mg/dL AST 22 (14-36) IU/L ALT 24 (<35) IU/L Alkaline Phosphatase 72 (38-126) U/L Total Creatine Kinase 67 60 (30-135) U/L Troponin I < 0.012 < 0.012 (0.01-0.034) ng/mL Total Protein 6.5 (6.3-8.2) g/dL Albumin 4.1 (3.5-5.0) g/dL Globulin 2.4 (1.7-4.1) g/dL Albumin/Globulin Ratio 1.7 (1.0-2.8) Acetaminophen < 10 (10-30) ug/mL Chlamy pneumoniae PCR Not detected (Not Detect) Adenovirus (PCR) Not detected (Not Detect) B.parapertussis DNA PCR Not detected (Not Detecte) Coronavirus OC43 (PCR) Not detected (Not Detect) Coronavirus HKU1 (PCR) Not detected (Not Detect) Coronavirus 229E (PCR) Not detected (Not Detect) SARS-CoV-2 (PCR) Not detected (Not Detecte) Coronavirus NL63 (PCR) Not detected (Not Detect) Human Metapneumovir PCR Not detected (Not Detect) Influenza Type A (PCR) Not detected (Not Detect) Influenza Type B (PCR) Not detected (Not Detect) M. pneumoniae (PCR) Not detected (Not Detect) Parainfluenza 1 (PCR) Not detected (Not Detect) Parainfluenza 2 (PCR) Not detected (Not Detect) Parainfluenza 3 (PCR) Not detected (Not Detect) Parainfluenza 4 (PCR) Not detected (Not Detect) RSV (PCR) Not detected (Not Detect) Entero/Rhino (PCR) Not detected (Not Detect) Imaging Data Chest x-ray: Radiologist's Impression: [place] [id number] XRay Report Signed Patient: Imani Almanza MR#: [id number] : 1970 Acct:[id number] Age/Sex: 53 / F Date of Service: 03/02/24 Loc: ED Accession Number: [id number] Procedure: XR chest 1V Ordering Provider: Mariano Saavedra MD PROCEDURE: XR CHEST 1V INDICATIONS: chest pain TECHNIQUE: One view of the chest was acquired. COMPARISON: [facility], , XR CHEST 1V, 08/14/2022, 18:42. [facility], , XR CHEST 1V, 04/06/2022, 8:25. FINDINGS: Surgical changes and devices: None. Lungs and pleura: Lungs are clear. No pleural effusions or pneumothorax. Mediastinum: Mediastinal contours appear normal. Heart size is normal. Bones and chest wall: No suspicious bony lesions. Overlying soft tissues appear unremarkable. IMPRESSION: No acute cardiopulmonary abnormality is seen. Approved by: Humberto Castle M.D. on 03/02/2024 at 17:13 [facility] Narrative Medical decision making narrative: Patient here for intermittent substernal sharp chest pain 8/10 that lasted about 6 minutes for the past couple of weeks. She has had associated diaphoresis and dyspnea. Has had exertional chest pain as well. Pain is nonreproducible. No recent illness cough cold or congestion. Patient does have history hypertension. Has extended family history of coronary disease. Patient seen by [facility] cardiology, Dr. Barragan, September 2022 for chest pain and palpitations. Did have echocardiogram. Last heart catheterization 2014. Patient had allergic reaction to a chemical stress test in [place]. Patient has been off her blood pressure medication for the past 2 weeks due to schedule changes with work. 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 After history and exam CBC CMP troponin EKG chest x-ray [facility] Medical records reviewed: September 16, 2022 Dr. Barragan cardiology office visit notes Differential considered: Includes but not limited to STEMI non-STEMI ACS atypical chest pain Lab Test results independently reviewed as above. Pertinent findings: WBC 6.9 hemoglobin 12.6 sodium 139 potassium 4.5 BUN 17 creatinine 0.73, troponin less than 0.012 Independently reviewed EKG normal sinus rhythm normal EKG rate [address] elevation or depression Imaging studies independently reviewed: Chest x-ray no acute finding Consultations: 5:15 p.m.. Spoke with Cardiology, dr goodman, on-call for patient's manager music Dr. Barragan, at this time repeat troponin at 7:00 p.m. and if normal discharge home and stress test can be done outpatient. Treatments: Aspirin Re-evaluations: 5:30 p.m.. Updated patient results. Currently chest pain- free. She does understand will need repeat troponin at 7:00 p.m.. I have spoken with her cardiology team, she will follow up for outpatient stress test if the 2nd troponin is normal. Patient called her sister at home and found her amlodipine 2.5 mg once a day. This will be ordered now. She has been off of it for the past 2 weeks Discussion: 6:00 p.m.. Quentin: Sign out to Dr Harris, repeat troponin 7:00 p.m.. I have spoken with cardiology services and may discharge home if negative. They will do outpatient stress test with patient. Patient to call the office. Dr. Barragan, cardiology with [facility] Diagnosis: Chest pain, noncompliance <Kingsley HarrisDO - Last Filed: 03/02/24 20:53> Lab Data Labs: Lab Results 03/02/24 03/02/24 03/02/24 Range/Units 16:46 17:28 19:21 WBC 6.9 (4.5-11.0) X10^3/uL RBC 4.37 (4.0-5.2) X10^6/uL Hgb 12.6 (12.0-16.0) g/dL Hct 37.7 (36-46) % MCV 86.3 (80-100) fL MCH 28.9 (26-34) PG MCHC 33.6 (30-36) % RDW 14.8 (11.6-14.8) % Plt Count 203 (150-400) X10^3/uL Neut % (Auto) 63.0 (50-75) % Lymph % (Auto) 27.1 (25-40) % Larue % (Auto) 8.3 (3-14) % Eos % (Auto) 1.1 L (2-4) % Baso % (Auto) 0.5 (0-2) % Neut # (Auto) 4300 (0678-7108) /uL Lymph # (Auto) 1900 (2987-6568) /uL Larue # (Auto) 600 (0-900) /uL Eos # (Auto) 100 (0-450) /uL Baso # (Auto) 0 (0-100) /uL Sodium 139 (137-145) mmol/L Potassium 4.5 (3.4-5.1) mmol/L Chloride 105 (98-107) mmol/L Carbon Dioxide 26 (22-32) mmol/L BUN 17 (7-17) mg/dL Creatinine 0.73 (0.52-1.04) mg/dL Estimated GFR > 60 (>60) mL/min BUN/Creatinine Ratio 23.3 H (6-22) Glucose 90 (70-100) mg/dL Calcium 9.1 (8.4-10.2) mg/dL Total Bilirubin 0.6 (0.2-1.3) mg/dL AST 22 (14-36) IU/L ALT 24 (<35) IU/L Alkaline Phosphatase 72 (38-126) U/L Total Creatine Kinase 67 60 (30-135) U/L Troponin I < 0.012 < 0.012 (0.01-0.034) ng/mL Total Protein 6.5 (6.3-8.2) g/dL Albumin 4.1 (3.5-5.0) g/dL Globulin 2.4 (1.7-4.1) g/dL Albumin/Globulin Ratio 1.7 (1.0-2.8) Acetaminophen < 10 (10-30) ug/mL Chlamy pneumoniae PCR Not detected (Not Detect) Adenovirus (PCR) Not detected (Not Detect) B.parapertussis DNA PCR Not detected (Not Detecte) Coronavirus OC43 (PCR) Not detected (Not Detect) Coronavirus HKU1 (PCR) Not detected (Not Detect) Coronavirus 229E (PCR) Not detected (Not Detect) SARS-CoV-2 (PCR) Not detected (Not Detecte) Coronavirus NL63 (PCR) Not detected (Not Detect) Human Metapneumovir PCR Not detected (Not Detect) Influenza Type A (PCR) Not detected (Not Detect) Influenza Type B (PCR) Not detected (Not Detect) M. pneumoniae (PCR) Not detected (Not Detect) Parainfluenza 1 (PCR) Not detected (Not Detect) Parainfluenza 2 (PCR) Not detected (Not Detect) Parainfluenza 3 (PCR) Not detected (Not Detect) Parainfluenza 4 (PCR) Not detected (Not Detect) RSV (PCR) Not detected (Not Detect) Entero/Rhino (PCR) Not detected (Not Detect) MDM Narrative Medical decision making narrative: Patient here for intermittent substernal sharp chest pain 8/10 that lasted about 6 minutes for the past couple of weeks. She has had associated diaphoresis and dyspnea. Has had exertional chest pain as well. Pain is nonreproducible. No recent illness cough cold or congestion. Patient does have history hypertension. Has extended family history of coronary disease. Patient seen by [facility] cardiology, Dr. Barragan, September 2022 for chest pain and palpitations. Did have echocardiogram. Last heart catheterization 2014. Patient had allergic reaction to a chemical stress test in [place]. Patient has been off her blood pressure medication for the past 2 weeks due to schedule changes with work. 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 After history and exam CBC CMP troponin EKG chest x-ray [facility] Medical records reviewed: September 16, 2022 Dr. Barragan cardiology office visit notes Differential considered: Includes but not limited to STEMI non-STEMI ACS atypical chest pain Lab Test results independently reviewed as above. Pertinent findings: WBC 6.9 hemoglobin 12.6 sodium 139 potassium 4.5 BUN 17 creatinine 0.73, troponin less than 0.012 Independently reviewed EKG normal sinus rhythm normal EKG rate [address] elevation or depression Imaging studies independently reviewed: Chest x-ray no acute finding Consultations: 5:15 p.m.. Spoke with Cardiology, dr goodman, on-call for patient's manager music Dr. Barragan, at this time repeat troponin at 7:00 p.m. and if normal discharge home and stress test can be done outpatient. Treatments: Aspirin Re-evaluations: 5:30 p.m.. Updated patient results. Currently chest pain- free. She does understand will need repeat troponin at 7:00 p.m.. I have spoken with her cardiology team, she will follow up for outpatient stress test if the 2nd troponin is normal. Patient called her sister at home and found her amlodipine 2.5 mg once a day. This will be ordered now. She has been off of it for the past 2 weeks Discussion: 6:00 p.m.. Quentin: Sign out to Dr Harris, repeat troponin 7:00 p.m.. I have spoken with cardiology services and may discharge home if negative. They will do outpatient stress test with patient. Patient to call the office. Dr. Barragan, cardiology with [facility] Diagnosis: Chest pain, noncompliance Dr harris: Received turned over. Review patient's history and physical exam and workup up to this point. Patient now has a 2- troponins. Nonischemic EKG. Chest x-ray is unremarkable. Low suspicion for ACS however the patient should follow-up with her primary care doctor to discuss the indications stress test. I did discuss this with. Patient was given return precautions. Discharge Plan Departure Patient Disposition: Home Clinical Impression: Chest pain Qualifiers: Chest pain type: unspecified Qualified Code(s): R07.9 - Chest pain, unspecified Instructions: DI for Chest Pain Activity Restrictions/Additional Instructions: I do recommend that you contact your primary follow-up to discuss the indications for an outpatient stress test. Continue home medications as directed. Return to the emergency department for new or worsening symptoms. Prescriptions: No Action amlodipine 2.5 mg tablet 2.5 mg PO BEDTIME Qty: 90 0RF Disabled Parking Permit See Rx Instructions .ROUTE .COMPLEX Qty: 1 0RF Rx Instructions: I find this patient to be medically disabled and qualified for Disabled Parking as indicated, and signed, on the accompanying Disabled Parking Application for Individuals ; Referrals: Artur Baez, [Primary Care Provider] - Stand Alone Forms: Patient Portal/API
--- NOTE | 2024-03-02 16:46 | PC.NURSE ---
Patient reports taking 2 500mg extra strength tylenol every 2 hours for several weeks, patient reports not being aware that there was a limit to how much you could take. This RN and RN Valente educated patient about max doses of tylenol
[2024-03-02] MEDS: ASPIRIN 81 MG CHEW TAB 324 MG PO (17:00)
[2024-03-02 17:02] LABS: Add Manual Diff / Slide Review NO; Basophils Absolute Auto 0 /uL (0-100); Basophils Percent Auto 0.5 % (0-2); Eosinophils Absolute Auto 100 /uL (0-450); Eosinophils Percent Auto 1.1 % (2-4); Hematocrit 37.7 % (36-46); Hemoglobin 12.6 g/dL (12.0-16.0); Lymphocytes Absolute Auto 1900 /uL (1100-4500); Lymphocytes Percent Auto 27.1 % (25-40); Mean Corpuscular HGB Conc 33.6 % (30-36); Mean Corpuscular Hemoglobin 28.9 PG (26-34); Mean Corpuscular Volume 86.3 fL (80-100); Monocytes Absolute Auto 600 /uL (0-900); Monocytes Percent Auto 8.3 % (3-14); Neutrophils Absolute Auto 4300 /uL (1500-7000); Platelet Count 203 X10^3/uL (150-400); Red Blood Cell Count 4.37 X10^6/uL (4.0-5.2); Red Cell Distribution Width 14.8 % (11.6-14.8); White Blood Cell Count 6.9 X10^3/uL (4.5-11.0)
[2024-03-02 17:10] LABS: Acetaminophen < 10 ug/mL (10-30); Alanine Aminotransferase 24 IU/L (<35); Albumin 4.1 g/dL (3.5-5.0); Albumin Globulin Ratio 1.7 (1.0-2.8); Alkaline Phosphatase 72 U/L (38-126); Aspartate Aminotransferase 22 IU/L (14-36); BUN Creatinine Ratio 23.3 (6-22); Bilirubin Total 0.6 mg/dL (0.2-1.3); Blood Urea Nitrogen 17 mg/dL (7-17); Calcium 9.1 mg/dL (8.4-10.2); Carbon Dioxide 26 mmol/L (22-32); Chloride 105 mmol/L (98-107); Creatine Kinase 67 U/L (30-135); Estimated Glomerular Filt Rate > 60 mL/min (>60); Globulin 2.4 g/dL (1.7-4.1); Glucose 90 mg/dL (70-100); HEMOLYSIS < 15 (0-50); Potassium 4.5 mmol/L (3.4-5.1); Sodium 139 mmol/L (137-145); Total Protein 6.5 g/dL (6.3-8.2)
[2024-03-02 17:21] LABS: Troponin I < 0.012 ng/mL (0.01-0.034)
[2024-03-02] MEDS: AMLODIPINE 5 MG TABLET 2.5 MG PO (17:51)
[2024-03-02] MEDS: ONDANSETRON 4 MG ODT SL (18:01)
[2024-03-02 18:23] LABS: Adenovirus Not Detected (Not Detect); B. parapertussis Not Detected (Not Detecte); Bordetella pertussis Not Detected (Not Detect); Chlamydophila pneumoniae Not Detected (Not Detect); Coronavirus 229E Not Detected (Not Detect); Coronavirus HKU1 Not Detected (Not Detect); Coronavirus NL 63 Not Detected (Not Detect); Coronavirus OC43 Not Detected (Not Detect); Human Metapneumovirus Not Detected (Not Detect); Human Rhinovirus/Enterovirus Not Detected (Not Detect); Influenza A Not Detected (Not Detect); Influenza B Not Detected (Not Detect); Mycoplasma pneumoniae Not Detected (Not Detect); Parainfluenza Virus 1 Not Detected (Not Detect); Parainfluenza Virus 2 Not Detected (Not Detect); Parainfluenza Virus 3 Not Detected (Not Detect); Parainfluenza Virus 4 Not Detected (Not Detect); Respiratory Syncytial Virus Not Detected (Not Detect); SARS- CoV-2 Not Detected (Not Detecte)
[2024-03-02 19:51] LABS: Creatine Kinase 60 U/L (30-135)
[2024-03-02 20:03] LABS: Troponin I < 0.012 ng/mL (0.01-0.034)
== END 2024-03-02 20:19 | disposition home or self-care (01) ==
PROVIDERS: Emergency Medicine; Emergency Provider Emergency Medicine; Family Provider Family Medicine; PCP Family Medicine
DX: R07.9 Chest pain, unspecified (principal); I10 Essential (primary) hypertension; Z11.52 Encounter for screening for COVID-19
CPT/HCPCS: 71045; 80053; 80329; 82550; 84484; 85025; 87633; 93005; 99283; 99284; G0480

== ENCOUNTER 2024-12-12 16:53 | Emergency (ER) | payer OTHER, SELFPAY ==
[2022-09-03 15:18] VITALS: BMI 40.1
[2024-12-12] VITALS (15 sets, daily range): BP systolic 180–228; BP diastolic 89–110; PULSE 63–87; RESP 13–32; TEMP 36.4–37; O2SAT 98–100; BMI 37.8
--- NOTE | 2024-12-12 17:10 | EKG_ITS ---
[facility] [id number] [place] [id number] Test Date: 2024-12-12 Pat Name: Imani Almanza Department: Room: Gender: Female Builder Beam: ARETHA : 1970 Requested By: Order Number: [id number] Reading MD: Sixto Castro Measurements Intervals [place] Rate: 65 P: 32 PA: 162 QRS: -7 QRSD: 102 T: 31 QT: 408 QTc: 424 Interpretive Statements Normal sinus rhythm Moderate voltage criteria for LVH, may be normal variant ( R in aVL , Adan product ) Electronically Signed On 12-14-2024 17:27:59 PDT by Sixto Castro
--- NOTE | 2024-12-12 17:10 | DI.RAD.S_ITS ---
PROCEDURE: XR CHEST 1V INDICATIONS: altered mental status TECHNIQUE: One view of the chest was acquired. COMPARISON: [facility], CR, XR CHEST 1V, 03/02/2024, 16:40. FINDINGS: Surgical changes and devices: None. Lungs and pleura: Lungs are clear. No pleural effusions or pneumothorax. Mediastinum: Mediastinal contours appear normal. Heart size is normal. Bones and chest wall: No suspicious bony lesions. Overlying soft tissues appear unremarkable. IMPRESSION: No acute cardiopulmonary abnormality is seen. Dictated by: Peter Holm M.D. on 12/12/2024 at 18:42 Approved by: Peter Holm M.D. on 12/12/2024 at 18:43
--- NOTE | 2024-12-12 18:30 | ED_ITS ---
HPI - General Adult General Chief complaint: Hypertension Stated complaint: Hypertension and difficulty staying awake Time Seen by Provider: 12/12/24 18:30 Source: patient and other Mode of arrival: Wheelchair History of Present Illness HPI narrative: 54-year-old female with history of hypertension, has been out of her amlodipine 5 mg daily dose for 2 months, had previously also been on metoprolol which she discontinued cassette made her feel weak, went to her primary care provider for refill of medications today, blood pressure markedly elevated, referred here. She denies any headache, focal neuro symptoms, nausea or vomiting, photophobia, neck pain, chest pain, shortness of breath, arm back or leg pains. Related Data Previous Rx's ?Medication ?Instructions ?Recorded Disabled Parking Permit See Rx Instructions .Route 0 11/09/23 .COMPLEX #1 ea amlodipine 5 mg tablet 5 mg PO DAILY #30 tabs 12/12 Allergies Allergy/AdvReac Type Severity Reaction Status Date / Time amoxicillin (AMOXICILLIN) Allergy Severe SWELLING Verified 12/12/24 17:00 FACE, THROAT & HIVES ALL OVER. Penicillins (PENICILLINS) Allergy Severe RASH/ITCHING, Verified 12/12/24 17:00 TROUBLE BREATHING. diphenhydramine Allergy Mild SWELLING. Verified 12/12/24 17:00 (DIPHENHYDRAMINE) latex (LATEX) Allergy Mild RASH Verified 12/12/24 17:00 magnesium citrate (MAGNESIUM AdvReac Unknown VOMITING Verified 12/12/24 17:00 CITRATE) Patient History Medical History Right ACL tear Obesity Sleep apnea Chest pressure Palpitations History of prediabetes Hypertension Fibromyalgia Surgical History H/O gastric bypass Social History household members: significant other and children Smoking Status: Current every day smoker alcohol intake: current Smoking Status: Current every day smoker tobacco type: cigarettes alcohol intake frequency: holidays/special occasions only Exam Narrative Exam Narrative: GENERAL: Well-developed patient, in mild distress. HEAD: Atraumatic. Normocephalic. EYES: Pupils equal round and reactive. Extraocular motions intact. No scleral icterus. No injection or drainage. ENT: Nose without bleeding, purulent drainage. Throat without erythema, tonsillar hypertrophy or exudate. Airway patent. NECK: Trachea midline. Non tender CARDIOVASCULAR: Regular rate and rhythm without murmurs, gallops, or rubs. RESPIRATORY: Clear to auscultation. Breath sounds equal bilaterally. No wheezes, rales, or rhonchi. GASTROINTESTINAL: Abdomen soft, non-tender, nondistended. EXTREMITIES: No edema or joint tenderness. BACK: Nontender without deformity or crepitance. No flank tenderness. NEURO: AOx3. Motor functions grossly nonfocal SKIN: No rash or erythema of visible areas Initial Vital Signs Initial Vital Signs: Vital Signs Temperature 97.5 F L 12/12/24 16:58 Pulse Rate 63 12/12/24 16:58 Respiratory Rate 19 12/12/24 16:58 Blood Pressure 228/109 H 12/12/24 16:58 Pulse Oximetry 100 12/12/24 16:58 Oxygen Delivery Method Room Air 12/12/24 16:58 Course Orders Ordered: ED Orders 12/12/24 17:10 XR chest 1V Stat Blood Culture Stat Urine Drug Screen, Rapid Stat EKG-12 Lead Stat 12/12/24 18:36 Complete Blood Count AUTO DIFF Stat Comprehensive Metabolic Panel Stat Ethanol (ETOH) Stat Lactate (Lactic Acid) Stat Procalcitonin Stat Troponin & CK Cardiac Panel Stat Hydralazine HCl (Hydralazine 20 Mg/Ml Vial) 10 mg IV Q6HR PRN PRN Reason: Hypertension Discontinued Medications Amlodipine Besylate (Amlodipine 5 Mg Tablet) 5 mg PO NOW ONE Stop: 12/12/24 18:39 Last Admin: 12/12/24 18:40 Dose: 5 mg Documented By: Hydralazine HCl (Hydralazine 20 Mg/Ml Vial) 5 mg IV NOW ONE Stop: 12/12/24 18:33 Last Admin: 12/12/24 18:39 Dose: 5 mg Documented By: Vital Signs Vital signs: Vital Signs - 8 hr 12/12/24 16:58 12/12/24 18:39 12/12/24 19:00 Temperature 97.5 F L Pulse Rate 63 85 68 Respiratory Rate 19 23 Blood Pressure 228/109 H 220/95 H Pulse Oximetry 100 98 Oxygen Delivery Method Room Air 12/12/24 19:01 12/12/24 19:01 12/12/24 19:07 Temperature Pulse Rate 67 Respiratory Rate 25 H Blood Pressure 215/101 H 180/102 H Pulse Oximetry 98 Oxygen Delivery Method 12/12/24 19:08 12/12/24 19:10 12/12/24 19:10 Temperature Pulse Rate 85 63 Respiratory Rate 21 Blood Pressure 180/110 H 196/94 H Pulse Oximetry 99 Oxygen Delivery Method 12/12/24 19:20 12/12/24 19:20 12/12/24 19:30 Temperature Pulse Rate 66 68 Respiratory Rate 20 Blood Pressure 206/98 H Pulse Oximetry 99 99 Oxygen Delivery Method 12/12/24 19:31 12/12/24 19:31 12/12/24 19:41 Temperature Pulse Rate 66 64 Respiratory Rate 13 20 Blood Pressure 208/91 H Pulse Oximetry 99 99 Oxygen Delivery Method 12/12/24 19:41 12/12/24 19:47 12/12/24 19:47 Temperature Pulse Rate 68 Respiratory Rate 32 H Blood Pressure 209/95 H 211/89 H Pulse Oximetry 99 Oxygen Delivery Method 12/12/24 19:51 12/12/24 19:51 12/12/24 19:58 Temperature 98.6 F Pulse Rate 68 85 Respiratory Rate 16 19 Blood Pressure 200/94 H 200/93 H Pulse Oximetry 98 98 Oxygen Delivery Method Room Air Medical Decision Making Lab Data Lab results reviewed: Yes I reviewed the patient's lab results. Lab results narrative: White blood cell count 7000, hemoglobin 13.4, platelets adequate. Glucose 88. Renal function normal. Electrolytes unremarkable. Serum CO2 28 normal. Liver functions normal. Troponin negative. CPK not elevated. 12/12/24 18:36 12/12/24 18:36 Labs: Lab Results 12/12/24 Range/Units 18:36 WBC 7.0 (4.5-11.0) X10^3/uL RBC 4.46 (4.0-5.2) X10^6/uL Hgb 13.4 (12.0-16.0) g/dL Hct 40.1 (36-46) % MCV 89.8 (80-100) fL MCH 30.1 (26-34) PG MCHC 33.6 (30-36) % RDW 13.8 (11.6-14.8) % Plt Count 221 (150-400) X10^3/uL Neut % (Auto) 59.6 (50-75) % Lymph % (Auto) 32.7 (25-40) % Tillman % (Auto) 5.8 (3-14) % Eos % (Auto) 1.4 L (2-4) % Baso % (Auto) 0.5 (0-2) % Neut # (Auto) 4200 (4083-5040) /uL Lymph # (Auto) 2300 (8902-0022) /uL Tillman # (Auto) 400 (0-900) /uL Eos # (Auto) 100 (0-450) /uL Baso # (Auto) 0 (0-100) /uL Sodium 137 (137-145) mmol/L Potassium 4.0 (3.4-5.1) mmol/L Chloride 103 (98-107) mmol/L Carbon Dioxide 28 (22-32) mmol/L BUN 11 (7-17) mg/dL Creatinine 0.63 (0.52-1.04) mg/dL Estimated GFR > 60 (>60) mL/min BUN/Creatinine Ratio 17.5 (6-22) Glucose 88 (70-99) mg/dL Lactate 0.9 (0.7-2.1) mmol/L Calcium 9.1 (8.4-10.2) mg/dL Total Bilirubin 0.4 (0.2-1.3) mg/dL AST 25 (14-36) IU/L ALT 31 (<35) IU/L Alkaline Phosphatase 82 (38-126) U/L Total Creatine Kinase 50 (30-135) U/L Troponin I < 0.012 (0.01-0.034) ng/mL Total Protein 6.9 (6.3-8.2) g/dL Albumin 4.4 (3.5-5.0) g/dL Globulin 2.5 (1.7-4.1) g/dL Albumin/Globulin Ratio 1.8 (1.0-2.8) Procalcitonin 0.048 (<0.5) ng/mL Ethyl Alcohol < 10 (<10) mg/dL Point of Care Testing Glucose POC 81 Point of care testing: Point of Care Testing Glucose POC 81 Imaging Data Chest x-ray: Radiologist's Impression: Close Chest X-Ray (Signed) Peter Holm - 12/12/24 [facility] [id number] [address] [place] [id number] XRay Report Signed Patient: Imani Almanza MR#: [id number] : 1970 Acct:[id number] Age/Sex: 54 / F Date of Service: 12/12/24 Loc: ED Accession Number: [id number] Procedure: XR chest 1V Ordering Provider: Marvel Abrams MD PROCEDURE: XR CHEST 1V INDICATIONS: altered mental status TECHNIQUE: One view of the chest was acquired. COMPARISON: [facility], , XR CHEST 1V, 03/02/2024, 16:40. FINDINGS: Surgical changes and devices: None. Lungs and pleura: Lungs are clear. No pleural effusions or pneumothorax. Mediastinum: Mediastinal contours appear normal. Heart size is normal. Bones and chest wall: No suspicious bony lesions. Overlying soft tissues appear unremarkable. IMPRESSION: No acute cardiopulmonary abnormality is seen. Dictated by: Peter Holm M.D. on 12/12/2024 at 18:42 Approved by: Peter Holm M.D. on 12/12/2024 at 18:43 ECG Data Attestation: I personally reviewed and interpreted this ECG as follows: Interpretation: Normal sinus rhythm with rate of 65. No obvious ST segment elevation or depression changes. MI 162, QRS 102, QTC 424. MDM Narrative Medical decision making narrative: 54-year-old female here for elevated blood pressure, sent from clinic, had run out of her amlodipine medication 2 months ago, presented to her PCP to restart/refill medications, found to have markedly elevated blood pressure. Here for further evaluation. Labs sent on triage. Patient has no chest pain or shortness of breath, no anginal equivalent symptoms. Afebrile, sirs screen negative. Chest x-ray ordered from triage, no acute changes. See radiology report. EKG shows no acute changes. Screening labs unremarkable as above, normal renal function, normal electrolytes, normal CBC, troponin negative. IV hydralazine 5 mg. Oral amlodipine 5 mg usual dose given, blood pressure improved. 180/93, decreasing. We will refill amlodipine 5 mg daily restart her previous medication dose, prescription sent to her pharmacy. We will hold metoprolol which she apparently did not tolerate and had self discontinued. Further blood pressure management with her PCP as an outpatient for now. Discharge Plan Departure Patient Disposition: Home Clinical Impression: Hypertension Activity Restrictions/Additional Instructions: Elevated blood pressure, history of hypertension, having been off amlodipine 5 mg daily dose for the last 2 months. Elevated blood pressure in clinic, referred here for further evaluation. Screening studies unremarkable. Given amlodipine, improvement in blood pressure. Prescription sent for restart to your pharmacy at [facility]. You had been on metoprolol in the past but apparently did not tolerate this, we will hold for now. Recheck your blood pressure in clinic on amlodipine restart later this week. Return to this/nearest emergency department for any change worsening symptoms or any concerns prior. Prescriptions: New amlodipine 5 mg tablet 5 mg PO DAILY Qty: 30 0RF No Action Disabled Parking Permit See Rx Instructions .ROUTE .COMPLEX Qty: 1 0RF Rx Instructions: I find this patient to be medically disabled and qualified for Disabled Parking as indicated, and signed, on the accompanying Disabled Parking Application for Individuals ; Referrals: Artur Baez, [Primary Care Provider, Family Practice] Stand Alone Forms: Patient Portal/API
[2024-12-12] MEDS: hydrALAZINE 20 MG/ML VIAL 5 MG IV (18:39)
[2024-12-12] MEDS: AMLODIPINE 5 MG TABLET PO (18:40)
[2024-12-12 19:08] LABS: Add Manual Diff / Slide Review NO; Basophils Absolute Auto 0 /uL (0-100); Basophils Percent Auto 0.5 % (0-2); Eosinophils Absolute Auto 100 /uL (0-450); Eosinophils Percent Auto 1.4 % (2-4); Hematocrit 40.1 % (36-46); Hemoglobin 13.4 g/dL (12.0-16.0); Lymphocytes Absolute Auto 2300 /uL (1100-4500); Lymphocytes Percent Auto 32.7 % (25-40); Mean Corpuscular HGB Conc 33.6 % (30-36); Mean Corpuscular Hemoglobin 30.1 PG (26-34); Mean Corpuscular Volume 89.8 fL (80-100); Monocytes Absolute Auto 400 /uL (0-900); Monocytes Percent Auto 5.8 % (3-14); Neutrophils Absolute Auto 4200 /uL (1500-7000); Neutrophils Percent Auto 59.6 % (50-75); Platelet Count 221 X10^3/uL (150-400); Red Blood Cell Count 4.46 X10^6/uL (4.0-5.2); Red Cell Distribution Width 13.8 % (11.6-14.8)
[2024-12-12 19:18] LABS: Alanine Aminotransferase 31 IU/L (<35); Albumin 4.4 g/dL (3.5-5.0); Albumin Globulin Ratio 1.8 (1.0-2.8); Alkaline Phosphatase 82 U/L (38-126); Aspartate Aminotransferase 25 IU/L (14-36); BUN Creatinine Ratio 17.5 (6-22); Bilirubin Total 0.4 mg/dL (0.2-1.3); Blood Urea Nitrogen 11 mg/dL (7-17); Calcium 9.1 mg/dL (8.4-10.2); Carbon Dioxide 28 mmol/L (22-32); Chloride 103 mmol/L (98-107); Creatine Kinase 50 U/L (30-135); Estimated Glomerular Filt Rate > 60 mL/min (>60); Ethanol (ETOH) < 10 mg/dL (<10); Globulin 2.5 g/dL (1.7-4.1); Glucose 88 mg/dL (70-99); HEMOLYSIS < 15 (0-50); Sodium 137 mmol/L (137-145); Total Protein 6.9 g/dL (6.3-8.2)
[2024-12-12 19:19] LABS: Lactate (Lactic Acid) 0.9 mmol/L (0.7-2.1)
[2024-12-12 19:30] LABS: Troponin I < 0.012 ng/mL (0.01-0.034)
[2024-12-12 19:35] LABS: Procalcitonin 0.048 ng/mL (<0.5)
== END 2024-12-12 20:00 | disposition home or self-care (01) ==
PROVIDERS: Emergency Medicine; Emergency Provider Emergency Medicine; Family Provider Family Medicine; PCP Family Medicine
DX: I10 Essential (primary) hypertension (principal); Z76.0 Encounter for issue of repeat prescription; F17.200 Nicotine dependence, unspecified, uncomplicated
CPT/HCPCS: 36415; 71045; 80053; 80320; 82550; 82962; 83605; 84145; 84484; 85025; 87040; 93005; 96374; 99284; J0360

== ENCOUNTER → 2025-03-22 15:14 | Outpatient (CLI) | payer OTHER, SELFPAY ==
[2022-09-03 15:18] VITALS: BMI 40.1
--- NOTE | 2025-03-22 15:18 | DI.RAD.S_ITS ---
PROCEDURE: XR HIP W PEL IF DONE RT 2V INDICATIONS: Progressive weight-bearing right hip pain TECHNIQUE: AP pelvis with lateral view(s) of the right hip(s). COMPARISON: None. FINDINGS: Bones: No fractures or dislocations. 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 Pelvic ring appears intact. No suspicious bony lesions. Soft tissues: The visualized bowel gas pattern is normal. No suspicious soft tissue calcifications. IMPRESSION: Degenerative change of the right hip without evidence of acute bony abnormality. Dictated by: Henry Amezcua M.D. on 03/26/2025 at 4:44 Approved by: Henry Amezcua M.D. on 03/26/2025 at 4:45
== END ==
PROVIDERS: Family Provider Family Medicine; PCP Family Medicine; Referring Provider Family Medicine; Visit Provider Family Medicine
DX: M25.551 Pain in right hip (principal); G89.29 Other chronic pain
CPT/HCPCS: 73502